=== PATIENT | male | born 1935 | race Caucasian/White ===

== ENCOUNTER 2017-01-02 07:20 | Inpatient (IN) | payer MEDICARE, OTHER ==
--- NOTE | 2017-01-02 08:18 | EDM.PDOC ---
ED HPI GENERAL MEDICAL PROBLEM - General Chief Complaint: Genitourinary Problem Stated Complaint: difficulty voiding Time Seen by Provider: 01/02/17 07:59 Source of Information: Reports: Patient, Family () History Limitations: Reports: No Limitations - History of Present Illness INITIAL COMMENTS - FREE TEXT/NARRATIVE: Patient presents with mild fever and difficulty urinating that started this morning. He was able to pass a small amount this AM and says he passed urine fine yesterday. He denies abdominal pain or flank pain. About a year ago he had a similar problem but was worse and was hospitalized. He has Parkinsons. - Related Data Allergies Allergy/AdvReac Type Severity Reaction Status Date / Time ceftriaxone sodium Allergy Shortness Verified 01/02/17 07:34 [From Rocephin] of Breath Penicillins Allergy Cannot Verified 01/02/17 07:34 Remember Home Meds: Home Meds Acetaminophen [Tylenol] 650 mg PO DAILY 11/15/15 [History] Aspirin 162 mg PO BRK 11/15/15 [History] Carbidopa/Levodopa [Carbidopa-Levodopa 25-100 Tab] 25 - 100 mg PO TID 11/15/15 [ History] Cholecalciferol (Vitamin D3) [D3-2000] 2,000 unit PO DAILY 11/15/15 [History] Cyanocobalamin (Vitamin B-12) [Cyanocobalamin Injection] 1,000 mcg IM Q30D 11/14 [History] Nitroglycerin [Nitrostat] 0.4 mg SL Q5M PRN 11/15/15 [History] Simvastatin [Zocor] 40 mg PO BEDTIME 11/15/15 [History] Lisinopril 5 mg PO DAILY 01/02/17 [History] Past Medical History HEENT History: Reports: Hard of Hearing Neurological History: Reports: Parkinson's - Past Surgical History Neurological Surgical History: Reports: None Social & Family History - Tobacco Use Smoking Status *Q: Former Smoker Years of Tobacco use: 60 Packs/Tins Daily: 1 Used Tobacco, but Quit: Yes Month Tobacco Last Used: 2012 Second Hand Smoke Exposure: Yes - Recreational Drug Use Recreational Drug Use: No ED ROS GENERAL - Review of Systems Review Of Systems: See Below Constitutional: Reports: Fever, Weakness (a little last two days). Denies: Chills HEENT: Denies: Ear Pain, Throat Pain Respiratory: Denies: Shortness of Breath, Cough Cardiovascular: Denies: Chest Pain, Edema, Lightheadedness, Syncope GI/Abdominal: Denies: Abdominal Pain, Vomiting : Reports: Urinary Retention. Denies: Flank Pain Musculoskeletal: Reports: No Symptoms Skin: Denies: Cyanosis, Jaundice, Mottled, Pallor, Diaphoresis Neurological: Denies: Confusion, Dizziness, Syncope, Trouble Speaking Psychiatric: Denies: Agitation, Anxiety ED EXAM, RENAL/ - Physical Exam Exam: See Below Exam Limited By: No Limitations General Appearance: Alert, WD/WN, No Apparent Distress Eye Exam: Bilateral Eye: EOMI, Normal Inspection, PERRL Ears: Normal External Exam, Hearing Grossly Normal Nose: No Blood Throat/Mouth: Normal Lips, Normal Voice, No Airway Compromise Head: Atraumatic, Normocephalic Neck: Normal Inspection, Supple, Non-Tender Respiratory/Chest: No Respiratory Distress, Lungs Clear, Normal Breath Sounds Cardiovascular: Regular Rate, Rhythm, No Murmur. No: Normal Peripheral Pulses ( all the peripheral pulses are a little weak, 1+ but cap refill is good) GI/Abdominal: Normal Bowel Sounds, Soft, Non-Tender, No Organomegaly Back Exam: No: CVA Tenderness (L), CVA Tenderness (R) Extremities: Normal Inspection, Normal Range of Motion, Non-Tender, No Pedal Edema, Normal Capillary Refill Neurological: Alert, Oriented, Normal Cognition, No Motor/Sensory Deficits Psychiatric: Normal Affect, Normal Mood Skin Exam: Warm, Dry, Intact, Normal Color, No Rash Course - Vital Signs Last Recorded V/S: Last Vital Signs Temp 97.4 F 01/02/17 08:31 Pulse 70 01/02/17 07:28 Resp 18 01/02/17 07:28 BP 130/61 01/02/17 07:28 Pulse Ox 92 L 01/02/17 07:28 - Orders/Labs/Meds Orders: Active Orders 24 hr Category Date Time Status CULTURE URINE [RM] Stat Lab 01/02/17 08:22 Ordered Labs: Laboratory Tests 01/02/17 01/02/17 01/02/17 Range/Units 08:00 08:00 08:20 WBC 10.4 H (5.0-10.0) 10^3/uL RBC 4.77 (4.50-6.00) 10^6/uL Hgb 13.8 (13.0-17.0) g/dL Hct 41.2 (40.0-52.0) % MCV 86.3 (82.0-92.0) fL MCH 29.0 (27.0-31.0) pg MCHC 33.6 (32.0-36.0) g/dL RDW 13.0 (11.5-14.5) % Plt Count 218 (150-300) 10^3/uL MPV 9.7 (7.4-10.4) fL Neut % (Auto) 81.4 H (50.0-70.0) % Lymph % (Auto) 11.2 L (20.0-40.0) % Hamlin % (Auto) 6.6 (2.0-8.0) % Eos % (Auto) 0.5 L (1.0-3.0) % Baso % (Auto) 0.3 (0.0-1.0) % Neut # (Auto) 8.4 H (2.5-7.0) 10^3/uL Lymph # (Auto) 1.2 (1.0-4.0) 10^3/uL Hamlin # (Auto) 0.7 (0.1-0.8) 10^3/uL Eos # (Auto) 0.1 (0.1-0.3) 10^3/uL Baso # (Auto) 0.0 (0.0-0.1) 10^3/uL Sodium 140 (136-145) mmol/L Potassium 4.0 (3.3-5.3) mmol/L Chloride 105 (98-115) mmol/L Carbon Dioxide 25.6 (21.0-32.0) mmol/L BUN 27 H (6-25) mg/dL Creatinine 1.49 H (0.51-1.17) mg/dL Est Cr Clr Drug Dosing TNP Estimated GFR (MDRD) 45 mL/min Glucose 126 H (70-110) mg/dL Calcium 8.7 (8.7-10.3) mg/dL Specimen Type Urincath Urine Color Yellow (YELLOW) Urine Appearance Cloudy H (CLEAR) Urine pH 6.0 (5.0-9.0) Ur Specific Dewey 1.020 (1.005-1.030) Urine Protein 30 H (NEGATIVE) mg/dL Urine Glucose (UA) Negative (NEGATIVE) mg/dL Urine Ketones 15 H (NEGATIVE) mg/dL Urine Occult Blood Large H (NEGATIVE) Urine Nitrite Negative (NEGATIVE) Urine Bilirubin Small H (NEGATIVE) Urine Urobilinogen 1.0 (0.2-1.0) E.U./dL Ur Leukocyte Esterase Negative (NEGATIVE) Urine RBC Semi-packed /HPF Urine WBC 0-5 /HPF Ur Epithelial Cells Few /LPF Urine Bacteria Few (NONE TO FEW) /HPF Meds: Medications Discontinued Medications Generic Name Dose Route Start Last Admin Trade Name Freq PRN Reason Stop Dose Admin Ciprofloxacin 500 mg 01/02/17 09:17 01/02/17 09:35 Ciprofloxacin Hcl PO 01/02/17 09:18 500 mg ONETIME ONE Administration Sodium Chloride 1,000 mls @ 999 mls/hr 01/02/17 09:17 01/02/17 09:26 Normal Saline IV 01/02/17 10:17 999 mls/hr .BOLUS ONE Administration - Re-Assessments/Exams Free Text/Narrative Re-Assessment/Exam: 01/02/17 09:18 Discussed findings with patient, his and with Estevan Vance, VIKTOR (PCP). Will give a fluid bolus and see if pt can void. Will also treat with Cipro now. 01/02/17 10:34 Follow one liter IV bolus patient felt urge to urinate but could not. Discussed with pt and with Estevan Vance and will admit for treatment. Will place Graves in ER. Departure - Departure Time of Disposition: 10:32 Disposition: Admitted As Inpatient 66 Condition: Good Clinical Impression: UTI (urinary tract infection), bacterial, Urine retention, Dehydration Fever Qualifiers: Fever type: unspecified Qualified Code(s): R50.9 - Fever, unspecified - Discharge Information Referrals: PCP,None [Primary Care Provider] - Forms: ED Department Discharge - My Orders Last 24 Hours: My Active Orders 01/02/17 08:22 CULTURE URINE [RM] Stat - Assessment/Plan Last 24 Hours: My Active Orders 01/02/17 08:22 CULTURE URINE [RM] Stat
[2017-01-02 08:25] LABS: CHLORIDE,CL 105 mmol/L (98-115); SODIUM,NA 140 mmol/L (136-145)
[2017-01-02] MEDS ORDERED: Sodium Chloride 0.9% 1,000 ML IV ONE (09:17)
[2017-01-02] MEDS ORDERED: Ciprofloxacin 500 MG Tab PO ONE (09:17)
[2017-01-02] MEDS ORDERED: Nitroglycerin 0.4 MG Tab.SL SL PRN (12:54)
[2017-01-02] MEDS ORDERED: Sodium Chloride 0.9% 1,000 ML IV SCH (13:00)
[2017-01-02] MEDS: Carbidopa/Levodopa 25-100 MG Tab PO SCH ×2 (14:46→20:45)
[2017-01-02] MEDS: Tamsulosin 0.4 MG Cap.ER PO SCH (17:49)
[2017-01-02] MEDS: Aspirin 81 MG Tab.Chew PO SCH (20:45)
[2017-01-02] MEDS: Ciprofloxacin in D5W 400 MG in Premix Bag 1 BAG IV SCH ×2 (20:48)
[2017-01-03] MEDS: Tamsulosin 0.4 MG Cap.ER PO SCH (08:34)
[2017-01-03] MEDS: Ciprofloxacin in D5W 400 MG in Premix Bag 1 BAG IV SCH ×4 (08:34→21:15)
[2017-01-03] MEDS: Lisinopril 5 MG Tab PO SCH (08:34)
[2017-01-03] MEDS: Carbidopa/Levodopa 25-100 MG Tab PO SCH ×3 (08:35→21:15)
[2017-01-03] MEDS: Acetaminophen 325 MG Tab PO SCH (08:35)
[2017-01-03] MEDS: Cholecalciferol (Vitamin D3) 1,000 Unit Tab PO SCH (08:35)
[2017-01-03] MEDS ORDERED: Tamsulosin 0.4 MG Cap.ER PO SCH (09:00)
[2017-01-03] MEDS: Sodium Chloride 0.9% 100 ML IV SCH (09:25)
--- NOTE | 2017-01-03 10:18 | PCM.HP ---
H&P History of Present Illness - General Date of Service: 01/03/17 Admit Problem/Dx: Admission Diagnosis/Problem Admission Diagnosis/Problem UTI (urinary tract infection), uncomplicated Source of Information: Patient, Old Records, Provider, RN History Limitations: Reports: No Limitations - History of Present Illness Initial Comments - Free Text/Narative: 81-year-old gentleman who I evaluated this morning for the first time was admitted through the ED yesterday he had come in for mild febrile episode and having some acute urinary retention which just started that morning. Patient states he normally has no difficulty passing urine but stated he only was able to pass a small amount this morning. He denies BPH or terminal dribbling. He had no abdominal pain or flank pain. Patient stated he was hospitalized for similar symptoms approximately 1 year ago. PSA March 2016 1.48 - Related Data Allergies/Adverse Reactions: Allergies Allergy/AdvReac Type Severity Reaction Status Date / Time ceftriaxone sodium Allergy Shortness Verified 01/02/17 07:34 [From Rocephin] of Breath Penicillins Allergy Cannot Verified 01/02/17 07:34 Remember Home Medications: Home Meds Acetaminophen [Tylenol] 650 mg PO DAILY 11/15/15 [History] Aspirin 162 mg PO BEDTIME 11/15/15 [History] Carbidopa/Levodopa [Carbidopa-Levodopa 25-100 Tab] 25 - 100 mg PO TID 11/15/15 [ History] Cholecalciferol (Vitamin D3) [D3-2000] 2,000 unit PO DAILY 11/15/15 [History] Cyanocobalamin (Vitamin B-12) [Cyanocobalamin Injection] 1,000 mcg IM Q30D 11/14 [History] Nitroglycerin [Nitrostat] 0.4 mg SL Q5M PRN 11/15/15 [History] Simvastatin [Zocor] 40 mg PO BEDTIME 11/15/15 [History] Lisinopril 5 mg PO DAILY 01/02/17 [History] Past Medical History HEENT History: Reports: Hard of Hearing Cardiovascular History: Reports: High Cholesterol, Hypertension Respiratory History: Reports: COPD Genitourinary History: Reports: UTI, Recurrent Musculoskeletal History: Reports: Arthritis, Other (See Below) Other Musculoskeletal History: parkinson's disease Neurological History: Reports: Parkinson's Hematologic History: Reports: B12 Deficiency - Past Surgical History Male Surgical History: Reports: None Neurological Surgical History: Reports: None Musculoskeletal Surgical History: Reports: None Social & Family History - Family History HEENT: Reports: None Cardiac: Reports: None, [place] (Parents with heart attack,) Respiratory: Reports: None GI: Reports: None : Reports: None OBGYN: Reports: None Musculoskeletal: Reports: None Neurological: Reports: None Psychiatric: Reports: None Endocrine/Metabolic: Reports: None Hematologic: Reports: None Immunologic: Reports: None Dermatologic: Reports: None Oncologic: Reports: Other (See Below) (Brother unknown cancer,) - Tobacco Use Smoking Status *Q: Former Smoker Years of Tobacco use: 60 Packs/Tins Daily: 1 Used Tobacco, but Quit: Yes Month Tobacco Last Used: 2012 Tobacco Use Comment: Smoked until 4 years ago. He was on spiriva,advair. He has been off of those medications for awhile. Second Hand Smoke Exposure: Yes - Caffeine Use Caffeine Use: Reports: Coffee - Recreational Drug Use Recreational Drug Use: No H&P Review of Systems - Review of Systems: Review Of Systems: See Below General: Reports: Fever. Denies: Chills, Malaise, Weakness, Fatigue, Night Sweats, Diaphoresis, Decreased Appetite, Weight Loss, Weight Gain HEENT: Reports: No Symptoms Pulmonary: Reports: No Symptoms Cardiovascular: Denies: Palpitations, Orthopnea, Edema, Blood Pressure Problem Gastrointestinal: Reports: Constipation (No bowel movement in 7 days). Denies: Abdominal Pain, Black Stool, Diarrhea, Decreased Appetite, Distension, Nausea Genitourinary: Reports: Retention. Denies: Pain, Urgency, Flank Pain Skin: Reports: No Symptoms Psychiatric: Reports: Confusion (Lucid this morning, however some confusion regarding recent illness and why he is in hospital) Neurological: Reports: Confusion. Denies: Paresthesia, Weakness, Change in Speech Hematologic/Lymphatic: Reports: No Symptoms Immunologic: Reports: No Symptoms Exam - Exam Exam: See Below - Vital Signs Vital Signs: Last Vital Signs Temp 99.8 F 01/03/17 06:27 Pulse 67 01/03/17 06:27 Resp 28 H 01/03/17 06:27 BP 146/81 H 01/03/17 08:34 Pulse Ox 91 L 01/03/17 06:27 Weight: 142 lb - Exam General: Alert. No: Oriented (Confused on day of week.) Neck: Supple. No: JVD Lungs: Clear to Auscultation Cardiovascular: Regular Rate, Regular Rhythm GI/Abdominal Exam: Normal Bowel Sounds, No Distention (Male) Exam: No Hernia. No: Hernia Rectal (Males) Exam: BPH. No: Prostate Normal (Mild to moderate prostate enlargement, no nodularity) Back Exam: No: CVA Tenderness (L), CVA Tenderness (R) Extremities: No: Pedal Edema Peripheral Pulses: 2+: Radial (L), Radial (R) Skin: Warm, Dry, Intact Neurological: Cranial Nerves Intact, Reflexes Equal Bilateral Neuro Extensive - Mental Status: Alert, Normal Mood/Affect, Memory Loss-Remote Events. No: Oriented x3, Disorientation to Place Neuro Extensive - Motor, Sensory, Reflexes: CN II-XII Intact, Normal Gait, Normal Reflexes Psychiatric: Alert, Normal Affect, Normal Mood - Patient Data Result Diagrams: 01/02/17 08:00 01/02/17 08:00 *Q Meaningful Use (ADM) - VTE *Q VTE Criteria *Q: - Stroke *Q Stroke Criteria *Q: - AMI *Q AMI Criteria *Q: Problem List Initiated/Reviewed/Updated: Yes Orders Last 24hrs: Active Orders 24 hr Category Date Time Status Daily Weight [Height and Weight] [RC] 0700 Care 01/02/17 13:00 Active Intake and Output [RC] 0600,1400,2200 Care 01/02/17 13:00 Active 2 Gram Sodium Diet [DIET] Diet 01/02/17 Dinner Active CULTURE BLOOD [BC] Stat Lab 01/02/17 13:45 Received CULTURE BLOOD [BC] Stat Lab 01/02/17 14:00 Received Acetaminophen [Tylenol] Med 01/03/17 09:00 Active 650 mg PO DAILY Aspirin Med 01/02/17 21:00 Active 162 mg PO BEDTIME Carbidopa/Levodopa [Sinemet 25-100 mg] Med 01/02/17 14:00 Active 1 tab PO TID Cholecalciferol (Vitamin D3) [Vitamin D3] Med 01/03/17 09:00 Active 2,000 units PO DAILY Ciprofloxacin in D5W [Cipro in D5W 400 MG/200 ML] 400 Med 01/02/17 21:00 Active mg Premix Bag 1 bag IV Q12H Lisinopril [Prinivil] Med 01/03/17 09:00 Active 5 mg PO DAILY Nitroglycerin [Nitrostat] Med 01/02/17 12:54 Active 0.4 mg SL Q5M PRN Sodium Chloride 0.9% [Normal Saline] 100 ml Med 01/03/17 09:00 Active IV DAILY@0900 Tamsulosin [Flomax] Med 01/02/17 18:00 Active 0.4 mg PO PCBREAKFAST Blood Culture x2 Reflex Set [OM.PC] Stat Oth 01/02/17 12:56 Ordered Medication Orders Acetaminophen (Tylenol) 650 mg PO DAILY [facility] Last Admin: 01/03/17 08:35 Dose: 650 mg Aspirin (Aspirin) 162 mg PO BEDTIME [facility] Last Admin: 01/02/17 20:45 Dose: 162 mg Carbidopa/Levodopa (Sinemet 25-100 Mg) 1 tab PO TID [facility] Last Admin: 01/03/17 08:35 Dose: 1 tab Admin: 01/02/17 20:45 Dose: 1 tab Admin: 01/02/17 14:46 Dose: 1 tab Cholecalciferol (Vitamin D3) 2,000 units PO DAILY [facility] Last Admin: 01/03/17 08:35 Dose: 2,000 units Ciprofloxacin/Dextrose 400 mg/ (Premix) 200 mls @ 200 mls/hr IV Q12H [facility] Last Admin: 01/03/17 08:34 Dose: 200 mls/hr Infusion: 01/02/17 21:48 Dose: 200 mls/hr Admin: 01/02/17 20:48 Dose: 200 mls/hr Sodium Chloride (Normal Saline) 100 mls @ 20 mls/hr IV DAILY@0900 [facility] Last Admin: 01/03/17 09:25 Dose: 20 mls/hr Lisinopril (Prinivil) 5 mg PO DAILY [facility] Last Admin: 01/03/17 08:34 Dose: 5 mg Nitroglycerin (Nitrostat) 0.4 mg SL Q5M PRN PRN Reason: Chest Pain Tamsulosin HCl (Flomax) 0.4 mg PO PCBREAKFAST [facility] Last Admin: 01/03/17 08:34 Dose: 0.4 mg Admin: 01/02/17 17:49 Dose: 0.4 mg Assessment/Plan Comment:: HISTORY OF PRESENT ILLNESS 81-year-old gentleman who I evaluated this morning for the first time was admitted through the ED yesterday he had come in for mild febrile episode and having some acute urinary retention which just started that morning. Patient states he normally has no difficulty passing urine but stated he only was able to pass a small amount this morning. He denies BPH or terminal dribbling. He had no abdominal pain or flank pain. Patient stated he was hospitalized for similar symptoms approximately 1 year ago. PSA March 2016 1.48 Pertinent ED workup, oral Cipro 1, gentle fluid bolus, Graves catheter, UA consistent with UTI--symptomatic CODE STATUS, full code Room number, 125 ____ Ongoing diagnostics procedures after patient arrived on the floor included changing oral to IV antibiotics, medication reconciliation, adding alpha-sarah , trial without catheter procedure (TWOC) adjusting IV fluids, urine cultures and blood culture surveillance, VANESSA for possible BPH. Primary assessment/plan Acute urinary retention, digital rectal exam this morning prostate size small to moderate, no nodularity, placed on alpha-sarah 0.4 mg by mouth daily Flomax , MAP good. Decompressed catheter yesterday been removed a last night at 2300, attempt a trial without catheter this morning. Bladder scan as directed. If no bowel movement past several days likely contributable to his retention, milk of magnesia today. Urinary tract infection, Cipro 400 mg IV twice a day based off estimated clearance, Urine and blood cultures pending, likely Escherichia coli. Type I hypersensitivity reaction to beta-lactamases. Will need blood culture surveillance Leukocytosis without reactive thrombocytosis, MAXIMUM TEMPERATURE 99.8, continue antibiotics, blood cultures pending, qSOFA 2/3. MAP good. Repeat today Chronic medical conditions HFpEF, grade 1 diastolic dysfunction, chronic, on afterload reduction, creatinine 1.49. Intake output, daily weights. Will monitor carefully for fluid overload Coronary artery disease, aspirin 81 mg Essential hypertension, BILL inhibitor, creatinine adequate Peripheral vascular disease, aspirin 81 mg Hyperlipidemia, on Zocor Parkinson's disease, controlled on Sinemet 25-100 Vitamin B12 deficiency, supplementation every month
[2017-01-03] MEDS: Magnesium Hydroxide 400 MG/5 ML Susp 30 ML Cup PO SCH (11:03)
[2017-01-03] MEDS: Aspirin 81 MG Tab.Chew PO SCH (21:15)
[2017-01-04] MEDS: Ciprofloxacin in D5W 400 MG in Premix Bag 1 BAG IV SCH ×4 (08:19→20:52)
[2017-01-04] MEDS: Sodium Chloride 0.9% 100 ML IV SCH ×2 (08:19→20:56)
[2017-01-04] MEDS: Magnesium Hydroxide 400 MG/5 ML Susp 30 ML Cup PO SCH (08:20)
[2017-01-04] MEDS: Carbidopa/Levodopa 25-100 MG Tab PO SCH ×3 (08:21→20:52)
[2017-01-04] MEDS: Acetaminophen 325 MG Tab PO SCH (08:21)
[2017-01-04] MEDS: Cholecalciferol (Vitamin D3) 1,000 Unit Tab PO SCH (08:21)
[2017-01-04] MEDS: Tamsulosin 0.4 MG Cap.ER PO SCH (08:21)
[2017-01-04] MEDS: Lisinopril 5 MG Tab PO SCH (08:22)
--- NOTE | 2017-01-04 10:46 | PCM.PN ---
- General Info Date of Service: 01/04/17 Functional Status: Reports: Pain Controlled, Tolerating Diet, Urinating (0500- post void residual of 195 after a 200 mL void reported. ) - Review of Systems General: Denies: Fever, Chills Pulmonary: Denies: Shortness of Breath Cardiovascular: Denies: Chest Pain, Edema Gastrointestinal: Reports: Constipation. Denies: Abdominal Pain Genitourinary: Reports: Frequency. Denies: Dysuria, Retention - Patient Data Vitals - Most Recent: Last Vital Signs Temp 97.0 F 01/04/17 06:50 Pulse 79 01/04/17 06:50 Resp 20 01/04/17 06:50 BP 152/70 H 01/04/17 08:22 Pulse Ox 91 L 01/04/17 06:50 Weight - Most Recent: 144 lb 6 oz I&O - Last 24 Hours: Intake & Output 01/03/17 01/04/17 01/04/17 22:59 06:59 14:59 Intake Total 120 100 Output Total 300 500 Balance -180 -400 Lab Results Last 24 Hours: Laboratory Results - last 24 hr 01/03/17 01/04/17 01/04/17 Range/Units 11:00 09:45 09:45 WBC 11.0 H 8.0 (5.0-10.0) 10^3/uL RBC 4.55 4.44 L (4.50-6.00) 10^6/uL Hgb 13.2 12.8 L (13.0-17.0) g/dL Hct 38.6 L 38.8 L (40.0-52.0) % MCV 84.8 87.4 (82.0-92.0) fL MCH 29.0 28.9 (27.0-31.0) pg MCHC 34.2 33.1 (32.0-36.0) g/dL RDW 12.8 12.6 (11.5-14.5) % Plt Count 197 208 (150-300) 10^3/uL MPV 9.1 9.5 (7.4-10.4) fL Neut % (Auto) 87.3 H 78.3 H (50.0-70.0) % Lymph % (Auto) 8.2 L 11.4 L (20.0-40.0) % Teller % (Auto) 3.8 7.2 (2.0-8.0) % Eos % (Auto) 0.6 L 2.2 (1.0-3.0) % Baso % (Auto) 0.1 0.9 (0.0-1.0) % Neut # (Auto) 9.6 H 6.2 (2.5-7.0) 10^3/uL Lymph # (Auto) 0.9 L 0.9 L (1.0-4.0) 10^3/uL Teller # (Auto) 0.4 0.6 (0.1-0.8) 10^3/uL Eos # (Auto) 0.1 0.2 (0.1-0.3) 10^3/uL Baso # (Auto) 0.0 0.1 (0.0-0.1) 10^3/uL Sodium 139 (136-145) mmol/L Potassium 3.7 (3.3-5.3) mmol/L Chloride 102 (98-115) mmol/L Carbon Dioxide 27.4 (21.0-32.0) mmol/L BUN 25 (6-25) mg/dL Creatinine 1.65 H (0.51-1.17) mg/dL Est Cr Clr Drug Dosing 32.52 mL/min Estimated GFR (MDRD) 40 mL/min Glucose 116 H (70-110) mg/dL Calcium 8.3 L (8.7-10.3) mg/dL [place] Results Last 24 Hours: Microbiology 01/02/17 14:00 Aerobic Blood Culture - Preliminary Blood - Venous - Lab Draw NO GROWTH AFTER 1 DAY Anaerobic Blood Culture - Preliminary NO GROWTH AFTER 1 DAY 01/02/17 13:45 Aerobic Blood Culture - Preliminary Blood - Venous NO GROWTH AFTER 1 DAY Anaerobic Blood Culture - Preliminary NO GROWTH AFTER 1 DAY Med Orders - Current: Current Medications Acetaminophen (Tylenol) 650 mg PO DAILY [facility] Last Admin: 01/04/17 08:21 Dose: 650 mg Aspirin (Aspirin) 162 mg PO BEDTIME [facility] Last Admin: 01/03/17 21:15 Dose: 162 mg Carbidopa/Levodopa (Sinemet 25-100 Mg) 1 tab PO TID [facility] Last Admin: 01/04/17 08:21 Dose: 1 tab Cholecalciferol (Vitamin D3) 2,000 units PO DAILY [facility] Last Admin: 01/04/17 08:21 Dose: 2,000 units Ciprofloxacin/Dextrose 400 mg/ (Premix) 200 mls @ 200 mls/hr IV Q12H [facility] Last Admin: 01/04/17 08:19 Dose: 200 mls/hr Sodium Chloride (Normal Saline) 100 mls @ 20 mls/hr IV DAILY@0900 [facility] Last Admin: 01/04/17 08:19 Dose: 20 mls/hr Lisinopril (Prinivil) 5 mg PO DAILY [facility] Last Admin: 01/04/17 08:22 Dose: 5 mg Magnesium Hydroxide (Milk Of Magnesia) 30 ml PO DAILY [facility] Last Admin: 01/04/17 08:20 Dose: 30 ml Nitroglycerin (Nitrostat) 0.4 mg SL Q5M PRN PRN Reason: Chest Pain Tamsulosin HCl (Flomax) 0.4 mg PO PCBREAKFAST [facility] Last Admin: 01/04/17 08:21 Dose: 0.4 mg Discontinued Medications Ciprofloxacin (Ciprofloxacin Hcl) 500 mg PO ONETIME ONE Stop: 01/02/17 09:18 Last Admin: 01/02/17 09:35 Dose: 500 mg Sodium Chloride (Normal Saline) 1,000 mls @ 999 mls/hr IV .BOLUS ONE Stop: 01/02/17 10:17 Last Admin: 01/02/17 09:26 Dose: 999 mls/hr Sodium Chloride (Normal Saline) 1,000 mls @ 60 mls/hr IV ASDIRECTED [facility] Stop: 01/02/17 23:00 Last Admin: 01/02/17 14:46 Dose: 60 mls/hr Tamsulosin HCl (Flomax) 0.4 mg PO PCBREAKFAST [facility] - Exam Quality Assessment: DVT Prophylaxis (Score of 3-placed on lovenox). No: Supplemental Oxygen, Urine Catheter General: Alert, Oriented, Cooperative, No Acute Distress Lungs: Clear to Auscultation, Normal Respiratory Effort Cardiovascular: Regular Rate, Regular Rhythm GI/Abdominal Exam: Normal Bowel Sounds, Soft, Non-Tender Extremities: No Pedal Edema Skin: Warm, Dry Psy/Mental Status: Alert, Normal Affect, Normal Mood - Problem List Review Problem List Initiated/Reviewed/Updated: Yes - My Orders Last 24 Hours: My Active Orders 01/04/17 10:35 Up With Assistance [RC] ASDIRECTED 01/04/17 10:36 Bladder Scan [RC] ASDIRECTED - Plan Plan:: Primary assessment/plan Acute urinary retention. Post residual revealed 195 mL after 200 mL active void. Will have nursing perform bladder scans after each void and will monitor residual. If residual consistently 300-350 or higher, will consider straight catheterization. Continue flomax. Patient asymptomatic. Creatinine up to 1.65, GFR 40. Repeat BMP in AM. UTI. WBC 8.0, left shift improving. Urine culture no growth after 2 days. Blood cultures x 2 showing no growth after 1 day. Continue IV Cipro today, then will consider change to Bactrim DS tomorrow. Constipation. Continue with milk of magnesia daily. Leukocytosis, improving. WBC 8.0. Secondary assessment/plan Chronic diastolic heart failure, stable. Weight same. Continue I & O and daily weights. Coronary artery disease. Continue aspirin. Hypertension. Continue lisinopril. Peripheral vascular disease. Hyperlipidemia. Continue zocor. Parkinson's disease. Continue sinemet. Vitamin B12 deficiency. Receives monthly b12 injections. DVT prophylaxis. Score of 3. Placed on lovenox 30 mg subQ daily due to creatinine. Overall plan: Will continue to monitor intake and output. Will bladder scan and monitor residuals. Plan of care reviewed with Dr. Khoury. She is in agreement with this plan of care.
[2017-01-04] MEDS: Enoxaparin 30 MG/0.3 ML Syringe SUBCUT SCH (12:42)
[2017-01-04] MEDS: Aspirin 81 MG Tab.Chew PO SCH ×2 (19:43→22:39)
[2017-01-05] MEDS: Ciprofloxacin in D5W 400 MG in Premix Bag 1 BAG IV SCH ×2 (08:58)
[2017-01-05] MEDS: Sodium Chloride 0.9% 100 ML IV SCH (08:58)
[2017-01-05] MEDS: Magnesium Hydroxide 400 MG/5 ML Susp 30 ML Cup PO SCH (08:59)
[2017-01-05] MEDS: Lisinopril 5 MG Tab PO SCH (09:00)
[2017-01-05] MEDS: Tamsulosin 0.4 MG Cap.ER PO SCH (09:00)
[2017-01-05] MEDS: Cholecalciferol (Vitamin D3) 1,000 Unit Tab PO SCH (09:01)
[2017-01-05] MEDS: Carbidopa/Levodopa 25-100 MG Tab PO SCH ×3 (09:01→20:46)
[2017-01-05] MEDS: Acetaminophen 325 MG Tab PO SCH (09:01)
[2017-01-05] MEDS: Enoxaparin 30 MG/0.3 ML Syringe SUBCUT SCH (09:04)
[2017-01-05] MEDS ORDERED: Sodium Chloride 0.9% 5 ML Syringe FLUSH PRN (10:40)
--- NOTE | 2017-01-05 11:09 | PCM.PN ---
- General Info Date of Service: 01/05/17 Functional Status: Reports: Tolerating Diet, Ambulating, Urinating (frequently with occasional unsuccessful attempts), New Symptoms (states he doesn't feel right today) - Review of Systems HEENT: Denies: Headaches Pulmonary: Denies: Shortness of Breath Cardiovascular: Denies: Chest Pain Gastrointestinal: Reports: Abdominal Pain (bloated feeling/discomfort), Nausea. Denies: Decreased Appetite, Vomiting Genitourinary: Reports: Frequency, Urgency, Retention - Patient Data Vitals - Most Recent: Last Vital Signs Temp 98.7 F 01/05/17 07:00 Pulse 66 01/05/17 07:00 Resp 20 01/05/17 07:00 BP 146/67 H 01/05/17 09:00 Pulse Ox 92 L 01/05/17 07:00 Weight - Most Recent: 143 lb 7 oz I&O - Last 24 Hours: Intake & Output 01/04/17 01/05/17 01/05/17 22:59 06:59 14:59 Intake Total 425 0 Output Total 500 200 Balance -75 -200 Lab Results Last 24 Hours: Laboratory Results - last 24 hr 01/05/17 Range/Units 07:25 Sodium 139 (136-145) mmol/L Potassium 4.1 (3.3-5.3) mmol/L Chloride 103 (98-115) mmol/L Carbon Dioxide 26.6 (21.0-32.0) mmol/L BUN 25 (6-25) mg/dL Creatinine 1.75 H (0.51-1.17) mg/dL Est Cr Clr Drug Dosing 30.47 mL/min Estimated GFR (MDRD) 38 mL/min Glucose 103 (70-110) mg/dL Calcium 8.6 L (8.7-10.3) mg/dL [place] Results Last 24 Hours: Microbiology 01/02/17 14:00 Aerobic Blood Culture - Preliminary Blood - Venous - Lab Draw NO GROWTH AFTER 2 DAYS Anaerobic Blood Culture - Preliminary NO GROWTH AFTER 2 DAYS 01/02/17 13:45 Aerobic Blood Culture - Preliminary Blood - Venous NO GROWTH AFTER 2 DAYS Anaerobic Blood Culture - Preliminary NO GROWTH AFTER 2 DAYS Med Orders - Current: Current Medications Acetaminophen (Tylenol) 650 mg PO DAILY [facility] Last Admin: 01/05/17 09:01 Dose: Not Given Aspirin (Aspirin) 162 mg PO BEDTIME [facility] Last Admin: 01/04/17 22:39 Dose: Not Given Carbidopa/Levodopa (Sinemet 25-100 Mg) 1 tab PO TID [facility] Last Admin: 01/05/17 09:01 Dose: 1 tab Cholecalciferol (Vitamin D3) 2,000 units PO DAILY [facility] Last Admin: 01/05/17 09:01 Dose: 2,000 units Enoxaparin Sodium (Lovenox) 30 mg SUBCUT DAILY [facility] Last Admin: 01/05/17 09:04 Dose: 30 mg Sodium Chloride (Normal Saline) 100 mls @ 20 mls/hr IV DAILY@0900 [facility] Last Admin: 01/05/17 08:58 Dose: 20 mls/hr Lisinopril (Prinivil) 5 mg PO DAILY [facility] Last Admin: 01/05/17 09:00 Dose: 5 mg Magnesium Hydroxide (Milk Of Magnesia) 30 ml PO DAILY [facility] Last Admin: 01/05/17 08:59 Dose: 30 ml Nitroglycerin (Nitrostat) 0.4 mg SL Q5M PRN PRN Reason: Chest Pain Sodium Chloride (Syrex Flush) 5 ml FLUSH Q8HR PRN PRN Reason: Keep Vein Open Tamsulosin HCl (Flomax) 0.4 mg PO PCBREAKFAST [facility] Last Admin: 01/05/17 09:00 Dose: 0.4 mg Terazosin HCl (Hytrin) 2 mg PO DAILY@2100 [facility] Trimethoprim/Sulfamethoxazole (Septra Ds) 1 tab PO BID [facility] Stop: 01/12/17 21:00 Discontinued Medications Ciprofloxacin (Ciprofloxacin Hcl) 500 mg PO ONETIME ONE Stop: 01/02/17 09:18 Last Admin: 01/02/17 09:35 Dose: 500 mg Sodium Chloride (Normal Saline) 1,000 mls @ 999 mls/hr IV .BOLUS ONE Stop: 01/02/17 10:17 Last Admin: 01/02/17 09:26 Dose: 999 mls/hr Sodium Chloride (Normal Saline) 1,000 mls @ 60 mls/hr IV ASDIRECTED [facility] Stop: 01/02/17 23:00 Last Admin: 01/02/17 14:46 Dose: 60 mls/hr Ciprofloxacin/Dextrose 400 mg/ (Premix) 200 mls @ 200 mls/hr IV Q12H [facility] Last Admin: 01/05/17 08:58 Dose: 200 mls/hr Tamsulosin HCl (Flomax) 0.4 mg PO PCBREAKFAST GRACE - Exam Quality Assessment: DVT Prophylaxis (Lovenox initiated yesterday). No: Supplemental Oxygen, Urine Catheter General: Alert, Oriented, Cooperative, Mild Distress Lungs: Clear to Auscultation, Normal Respiratory Effort Cardiovascular: Regular Rate, Regular Rhythm, No Murmurs GI/Abdominal Exam: Soft, Distended (mild), Abnormal Bowel Sounds (hyperactive x 4) Extremities: No Pedal Edema Skin: Warm, Dry Psy/Mental Status: Alert, Normal Affect, Normal Mood. No: Anxious - Problem List Review Problem List Initiated/Reviewed/Updated: Yes - My Orders Last 24 Hours: My Active Orders 01/04/17 10:35 Up With Assistance [RC] ASDIRECTED 01/04/17 11:00 Enoxaparin [Lovenox] 30 mg SUBCUT DAILY 01/04/17 19:46 Communication Order [RC] ROUTINE 01/04/17 21:00 Insert Urinary Catheter [OM.PC] Q24H 01/04/17 21:01 Urinary Catheter Assessment [RC] ASDIRECTED 01/05/17 10:16 Abdomen 1V Flat [CR] Routine Abdomen 1V Upright [CR] Routine 01/05/17 10:23 Communication Order [RC] PER UNIT ROUTINE 01/05/17 10:25 Vital Signs [RC] 0700,1500,2300 01/05/17 10:30 Sulfamethoxazole/Trimethoprim [Septra DS] 1 tab PO BID 01/05/17 10:40 Sodium Chloride 0.9% [Syrex Flush] 5 ml FLUSH Q8HR PRN Saline Lock Insert [OM.PC] Routine 01/05/17 21:00 Terazosin [Hytrin] 2 mg PO DAILY@2100 01/06/17 05:11 BASIC METABOLIC PANEL,BMP [CHEM] AM - Plan Plan:: Primary assessment/plan Acute urinary retention. Post residual 188 to 255 with a one time above 300ml. Straight catheter x 1 last evening for 300ml due to inability to void. Change bladder scans to every shift and PRN. Straight catherterization if post void residual greater then 350 ml. Added Terazosin 2 mg daily to current Flomax therapy. Creatinine today is 1.75. BUN/Creatinine ration 14:1 coinciding with post renal picture. BMP in AM. UTI. UTI resolving. Urine culture no growth. Cipro DC'd and started on oral Bactrim DS BID. Abdominal distention. Abdominal xray ordered. Constipation. Continue with milk of magnesia daily. Improving. Leukocytosis, Resolved. Secondary assessment/plan Chronic diastolic heart failure, stable. Weight same. Continue I & O and daily weights DC'd. Coronary artery disease. Continue aspirin. Hypertension. Continue lisinopril. Peripheral vascular disease. Hyperlipidemia. Continue zocor. Parkinson's disease. Continue sinemet. Vitamin B12 deficiency. Receives monthly b12 injections. DVT prophylaxis. Score of 3. Placed on lovenox 30 mg subQ daily due to creatinine. Overall plan: Will continue to monitor intake and output. Will bladder scan and monitor residuals. will await results of abdominal x ray. Plan of care reviewed with Dr. Khoury. She is in agreement with this plan of care.
[2017-01-05] MEDS: Sulfamethoxazole/Trimethoprim 800-160 MG Tab PO SCH ×2 (11:24→20:46)
[2017-01-05] MEDS: Aspirin 81 MG Tab.Chew PO SCH (20:45)
[2017-01-05] MEDS ORDERED: Melatonin 3 MG Tab PO SCH (21:00)
[2017-01-05] MEDS ORDERED: Terazosin 1 MG Cap PO SCH (21:00)
[2017-01-06 06:51] VITALS: BP 159/65
[2017-01-06] MEDS: Lisinopril 5 MG Tab PO SCH (08:05)
[2017-01-06] MEDS: Tamsulosin 0.4 MG Cap.ER PO SCH (08:05)
[2017-01-06] MEDS: Magnesium Hydroxide 400 MG/5 ML Susp 30 ML Cup PO SCH (08:05)
[2017-01-06] MEDS: Carbidopa/Levodopa 25-100 MG Tab PO SCH (08:06)
[2017-01-06] MEDS: Acetaminophen 325 MG Tab PO SCH (08:06)
[2017-01-06] MEDS: Cholecalciferol (Vitamin D3) 1,000 Unit Tab PO SCH (08:06)
[2017-01-06] MEDS: Enoxaparin 30 MG/0.3 ML Syringe SUBCUT SCH (08:09)
[2017-01-06] MEDS: Sulfamethoxazole/Trimethoprim 800-160 MG Tab PO SCH (08:09)
[2017-01-06] MEDS ORDERED: Tamsulosin 0.4 MG Cap.ER PO ONE (09:29)
--- NOTE | 2017-01-06 09:54 | PCM.DCSUM1 ---
Discharge Summary - Hospital Course Brief History: This is an 81 year old male who presented to the emergency room due to inability to void and a mild febrile episode. The patient denied any history of difficulty passing his urine. He had no abdominal pain or flank pain. He stated that he hadn't had a stool for a couple days. The emergency room evaluation included a UA positive for large blood and few bacteria; elevated WBC of 10.4 with a left shift; BUN 27, creatinine 1.49, and GFR 45. The patient was given IV Cipro and a sawant catheter was placed. The patient's past medical history is significant for CAD, hypertension, PVD, chronic diastolic heart failure, hyperlipidemia, B12 deficiency, and Parkinson's disease. He was admitted to the hospital for futher monitoring and workup of his acute condition. - Discharge Data Discharge Date: 01/06/17 Discharge Disposition: Home, Self-Care 01 Condition: Good - Patient Summary/Data Complications: Patient continued to retain between 200-288 mL of urine post void. Sawant catheter was reinserted. Consults: Dr. Ewing, urologist, [facility] Labs Pending at D/C: None Recommended Follow-up Testing/Procedures: The patient is to have an outpatient renal and bladder ultrasound on 01/07/17 at the [facility]. - Patient Instructions Diet: Regular Diet as Tolerated Diet, Other: Must drink plenty of water-at least 6 cups per day Activity: As Tolerated Driving: Do Not Drive Showering/Bathing: May Shower Notify Provider of: Fever, Increased Pain, Nausea and/or Vomiting Other/Special Instructions: You will have an ultrasound of your kidneys and bladder tomorrow (01/07/17) at the [facility]. The staff will call you in the morning to set up a time. Please continue with the catheter until you are evaluated by urology. - Discharge Plan Prescriptions/Med Rec: Polyethylene Glycol 3350 [Miralax] 17 gm PO DAILY #30 powd.pack Sulfamethoxazole/Trimethoprim [IJD: Sulfamethoxazole/Trimethoprim DS] 1 tab PO BID #11 tablet Tamsulosin [Flomax] 0.8 mg PO PCBREAKFAST #30 cap.er Home Medications: Home Meds Acetaminophen [Tylenol] 650 mg PO DAILY 11/15/15 [History] Aspirin 162 mg PO BEDTIME 11/15/15 [History] Carbidopa/Levodopa [Carbidopa-Levodopa 25-100 Tab] 25 - 100 mg PO TID 11/15/15 [ History] Cholecalciferol (Vitamin D3) [D3-2000] 2,000 unit PO DAILY 11/15/15 [History] Cyanocobalamin (Vitamin B-12) [Cyanocobalamin Injection] 1,000 mcg IM Q30D 11/14 [History] Nitroglycerin [Nitrostat] 0.4 mg SL Q5M PRN 11/15/15 [History] Simvastatin [Zocor] 40 mg PO BEDTIME 11/15/15 [History] Lisinopril 5 mg PO DAILY 01/02/17 [History] Polyethylene Glycol 3350 [Miralax] 17 gm PO DAILY #30 powd.pack 01/06/17 [Rx] Sulfamethoxazole/Trimethoprim [IJD: Sulfamethoxazole/Trimethoprim DS] 1 tab PO BID #11 tablet 01/06/17 [Rx] Tamsulosin [Flomax] 0.8 mg PO PCBREAKFAST #30 cap.er 01/06/17 [Rx] Forms: ED Department Discharge Referrals: Zeus Ewing MD [Physician] - (Referral has been made to Dr. Ewing, urologist , at [facility]. His office will call you to set up a date and time for this week. Please let the [facility] in [place] know if you have not heard from them by Friday. ) - Discharge Summary/Plan Comment DC Time >30 min.: No Discharge Summary/Plan Comment: Date of admission: 01/02/17 Date of discharge: 01/06/17 Admitting diagnosis: Primary: UTI, Acute urinary retention, Leukocytosis Secondary: Chronic diastolic heart failure, hypertension, CAD, PVD, Parkinson 's disease, hyperlipidemia, Vitamin B12 deficiency Final diagnosis: Primary: UTI, resolving; Acute urinary retention with acute kidney injury ( post-renal); Leukoctytosis, resolved; Constipation, resolved.; BPH Secondary: Chronic diastolic heart failure, hypertension, CAD, PVD, Parkinson 's disease, hyperlipidemia, Vitamin B12 deficiency Procedures performed: None Hospital Course: The patient's hospital course went fairly well. The patient had a sawant catheter placed initially, but this was removed a couple hours after as the bladder was felt to be decompressed. The patient was placed on flomax 0.4 mg daily. The patient had not had a bowel movement in a couple days, so daily milk of magnesia was added which produced daily results. The patient was treated for his UTI with IV Cipro for 48 hours. Urine culture as well as blood cultures were negative. He was switched to oral Bactrim. His white blood cell count had normalized. He remained afebrile throughout his stay. After the sawant catheter had been removed, the patient was able to void however with some difficulty. Bladder scans were performed for post void residual checks several times per day with a range of 188-290 mL. He was straight catheterized at one point due to inability to void for 30 minutes and this produced 300 mL of returns. The patient developed lower abdominal pain and nausea the day prior to discharge. He had an abdominal x-ray that was negative. Sawant catheter was re-inserted at that time with resolution of symptoms. UA was repeated at that time which showed moderate blood, but no bacteria or protein. Spot urine sodium was 113 and spot urine creatinine was 79.23. The same day his BUN was 25, creatinine 1.75, and GFR 38. Fractional excretion of sodium based on these results was 1.8 % thus coinciding with post-renal picture. Terazosin 2 mg daily was added at that time. On day of discharge, consult was placed to urologist, Dr. Ewing. He agreed that patient could be discharged with the catheter, obtaining renal and bladder ultrasound as outpatient, discontinuing terazosin and maximizing flomax , and then be seen in his clinic this week for evaluation and intervention. Discharge labs included WBC 8.0 with neutrophils elevated at 78.3%, BUN 23, creatinine 1.72, GFR 38. Patient does not have a prior history of chronic kidney disease. March 2016 labs included BUN 30, creatinine 0.79, and GFR > 90. PSA at that time was 1.48. The patient was continued on lisinopril for hypertension as creatinine clearance was adequate. New medications on discharge: -Flomax 0.8 mg po daily -Miralax 17 gm po daily -Bactrim DS 1 tab po BID (total of 7 days) New changes to home medications on discharge: None Regular home medications on discharge: -Tylenol 650 mg po daily -Lisinopril 5 mg po daily -Sinemet 25-100 mg po TID -Aspirin 162 mg po daily -Vitamin D3 2000 units po daily -Vitmamin B12 1000 mcg IM monthly -Zocor 40 mg po daily -Nitroglycerin 0.4 mg sublingual PRN Condition, Treatment, and Final Disposition: The patient is in stable condition at the time of discharge. He will be discharged home today with his . He will continue with the catheter until evaluated by urology. He will have a renal and bladder ultrasound done tomorrow at the [facility]. He will see Dr. Ewing, urologist, this week. - General Info Date of Service: 01/06/17 Functional Status: Reports: Pain Controlled, Tolerating Diet, Ambulating, Urinating (sawant catheter). Denies: New Symptoms - Review of Systems General: Denies: Fever, Weakness HEENT: Denies: Headaches Pulmonary: Denies: Shortness of Breath Cardiovascular: Denies: Chest Pain, Edema Gastrointestinal: Denies: Abdominal Pain, Constipation, Decreased Appetite, Diarrhea, Nausea, Vomiting Genitourinary: Denies: Dysuria, Frequency, Urgency Neurological: Denies: Headache - Patient Data Vitals - Most Recent: Last Vital Signs Temp 98.5 F 01/06/17 06:51 Pulse 64 01/06/17 06:51 Resp 20 01/06/17 06:51 BP 159/65 H 01/06/17 08:05 Pulse Ox 90 L 01/06/17 06:51 Weight - Most Recent: 143 lb 7 oz I&O - Last 24 hours: Intake & Output 01/05/17 01/06/17 01/06/17 22:59 06:59 14:59 Intake Total 100 0 Output Total 500 150 Balance -400 -150 Lab Results - Last 24 hrs: Laboratory Results - last 24 hr 01/05/17 01/05/17 01/06/17 Range/Units 12:50 12:50 07:10 WBC 8.0 (5.0-10.0) 10^3/uL RBC 4.46 L (4.50-6.00) 10^6/uL Hgb 12.8 L (13.0-17.0) g/dL Hct 38.1 L (40.0-52.0) % MCV 85.5 (82.0-92.0) fL MCH 28.6 (27.0-31.0) pg MCHC 33.5 (32.0-36.0) g/dL RDW 12.6 (11.5-14.5) % Plt Count 239 (150-300) 10^3/uL MPV 9.5 (7.4-10.4) fL Neut % (Auto) 78.3 H (50.0-70.0) % Lymph % (Auto) 14.4 L (20.0-40.0) % [place] % (Auto) 6.3 (2.0-8.0) % Eos % (Auto) 0.8 L (1.0-3.0) % Baso % (Auto) 0.2 (0.0-1.0) % Neut # (Auto) 6.2 (2.5-7.0) 10^3/uL Lymph # (Auto) 1.2 (1.0-4.0) 10^3/uL [place] # (Auto) 0.5 (0.1-0.8) 10^3/uL Eos # (Auto) 0.1 (0.1-0.3) 10^3/uL Baso # (Auto) 0.0 (0.0-0.1) 10^3/uL Sodium (136-145) mmol/L Potassium (3.3-5.3) mmol/L Chloride (98-115) mmol/L Carbon Dioxide (21.0-32.0) mmol/L BUN (6-25) mg/dL Creatinine (0.51-1.17) mg/dL Est Cr Clr Drug Dosing mL/min Estimated GFR (MDRD) mL/min Glucose (70-110) mg/dL Calcium (8.7-10.3) mg/dL Total Bilirubin (0.2-1.0) mg/dL AST (15-37) U/L ALT (12-78) U/L Alkaline Phosphatase (46-116) IU/L Total Protein (6.4-8.2) g/dL Albumin (3.00-4.80) g/dL Specimen Type Urincath Urine Color Yellow (YELLOW) Urine Appearance Slightly cloudy H (CLEAR) Urine pH 7.0 (5.0-9.0) Ur Specific [place] 1.020 (1.005-1.030) Urine Protein Negative (NEGATIVE) mg/dL Urine Glucose (UA) Negative (NEGATIVE) mg/dL Urine Ketones Negative (NEGATIVE) mg/dL Urine Occult Blood Moderate H (NEGATIVE) Urine Nitrite Negative (NEGATIVE) Urine Bilirubin Negative (NEGATIVE) Urine Urobilinogen 0.2 (0.2-1.0) E.U./dL Ur Leukocyte Esterase Negative (NEGATIVE) Urine RBC 20-30 H /HPF Urine WBC 0-5 /HPF Ur Epithelial Cells Rare /LPF Urine Bacteria Few (NONE TO FEW) /HPF Ur Random Sodium 113.0 (40.0-220.0) mmol/L 01/06/17 Range/Units 07:10 WBC (5.0-10.0) 10^3/uL RBC (4.50-6.00) 10^6/uL Hgb (13.0-17.0) g/dL Hct (40.0-52.0) % MCV (82.0-92.0) fL MCH (27.0-31.0) pg MCHC (32.0-36.0) g/dL RDW (11.5-14.5) % Plt Count (150-300) 10^3/uL MPV (7.4-10.4) fL Neut % (Auto) (50.0-70.0) % Lymph % (Auto) (20.0-40.0) % [place] % (Auto) (2.0-8.0) % Eos % (Auto) (1.0-3.0) % Baso % (Auto) (0.0-1.0) % Neut # (Auto) (2.5-7.0) 10^3/uL Lymph # (Auto) (1.0-4.0) 10^3/uL [place] # (Auto) (0.1-0.8) 10^3/uL Eos # (Auto) (0.1-0.3) 10^3/uL Baso # (Auto) (0.0-0.1) 10^3/uL Sodium 138 (136-145) mmol/L Potassium 4.2 (3.3-5.3) mmol/L Chloride 103 (98-115) mmol/L Carbon Dioxide 25.3 (21.0-32.0) mmol/L BUN 23 (6-25) mg/dL Creatinine 1.72 H (0.51-1.17) mg/dL Est Cr Clr Drug Dosing 31.00 mL/min Estimated GFR (MDRD) 38 mL/min Glucose 113 H (70-110) mg/dL Calcium 8.6 L (8.7-10.3) mg/dL Total Bilirubin 0.4 (0.2-1.0) mg/dL AST 12 L (15-37) U/L ALT 9 L (12-78) U/L Alkaline Phosphatase 62 (46-116) IU/L Total Protein 6.7 (6.4-8.2) g/dL Albumin 2.99 L (3.00-4.80) g/dL Specimen Type Urine Color (YELLOW) Urine Appearance (CLEAR) Urine pH (5.0-9.0) Ur Specific [place] (1.005-1.030) Urine Protein (NEGATIVE) mg/dL Urine Glucose (UA) (NEGATIVE) mg/dL Urine Ketones (NEGATIVE) mg/dL Urine Occult Blood (NEGATIVE) Urine Nitrite (NEGATIVE) Urine Bilirubin (NEGATIVE) Urine Urobilinogen (0.2-1.0) E.U./dL Ur Leukocyte Esterase (NEGATIVE) Urine RBC /HPF Urine WBC /HPF Ur Epithelial Cells /LPF Urine Bacteria (NONE TO FEW) /HPF Ur Random Sodium (40.0-220.0) mmol/L ARMIDA Results - Last 24 hrs: Microbiology 01/02/17 14:00 Aerobic Blood Culture - Preliminary Blood - Venous - Lab Draw NO GROWTH AFTER 3 DAYS Anaerobic Blood Culture - Preliminary NO GROWTH AFTER 3 DAYS 01/02/17 13:45 Aerobic Blood Culture - Preliminary Blood - Venous NO GROWTH AFTER 3 DAYS Anaerobic Blood Culture - Preliminary NO GROWTH AFTER 3 DAYS Med Orders - Current: Current Medications Acetaminophen (Tylenol) 650 mg PO DAILY [facility] Last Admin: 01/06/17 08:06 Dose: 650 mg Aspirin (Aspirin) 162 mg PO BEDTIME [facility] Last Admin: 01/05/17 20:45 Dose: 162 mg Carbidopa/Levodopa (Sinemet 25-100 Mg) 1 tab PO TID [facility] Last Admin: 01/06/17 08:06 Dose: 1 tab Cholecalciferol (Vitamin D3) 2,000 units PO DAILY [facility] Last Admin: 01/06/17 08:06 Dose: 2,000 units Enoxaparin Sodium (Lovenox) 30 mg SUBCUT DAILY [facility] Last Admin: 01/06/17 08:09 Dose: 30 mg Lisinopril (Prinivil) 5 mg PO DAILY [facility] Last Admin: 01/06/17 08:05 Dose: 5 mg Magnesium Hydroxide (Milk Of Magnesia) 30 ml PO DAILY [facility] Last Admin: 01/06/17 08:05 Dose: 30 ml Melatonin (Melatonin) 3 mg PO BEDTIME [facility] Last Admin: 01/05/17 20:46 Dose: 3 mg Nitroglycerin (Nitrostat) 0.4 mg SL Q5M PRN PRN Reason: Chest Pain Sodium Chloride (Syrex Flush) 5 ml FLUSH Q8HR PRN PRN Reason: Keep Vein Open Tamsulosin HCl (Flomax) 0.8 mg PO PCBREAKFAST [facility] Trimethoprim/Sulfamethoxazole (Septra Ds) 1 tab PO BID [facility] Stop: 01/12/17 21:00 Last Admin: 01/06/17 08:09 Dose: 1 tab Discontinued Medications Ciprofloxacin (Ciprofloxacin Hcl) 500 mg PO ONETIME ONE Stop: 01/02/17 09:18 Last Admin: 01/02/17 09:35 Dose: 500 mg Sodium Chloride (Normal Saline) 1,000 mls @ 999 mls/hr IV .BOLUS ONE Stop: 01/02/17 10:17 Last Admin: 01/02/17 09:26 Dose: 999 mls/hr Sodium Chloride (Normal Saline) 1,000 mls @ 60 mls/hr IV ASDIRECTED [facility] Stop: 01/02/17 23:00 Last Admin: 01/02/17 14:46 Dose: 60 mls/hr Ciprofloxacin/Dextrose 400 mg/ (Premix) 200 mls @ 200 mls/hr IV Q12H [facility] Last Admin: 01/05/17 08:58 Dose: 200 mls/hr Sodium Chloride (Normal Saline) 100 mls @ 20 mls/hr IV DAILY@0900 [facility] Last Admin: 01/05/17 08:58 Dose: 20 mls/hr Tamsulosin HCl (Flomax) 0.4 mg PO PCBREAKFAST [facility] Tamsulosin HCl (Flomax) 0.4 mg PO PCBREAKFAST [facility] Last Admin: 01/06/17 08:05 Dose: 0.4 mg Tamsulosin HCl (Flomax) 0.4 mg PO ONETIME ONE Stop: 01/06/17 09:30 Terazosin HCl (Hytrin) 2 mg PO DAILY@2100 [facility] Last Admin: 01/05/17 20:45 Dose: 2 mg - Exam Quality Assessment: Reports: Urine Catheter (sawant-dark yellow returns), DVT Prophylaxis (lovenox). Denies: Supplemental Oxygen General: Reports: Alert, Oriented, Cooperative, No Acute Distress Lungs: Reports: Clear to Auscultation, Normal Respiratory Effort Cardiovascular: Reports: Regular Rate, Regular Rhythm, No Murmurs GI/Abdominal Exam: Normal Bowel Sounds, Soft, Non-Tender, No Distention Extremities: No Pedal Edema Skin: Reports: Warm, Dry Neurological: Reports: Normal Speech Psy/Mental Status: Reports: Alert, Normal Affect, Normal Mood *Q Meaningful Use (DIS) - VTE *Q VTE Criteria *Q: - Stroke *Q Stroke Criteria *Q: - AMI *Q AMI Criteria *Q:
[2017-01-07] MEDS ORDERED: Tamsulosin 0.4 MG Cap.ER PO SCH (09:00)
== END 2017-01-06 10:47 | disposition home or self-care (01) | DRG 690 ==
LOC: KA.ED 07:20 → KA.MS 10:31
PROVIDERS: ADMIT Physician Assistant Surgical; ATTEND Family Medicine
DX: N39.0 Urinary tract infection, site not specified (principal); R50.9 Fever, unspecified; I50.32 Chronic diastolic (congestive) heart failure; N17.9 Acute kidney failure, unspecified; R33.9 Retention of urine, unspecified; Z79.899 Other long term (current) drug therapy; D72.829 Elevated white blood cell count, unspecified; I10 Essential (primary) hypertension; G20 Parkinson's disease; I73.9 Peripheral vascular disease, unspecified; E53.8 Deficiency of other specified B group vitamins; K59.00 Constipation, unspecified; N40.0 Benign prostatic hyperplasia without lower urinary tract symptoms; Z88.0 Allergy status to penicillin; Z88.8 Allergy status to other drugs, medicaments and biological substances; Z87.891 Personal history of nicotine dependence
CPT/HCPCS: 36415; 51798; 80048; 81001; 85025; 87086; 96360; 99284 ×2; A9270; J7030; 74020; 80053; 82570; 84300; 87040; J0744; J1650; J7050

== ENCOUNTER 2017-03-13 19:08 | Emergency (ER) | payer MEDICARE, OTHER ==
--- NOTE | 2017-03-13 19:45 | EDM.PDOC ---
ED HPI GENERAL MEDICAL PROBLEM - General Chief Complaint: Genitourinary Problem Stated Complaint: CATHETER NOT WORKING Time Seen by Provider: 03/13/17 19:33 Source of Information: Reports: Patient, Family History Limitations: Reports: No Limitations - History of Present Illness INITIAL COMMENTS - FREE TEXT/NARRATIVE: 81 YO WM presents to ER complaining of possible sawant catheter malfunction. Pt had his sawant catheter changed twice this week and came to ER last night complaining of urinary urgency and mild dysuria. Pt was found to have a urinary tract infection and started on septra DS. Pt reports his symptoms of urinary urgency and frequency have improved but tonight he noticed only a small amount of urine in his sawant catheter bag prompting ER evaluation. Pt denies any abdominal pain, fever/chills or back pain. Onset: Today Onset Date: 03/13/17 Duration: Day(s): (3) Severity: Mild Improves with: Reports: None Worsens with: Reports: None Associated Symptoms: Denies: Fever/Chills, Malaise, Nausea/Vomiting, Rash - Related Data Allergies Allergy/AdvReac Type Severity Reaction Status Date / Time ceftriaxone sodium Allergy Shortness Verified 03/12/17 19:13 [From Rocephin] of Breath Penicillins Allergy Cannot Verified 03/12/17 19:13 Remember Home Meds: Home Meds Acetaminophen [Tylenol] 650 mg PO DAILY 11/15/15 [History] Aspirin 162 mg PO BEDTIME 11/15/15 [History] Carbidopa/Levodopa [Carbidopa-Levodopa 25-100 Tab] 25 - 100 mg PO TID 11/15/15 [ History] Cholecalciferol (Vitamin D3) [D3-2000] 2,000 unit PO DAILY 11/15/15 [History] Cyanocobalamin (Vitamin B-12) [Cyanocobalamin Injection] 1,000 mcg IM Q30D 11/14 [History] Nitroglycerin [Nitrostat] 0.4 mg SL Q5M PRN 11/15/15 [History] Simvastatin [Zocor] 40 mg PO BEDTIME 11/15/15 [History] Lisinopril 5 mg PO DAILY 01/02/17 [History] Polyethylene Glycol 3350 [Miralax] 17 gm PO DAILY #30 powd.pack 01/06/17 [Rx] Sulfamethoxazole/Trimethoprim [IJD: Sulfamethoxazole/Trimethoprim DS] 1 tab PO BID #11 tablet 01/06/17 [Rx] Tamsulosin [Flomax] 0.8 mg PO PCBREAKFAST #30 cap.er 01/06/17 [Rx] Sulfamethoxazole/Trimethoprim [Septra DS] 1 tab PO BID #18 tablet 03/12/17 [Rx] Past Medical History HEENT History: Reports: Hard of Hearing Cardiovascular History: Reports: High Cholesterol, Hypertension Respiratory History: Reports: COPD Genitourinary History: Reports: UTI, Recurrent Musculoskeletal History: Reports: Arthritis, Other (See Below) Other Musculoskeletal History: parkinson's disease Neurological History: Reports: Parkinson's Hematologic History: Reports: B12 Deficiency - Past Surgical History Male Surgical History: Reports: None Neurological Surgical History: Reports: None Musculoskeletal Surgical History: Reports: None Social & Family History - Family History Family Medical History: Noncontributory HEENT: Reports: None Cardiac: Reports: None, [place] Respiratory: Reports: None GI: Reports: None : Reports: None OBGYN: Reports: None Musculoskeletal: Reports: None Neurological: Reports: None Psychiatric: Reports: None Endocrine/Metabolic: Reports: None Hematologic: Reports: None Immunologic: Reports: None Dermatologic: Reports: None Oncologic: Reports: Other (See Below) - Tobacco Use Smoking Status *Q: Former Smoker Years of Tobacco use: 60 Packs/Tins Daily: 1 Used Tobacco, but Quit: Yes Month Tobacco Last Used: 2012 Second Hand Smoke Exposure: Yes - Caffeine Use Caffeine Use: Reports: Coffee - Recreational Drug Use Recreational Drug Use: No ED ROS GENERAL - Review of Systems Review Of Systems: See Below Constitutional: Reports: No Symptoms HEENT: Reports: No Symptoms Respiratory: Reports: No Symptoms Cardiovascular: Reports: No Symptoms Endocrine: Reports: No Symptoms GI/Abdominal: Reports: No Symptoms : Reports: Frequency, Urgency Musculoskeletal: Reports: No Symptoms Skin: Reports: No Symptoms Neurological: Reports: No Symptoms Psychiatric: Reports: No Symptoms Hematologic/Lymphatic: Reports: No Symptoms Immunologic: Reports: No Symptoms ED EXAM, RENAL/ - Physical Exam Exam: See Below Exam Limited By: No Limitations General Appearance: Alert, WD/WN, No Apparent Distress Head: Atraumatic, Normocephalic Neck: Normal Inspection, Supple, Non-Tender, Full Range of Motion Respiratory/Chest: No Respiratory Distress, Lungs Clear, Normal Breath Sounds, No Accessory Muscle Use, Chest Non-Tender Cardiovascular: Normal Peripheral Pulses, Regular Rate, Rhythm, No Edema, No Gallop, No JVD, No Murmur, No Rub GI/Abdominal: Normal Bowel Sounds, Soft, Non-Tender, No Organomegaly, No Distention, No Abnormal Bruit, No Mass Back Exam: Normal Inspection, Full Range of Motion, NT Extremities: Normal Inspection, Normal Range of Motion, Non-Tender, Normal Capillary Refill, No Pedal Edema Neurological: Alert, Oriented, CN II-XII Intact, Normal Cognition, Normal Gait, Normal Reflexes, No Motor/Sensory Deficits Psychiatric: Normal Affect, Normal Mood Skin Exam: Warm, Dry, Intact, Normal Color, No Rash Lymphatic: No Adenopathy Departure - Departure Time of Disposition: 20:03 Disposition: Home, Self-Care 01 Condition: Good Clinical Impression: UTI, Urinary tract infectious disease Malfunction of Sawant catheter Qualifiers: Encounter type: subsequent encounter Qualified Code(s): T83.011D - Breakdown ( mechanical) of indwelling urethral catheter, subsequent encounter - Discharge Information Instructions: Sawant Catheter Care, Adult, Urinary Tract Infection, Adult, Easy- to-Read Referrals: Estevan Vance [employer] [Primary Care Provider] - Forms: ED Department Discharge - Assessment/Plan Assessment:: 1. urinary tract infection 2. sawant catheter malfunction Plan: 1. discharge home 2. continue septra DS bid x 10 days 3. follow up at the clinic for further evaluation and treatment 4. return to ER for worsening symptoms
[2017-03-13 22:22] VITALS: BP 141/52
== END 2017-03-13 20:35 | disposition home or self-care (01) ==
LOC: KA.ED 19:08
DX: T83.011D Breakdown (mechanical) of indwelling urethral catheter, subsequent encounter (principal); N39.0 Urinary tract infection, site not specified; I10 Essential (primary) hypertension; E78.00 Pure hypercholesterolemia, unspecified; Z87.891 Personal history of nicotine dependence; Z79.82 Long term (current) use of aspirin; Z79.899 Other long term (current) drug therapy; Z88.0 Allergy status to penicillin; Z88.1 Allergy status to other antibiotic agents
CPT/HCPCS: 51701; 51702; 99283

== ENCOUNTER 2017-03-14 14:54 | Observation (INO) | payer MEDICARE, OTHER ==
[2017-03-14] MEDS ORDERED: Sodium Chloride 0.9% 5 ML Syringe FLUSH PRN (15:42)
[2017-03-14] MEDS: Sodium Chloride 0.9% 1,000 ML IV SCH (16:35)
[2017-03-14] MEDS: Ciprofloxacin 250 MG Tab PO SCH ×2 (16:35→21:11)
[2017-03-14] MEDS ORDERED: Nitroglycerin 0.4 MG Tab.SL SL PRN (19:09)
[2017-03-14] MEDS: Aspirin 81 MG Tab.Chew PO SCH (21:11)
[2017-03-14] MEDS: Carbidopa/Levodopa 25-100 MG Tab PO SCH (21:11)
[2017-03-14] MEDS: Simvastatin 20 MG Tab PO SCH (21:11)
[2017-03-14] MEDS: Tamsulosin 0.4 MG Cap.ER PO SCH (21:11)
[2017-03-14] MEDS: Melatonin 3 MG Tab PO PRN (23:16)
[2017-03-15] MEDS: Sodium Chloride 0.9% 1,000 ML IV SCH ×3 (02:37→22:25)
[2017-03-15] MEDS: Melatonin 3 MG Tab PO PRN (02:39)
[2017-03-15] MEDS: Acetaminophen 325 MG Tab PO PRN ×2 (04:34→19:43)
[2017-03-15] MEDS: Ciprofloxacin 250 MG Tab PO SCH ×3 (07:24→21:18)
[2017-03-15] MEDS: Carbidopa/Levodopa 25-100 MG Tab PO SCH ×3 (08:23→18:10)
[2017-03-15] MEDS: Acetaminophen 325 MG Tab PO SCH (08:23)
[2017-03-15] MEDS: Lisinopril 5 MG Tab PO SCH (08:23)
[2017-03-15] MEDS: Cholecalciferol (Vitamin D3) 1,000 Unit Tab PO SCH (08:23)
--- NOTE | 2017-03-15 12:16 | PCM.PN ---
- General Info Date of Service: 03/15/17 Admission Dx/Problem (Free Text): 81 yo old male was seen in the clinic by Dr Rodriguez 03/14/17 for decreased urinary output. Pt has an indwelling urinary Sawant catheter due to urinary retention and BPH. He is awaiting cardiac clearance for urological consult and possible TURP. He was seen previously on 03/11/17 at which time a new Sawant was placed due to possible malfunction. Pt was seen in the ERc twice between 03/11/17 and 03/14/17 with complaints of possible sawant cath malfunction and decreased urinary output. He does admit to poor oral intake. On 03/12/17 he was started on Bactrim for UTI. Pt was admitted to the hospital 03/14/17 with decreased urinary output, liely related to decreased fluid intake. He has been on strict I&O, oral fluids are being pushed and he is on NS at 100 ml/hr for fluid replacement. He has BPH and awaiting transurethral laser prostate reduction. - Review of Systems General: Reports: No Symptoms HEENT: Reports: No Symptoms Pulmonary: Reports: No Symptoms Cardiovascular: Reports: No Symptoms Gastrointestinal: Reports: Constipation Genitourinary: Reports: Other (complaint of pain around sawant catheter) Musculoskeletal: Reports: No Symptoms Skin: Reports: No Symptoms Psychiatric: Reports: Other (Poor memory. Question dementia) - Patient Data Vitals - Most Recent: Last Vital Signs Temp 98.8 F 03/15/17 06:00 Pulse 66 03/15/17 06:00 Resp 20 03/15/17 06:00 BP 135/63 03/15/17 08:23 Pulse Ox 94 L 03/15/17 06:00 Weight - Most Recent: 142 lb 12.8 oz I&O - Last 24 Hours: Intake & Output 03/14/17 03/15/17 03/15/17 22:59 06:59 14:59 Intake Total 1110 925 Output Total 200 225 Balance 910 700 Lab Results Last 24 Hours: Laboratory Results - last 24 hr 03/15/17 Range/Units 07:10 Sodium 135 L (136-145) mmol/L Potassium 4.1 (3.3-5.3) mmol/L Chloride 105 (98-115) mmol/L Carbon Dioxide 22.4 (21.0-32.0) mmol/L BUN 24 (6-25) mg/dL Creatinine 1.50 H (0.51-1.17) mg/dL Est Cr Clr Drug Dosing 32.34 mL/min Estimated GFR (MDRD) 45 mL/min Glucose 94 (70-110) mg/dL Calcium 8.3 L (8.7-10.3) mg/dL Total Bilirubin 0.8 (0.2-1.0) mg/dL AST 13 L (15-37) U/L ALT 8 L (12-78) U/L Alkaline Phosphatase 76 (46-116) IU/L Total Protein 6.2 L (6.4-8.2) g/dL Albumin 2.85 L (3.00-4.80) g/dL Med Orders - Current: Current Medications Acetaminophen (Tylenol) 325 mg PO DAILY [facility] Last Admin: 03/15/17 08:23 Dose: 325 mg Acetaminophen (Tylenol) 325 mg PO Q4H PRN PRN Reason: Pain Last Admin: 03/15/17 04:34 Dose: 325 mg Aspirin (Aspirin) 81 mg PO BEDTIME [facility] Last Admin: 03/14/17 21:11 Dose: 81 mg Carbidopa/Levodopa (Sinemet 25-100 Mg) 1 tab PO TIDMEALS [facility] Last Admin: 03/15/17 08:23 Dose: 1 tab Cholecalciferol (Vitamin D3) 2,000 units PO DAILY [facility] Last Admin: 03/15/17 08:23 Dose: 2,000 units Ciprofloxacin (Ciprofloxacin Hcl) 250 mg PO BID [facility] Last Admin: 03/15/17 08:23 Dose: 250 mg Sodium Chloride (Normal Saline) 1,000 mls @ 100 mls/hr IV ASDIRECTED [facility] Last Admin: 03/15/17 02:37 Dose: 100 mls/hr Lisinopril (Prinivil) 5 mg PO DAILY [facility] Last Admin: 03/15/17 08:23 Dose: 5 mg Melatonin (Melatonin) 3 mg PO BEDTIME PRN PRN Reason: Insomnia Last Admin: 03/15/17 02:39 Dose: 3 mg Nitroglycerin (Nitrostat) 0.4 mg SL Q5M PRN PRN Reason: Chest Pain Simvastatin (Zocor) 40 mg PO BEDTIME [facility] Last Admin: 03/14/17 21:11 Dose: 40 mg Sodium Chloride (Syrex Flush) 5 ml FLUSH Q8HR PRN PRN Reason: Keep Vein Open Tamsulosin HCl (Flomax) 0.4 mg PO BEDTIME [facility] Last Admin: 03/14/17 21:11 Dose: 0.4 mg - Exam General: Alert, No Acute Distress, Other (pleasant, cooperative.) Lungs: Clear to Auscultation, Normal Respiratory Effort Cardiovascular: Regular Rate, Regular Rhythm GI/Abdominal Exam: Soft, Non-Tender (Male) Exam: Other (sawant catheter in place and draining clear pennie urine. Edema of penis and scrotum with erythema. Creamy yellow discharge at sawant site. Tender with exam.) Extremities: No Pedal Edema Skin: Other (See ) Neurological: No New Focal Deficit Psy/Mental Status: Alert - Problem List Review Problem List Initiated/Reviewed/Updated: Yes - My Orders Last 24 Hours: My Active Orders 03/14/17 19:09 Nitroglycerin [Nitrostat] 0.4 mg SL Q5M PRN 03/14/17 19:15 Carbidopa/Levodopa [Sinemet 25-100 mg] 1 tab PO TIDMEALS 03/14/17 21:00 Aspirin 81 mg PO BEDTIME Simvastatin [Zocor] 40 mg PO BEDTIME Tamsulosin [Flomax] 0.4 mg PO BEDTIME 03/14/17 22:51 Melatonin 3 mg PO BEDTIME PRN 03/15/17 04:13 Acetaminophen [Tylenol] 325 mg PO Q4H PRN 03/15/17 09:00 Acetaminophen [Tylenol] 325 mg PO DAILY Cholecalciferol (Vitamin D3) [Vitamin D3] 2,000 units PO DAILY Lisinopril [Prinivil] 5 mg PO DAILY - Assessment Assessment:: Brief history: 81 yo old male was seen in the clinic by Dr Rodriguez 03/14/17 for decreased urinary output. Pt has an indwelling urinary Sawant catheter due to urinary retention and BPH. He is awaiting cardiac clearance for urological consult and possible TURP. He was seen previously on 03/11/17 at which time a new Sawant was placed due to possible malfunction. Pt was seen in the ERc twice between 03/11/17 and 03/14/17 with complaints of possible sawant cath malfunction and decreased urinary output. He does admit to poor oral intake. On 03/12/17 he was started on Bactrim for UTI. Pt was admitted to the hospital 03/14/17 with decreased urinary output, likely related to decreased fluid intake. He has been on strict I&O, oral fluids are being pushed and he is on NS at 100 ml/hr for fluid replacement. IMPRESSION/PLAN: 1. UTI: continue Cipro. 2. Decreased urinary output with dehydration. Creatinine is near normal at 1.50, BUN 24, GFR is 45. Last GFR in the clinic was 66 last month. Will continue IV fluids and recheck BMP tomorrow. I&O showing intake greater than output. 3. History of Diastolic heart failure: Lung sounds are clear. No pedal edema. We will continue to monitor this closely. 4. Insomnia: Did not have any improvement with melatonin last night. Will give remeron 15 mg q hs prn. 5. BPH: continue flomax. awaiting transurethral laser prostate reduction. 6. Parkinson's : Continue same sinamet. - Plan Plan:: .
[2017-03-15] MEDS ORDERED: Magnesium Hydroxide 400 MG/5 ML Susp 30 ML Cup PO PRN (12:21)
[2017-03-15] MEDS: Nystatin Topical Powder 15 GM Bottle TOP SCH ×2 (14:14→21:32)
[2017-03-15] MEDS ORDERED: Mirtazapine 15 MG Tab PO PRN (21:16)
[2017-03-15] MEDS: Aspirin 81 MG Tab.Chew PO SCH (21:18)
[2017-03-15] MEDS: Simvastatin 20 MG Tab PO SCH (21:18)
[2017-03-15] MEDS: Tamsulosin 0.4 MG Cap.ER PO SCH (21:18)
[2017-03-16 07:07] VITALS: BP 127/65
[2017-03-16] MEDS: Lisinopril 5 MG Tab PO SCH (08:12)
[2017-03-16] MEDS: Ciprofloxacin 250 MG Tab PO SCH (08:12)
[2017-03-16] MEDS: Carbidopa/Levodopa 25-100 MG Tab PO SCH ×2 (08:12→12:08)
[2017-03-16] MEDS: Cholecalciferol (Vitamin D3) 1,000 Unit Tab PO SCH (08:12)
[2017-03-16] MEDS: Acetaminophen 325 MG Tab PO SCH (08:12)
[2017-03-16] MEDS: Nystatin Topical Powder 15 GM Bottle TOP SCH (08:20)
--- NOTE | 2017-03-16 12:45 | PCM.DCSUM1 ---
Discharge Summary - Discharge Data Discharge Date: 03/16/17 Discharge Disposition: Home, Self-Care 01 Condition: Fair - Discharge Diagnosis/Problem(s) (1) Urine retention SNOMED Code(s): 499412786 ICD Code: R33.9 - RETENTION OF URINE, UNSPECIFIED Status: Chronic Current Visit: No (2) Moderate dehydration SNOMED Code(s): 5046829467322 ICD Code: E86.0 - DEHYDRATION Status: Acute Current Visit: Yes (3) Recurrent dehydration SNOMED Code(s): 56411773 ICD Code: E86.0 - DEHYDRATION Status: Acute Current Visit: Yes - Patient Instructions Diet: Drink 8-10+ Glasses/Day Activity: As Tolerated Driving: Do Not Drive Showering/Bathing: May Shower Notify Provider of: Fever, Swelling and Redness, Drainage, Nausea and/or Vomiting - Discharge Plan Home Medications: Home Meds Acetaminophen [Tylenol] 325 mg PO DAILY 11/15/15 [History] Aspirin 81 mg PO BEDTIME 11/15/15 [History] Carbidopa/Levodopa [Carbidopa-Levodopa 25-100 Tab] 25 - 100 mg PO TIDMEALS 11/14 [History] Cholecalciferol (Vitamin D3) [D3-2000] 2,000 unit PO DAILY 11/15/15 [History] Nitroglycerin [Nitrostat] 0.4 mg SL Q5M PRN 11/15/15 [History] Simvastatin [Zocor] 40 mg PO BEDTIME 11/15/15 [History] Lisinopril 5 mg PO DAILY 01/02/17 [History] Tamsulosin [Flomax] 0.4 mg PO BEDTIME 03/14/17 [History] Ciprofloxacin [Ciprofloxacin HCl] 250 mg PO BID tablet 03/16/17 [Rx] Nystatin [Nystop] 1 applic TOP TID bottle 03/16/17 [Rx] Referrals: Niki Jane PA-C [[employer] [employer]] - - Discharge Summary/Plan Comment Discharge Summary/Plan Comment: Brief history/ hospital course: 81 yo old male was admitted directly from the clinic by Dr Rodriguez 03/14/17 for decreased urinary output. Pt has an indwelling urinary Sawant catheter due to urinary retention and BPH. He is awaiting cardiac clearance for urological consult and possible TURP. He was seen previously on 03/11/17 at which time a new Sawant was placed due to possible malfunction. Pt was seen in the ERc twice between 03/11/17 and 03/14/17 with complaints of possible sawant cath malfunction and decreased urinary output. He admits to poor oral intake. On 03/12/17 he was started on Bactrim for UTI. 1. Decreased urinary output due to poor oral intake: He had IV fluids at 100 cc/ hr and oral fluids were pushed. His Intake continued to be greater than output until last night at which time he had diuresis of 1300 cc clear pennie urine per Sawant. BMP is showing CKD stage 3 with GFR 47. BUN was 21 and creatinine 1.44 on discharge. He is to take at least 2 quarts of water daily. states she will help with that. Pt does have mild dementia. 2. UTI treated with cipro. Will continue Cipro 250 mg bid x 3 more days. 3. History of diastolic heart failure: This was monitored closely. Lungs were clear on discharge, no pedal edema during stay. 4. Insomnia: he slept well with remeron. Both pt and think he will not be needing this at home. 5. BPH: continue flomax and sawant cath. Awaiting TURP. 6. Parkinson's: continue sinamet. Pt is to Follow up with PCP, Niki Jane in 1 week. - Patient Data Vitals - Most Recent: Last Vital Signs Temp 96.1 F 03/16/17 09:21 Pulse 65 03/16/17 07:00 Resp 28 H 03/16/17 07:00 BP 127/65 03/16/17 08:12 Pulse Ox 93 L 03/16/17 07:00 Weight - Most Recent: 142 lb 12.8 oz I&O - Last 24 hours: Intake & Output 03/15/17 03/16/17 03/16/17 22:59 06:59 14:59 Intake Total 1145 915 142 Output Total 400 1300 Balance 745 -385 142 Lab Results - Last 24 hrs: Laboratory Results - last 24 hr 03/16/17 03/16/17 Range/Units 07:35 07:35 WBC 8.8 (5.0-10.0) 10^3/uL RBC 4.28 L (4.50-6.00) 10^6/uL Hgb 11.8 L (13.0-17.0) g/dL Hct 36.9 L (40.0-52.0) % MCV 86.3 (82.0-92.0) fL MCH 27.6 (27.0-31.0) pg MCHC 32.0 (32.0-36.0) g/dL RDW 13.4 (11.5-14.5) % Plt Count 229 (150-300) 10^3/uL MPV 9.8 (7.4-10.4) fL Neut % (Auto) 80.6 H (50.0-70.0) % Lymph % (Auto) 11.2 L (20.0-40.0) % Wagoner % (Auto) 6.7 (2.0-8.0) % Eos % (Auto) 0.6 L (1.0-3.0) % Baso % (Auto) 0.9 (0.0-1.0) % Neut # (Auto) 7.0 (2.5-7.0) 10^3/uL Lymph # (Auto) 1.0 (1.0-4.0) 10^3/uL Wagoner # (Auto) 0.6 (0.1-0.8) 10^3/uL Eos # (Auto) 0.1 (0.1-0.3) 10^3/uL Baso # (Auto) 0.1 (0.0-0.1) 10^3/uL Sodium 137 (136-145) mmol/L Potassium 4.1 (3.3-5.3) mmol/L Chloride 107 (98-115) mmol/L Carbon Dioxide 21.3 (21.0-32.0) mmol/L BUN 21 (6-25) mg/dL Creatinine 1.44 H (0.51-1.17) mg/dL Est Cr Clr Drug Dosing 33.69 mL/min Estimated GFR (MDRD) 47 mL/min Glucose 86 (70-110) mg/dL Calcium 8.4 L (8.7-10.3) mg/dL Med Orders - Current: Current Medications Acetaminophen (Tylenol) 325 mg PO DAILY [facility] Last Admin: 03/16/17 08:12 Dose: 325 mg Acetaminophen (Tylenol) 325 mg PO Q4H PRN PRN Reason: Pain Last Admin: 03/15/17 19:43 Dose: 325 mg Aspirin (Aspirin) 81 mg PO BEDTIME [facility] Last Admin: 03/15/17 21:18 Dose: 81 mg Carbidopa/Levodopa (Sinemet 25-100 Mg) 1 tab PO TIDMEALS [facility] Last Admin: 03/16/17 12:08 Dose: 1 tab Cholecalciferol (Vitamin D3) 2,000 units PO DAILY [facility] Last Admin: 03/16/17 08:12 Dose: 2,000 units Ciprofloxacin (Ciprofloxacin Hcl) 250 mg PO BID [facility] Last Admin: 03/16/17 08:12 Dose: 250 mg Sodium Chloride (Normal Saline) 1,000 mls @ 100 mls/hr IV ASDIRECTED [facility] Last Admin: 03/15/17 22:25 Dose: 100 mls/hr Lisinopril (Prinivil) 5 mg PO DAILY [facility] Last Admin: 03/16/17 08:12 Dose: 5 mg Magnesium Hydroxide (Milk Of Magnesia) 30 ml PO BEDTIME PRN PRN Reason: Constipation Last Admin: 03/16/17 08:11 Dose: 30 ml Melatonin (Melatonin) 3 mg PO BEDTIME PRN PRN Reason: Insomnia Last Admin: 03/15/17 02:39 Dose: 3 mg Mirtazapine (Remeron) 15 mg PO BEDTIME PRN PRN Reason: Insomnia Last Admin: 03/15/17 21:18 Dose: 15 mg Nitroglycerin (Nitrostat) 0.4 mg SL Q5M PRN PRN Reason: Chest Pain Nystatin (Nystop) 0 gm TOP TID [facility] Last Admin: 03/16/17 08:20 Dose: 1 applic Simvastatin (Zocor) 40 mg PO BEDTIME [facility] Last Admin: 03/15/17 21:18 Dose: 40 mg Sodium Chloride (Syrex Flush) 5 ml FLUSH Q8HR PRN PRN Reason: Keep Vein Open Tamsulosin HCl (Flomax) 0.4 mg PO BEDTIME [facility] Last Admin: 03/15/17 21:18 Dose: 0.4 mg *Q Meaningful Use (DIS) - VTE *Q VTE Criteria *Q: - Stroke *Q Stroke Criteria *Q: - AMI *Q AMI Criteria *Q:
== END 2017-03-16 12:21 | disposition home or self-care (01) ==
LOC: KA.MS 14:54
PROVIDERS: ADMIT Family Medicine; ATTEND Nurse Practitioner Family
DX: R34 Anuria and oliguria (principal); E86.0 Dehydration; G20 Parkinson's disease; G47.00 Insomnia, unspecified; N39.0 Urinary tract infection, site not specified; N40.0 Benign prostatic hyperplasia without lower urinary tract symptoms; N48.89 Other specified disorders of penis; N50.89 Other specified disorders of the male genital organs; I50.30 Unspecified diastolic (congestive) heart failure; Z79.82 Long term (current) use of aspirin; Z79.899 Other long term (current) drug therapy; Z96.0 Presence of urogenital implants
CPT/HCPCS: 36415; 80048; 80053; 85025; A9270; J7030; 96360; 96361; G0378

== ENCOUNTER 2017-07-09 07:56 | Day surgery (SDC) | payer MEDICARE, OTHER ==
[2017-07-09] MEDS ORDERED: Ketamine 500 mg/10 ML MDV IV ONE (07:57)
[2017-07-09] MEDS ORDERED: fentaNYL 100 MCG/2 ML SDV IV ONE (07:57)
[2017-07-09] MEDS ORDERED: Midazolam 1 MG/ML 2 ML SDV IV ONE (07:57)
[2017-07-09] MEDS ORDERED: Propofol 200 MG/20 ML SDV IV ONE (07:57)
[2017-07-09] MEDS ORDERED: Lactated Ringers 1,000 ML IV SCH (08:00)
[2017-07-09] MEDS ORDERED: Sodium Chloride 0.9% 5 ML Syringe FLUSH PRN (08:00)
[2017-07-09] MEDS ORDERED: Midazolam 1 MG/ML 2 ML SDV ONE (08:34)
[2017-07-09] MEDS ORDERED: fentaNYL 100 MCG/2 ML SDV ONE (08:35)
[2017-07-09] MEDS ORDERED: Propofol 200 MG/20 ML SDV ONE ×2 (08:36→09:47)
[2017-07-09] MEDS ORDERED: Lidocaine 1% with EPINEPHrine 1:100,000 20 ML MDV ONE (08:39)
[2017-07-09] MEDS ORDERED: Bupivacaine 0.5% 30 ML SDV ONE (08:39)
[2017-07-09] MEDS ORDERED: Bupivacaine 0.5%/EPINEPHrine 1:200,000 30 ML SDV ONE (09:21)
[2017-07-09] MEDS ORDERED: Ketamine 500 mg/10 ML MDV ONE (09:22)
[2017-07-09] MEDS ORDERED: Bupivacaine 0.5%/EPINEPHrine 1:200,000 30 ML SDV INFILT ONE (09:31)
[2017-07-09] MEDS ORDERED: Lidocaine 2% Jelly 5 ML Tube ONE (09:40)
--- NOTE | 2017-07-09 10:28 | PCM.OPNOTE ---
- General Post-Op/Procedure Note Date of Surgery/Procedure: 07/09/17 Operative Procedure(s): Insertion of suprapubic catheter via trocar. Cystoscopy. Findings: This patient has had a long-standing problem with bladder atony. He has had a TURP. Unfortunately he was still retaining urine. Therefore decision has been made to place a permanent suprapubic catheter. Anesthesia Technique: MAC Primary Surgeon: Jaskaran Childs Condition: Good Free Text/Narrative:: Preoperative diagnosis: Chronic urinary retention. Postoperative diagnosis: As above Procedure performed: Introduction of suprapubic catheter via trocar and cystoscopy Informed consent was obtained from the patient regarding this procedure. All possible complications including the possibility of internal organ injury were discussed with patient. He decided to proceed. He was taken to the operating room and kept in the supine position. His abdomen was thoroughly prepped and draped in usual fashion. Ultrasound guidance was used for placement of suprapubic catheter using the trocar technique. Marcaine 0.5% with epinephrine was used for skin and deeper anesthesia. A small skin incision was made and the suprapubic trocar was introduced into the bladder using ultrasound guidance. We first verified the depth of insertion using a spinal needle. After that the trocar was introduced followed by catheter. There was clear urine running out of the trocar and the catheter. Cystoscopy was performed and the position of the catheter inside the bladder was verified. The patient tolerated the procedure very well.
[2017-07-09 11:46] VITALS: BP 143/69
== END 2017-07-09 14:15 | disposition home or self-care (01) ==
LOC: KA.SDS 07:56
PROVIDERS: ATTEND Family Medicine
DX: R33.9 Retention of urine, unspecified (principal); N40.1 Benign prostatic hyperplasia with lower urinary tract symptoms; I25.10 Atherosclerotic heart disease of native coronary artery without angina pectoris; E78.2 Mixed hyperlipidemia; I73.9 Peripheral vascular disease, unspecified; I10 Essential (primary) hypertension; Z79.899 Other long term (current) drug therapy
CPT/HCPCS: 00910; J2250; J2704; J3010; J7120

== ENCOUNTER 2019-06-12 11:24 | Emergency (ER) | payer MEDICARE, OTHER ==
[2019-06-12] MEDS ORDERED: Sodium Chloride 0.9% 1,000 ML IV ONE ×2 (11:46→13:08)
[2019-06-12] MEDS ORDERED: Sodium Chloride 0.9% 10 ML Syringe FLUSH PRN (11:46)
--- NOTE | 2019-06-12 12:31 | EDM.PDOC ---
ED HPI GENERAL MEDICAL PROBLEM - General Chief Complaint: Abdominal Pain Stated Complaint: ABDOMINAL PAIN,COUGH SYMPTOMS, WEAKNESS Time Seen by Provider: 06/12/19 11:36 Source of Information: Reports: Patient History Limitations: Reports: No Limitations - History of Present Illness INITIAL COMMENTS - FREE TEXT/NARRATIVE: Patient is an 83-year-old gentleman who presents to the emergency department via private vehicle with a complaint of lower abdominal pain. Patient currently has a chronic suprapubic indwelling urinary catheter secondary to prostate cancer. He was seen at [facility] one week ago and had catheter replaced. Patient states over the last week He's had some mild to moderate suprapubic discomfort, but the catheter seems to be working. Patient denies fever, nausea, vomiting, diarrhea, chest pain, shortness of breath, displacement of the catheter, testicular pain, or flank pain. Onset: Gradual Duration: Day(s): Location: Reports: Abdomen Quality: Reports: Pressure Severity: Mild Improves with: Reports: None Worsens with: Reports: None Associated Symptoms: Reports: No Other Symptoms - Related Data Allergies Allergy/AdvReac Type Severity Reaction Status Date / Time ceftriaxone sodium Allergy Shortness Verified 06/12/19 11:45 [From Rocephin] of Breath Penicillins Allergy Cannot Verified 06/12/19 11:45 Remember Home Meds: Home Meds Acetaminophen [Tylenol] 650 mg PO DAILY 11/15/15 [History] Carbidopa/Levodopa [Carbidopa-Levodopa 25-100 Tab] 25 - 100 mg PO TIDMEALS 11/14 [History] Cholecalciferol (Vitamin D3) [D3-2000] 2,000 unit PO DAILY 11/15/15 [History] Nitroglycerin [Nitrostat] 0.4 mg SL Q5M PRN 11/15/15 [History] Simvastatin [Zocor] 40 mg PO BEDTIME 11/15/15 [History] Lisinopril 5 mg PO DAILY 01/02/17 [History] Tamsulosin [Flomax] 0.4 mg PO BEDTIME 03/14/17 [History] Aspirin [Halfprin] 81 mg PO DAILY 06/12/19 [History] Ciprofloxacin HCl [Cipro] 500 mg PO BID #10 tablet 06/12/19 [Rx] Past Medical History HEENT History: Reports: Hard of Hearing, Impaired Vision Cardiovascular History: Reports: High Cholesterol, Hypertension, SOB on Exertion Respiratory History: Reports: COPD, Pneumonia, Recurrent Gastrointestinal History: Reports: Fecal Incontinence Genitourinary History: Reports: Prostate Disorder, UTI, Recurrent, Other (See Below) Other Genitourinary History: Indwelling catheter due to retention Musculoskeletal History: Reports: Arthritis, Other (See Below) Other Musculoskeletal History: parkinson's disease Neurological History: Reports: Parkinson's Psychiatric History: Reports: Other (See Below) Other Psychiatric History: forgetful. Endocrine/Metabolic History: Reports: Vitamin D Deficiency Hematologic History: Reports: B12 Deficiency - Past Surgical History Head Surgeries/Procedures: Reports: None HEENT Surgical History: Reports: None Cardiovascular Surgical History: Reports: Other (See Below) Other Cardiovascular Surgeries/Procedures: stents in bilateral LE's Respiratory Surgical History: Reports: None GI Surgical History: Reports: Hernia Repair/Other Male Surgical History: Reports: Other (See Below) Other Male Surgeries/Procedures: prostate surgery 05/14/17 Endocrine Surgical History: Reports: None Neurological Surgical History: Reports: None Musculoskeletal Surgical History: Reports: None Social & Family History - Family History Family Medical History: Noncontributory HEENT: Reports: None Cardiac: Reports: None, [place] Respiratory: Reports: None GI: Reports: None : Reports: None OBGYN: Reports: None Musculoskeletal: Reports: None Neurological: Reports: None Psychiatric: Reports: None Endocrine/Metabolic: Reports: None Hematologic: Reports: None Immunologic: Reports: None Dermatologic: Reports: None Oncologic: Reports: Other (See Below) - Caffeine Use Caffeine Use: Reports: None ED ROS GENERAL - Review of Systems Review Of Systems: Comprehensive ROS is negative, except as noted in HPI. Constitutional: Reports: No Symptoms HEENT: Reports: No Symptoms Respiratory: Reports: No Symptoms Cardiovascular: Reports: No Symptoms Endocrine: Reports: No Symptoms GI/Abdominal: Reports: Abdominal Pain. Denies: Black Stool, Bloody Stool, Constipation, Diarrhea, Nausea, Vomiting : Reports: Other (Indwelling suprapubic catheter) Musculoskeletal: Reports: No Symptoms Skin: Reports: No Symptoms Neurological: Reports: No Symptoms Psychiatric: Reports: No Symptoms Hematologic/Lymphatic: Reports: No Symptoms Immunologic: Reports: No Symptoms ED EXAM, RENAL/ - Physical Exam Exam: See Below Exam Limited By: No Limitations General Appearance: Alert, WD/WN, No Apparent Distress Nose: Normal Inspection, Normal Mucosa, No Blood Throat/Mouth: Normal Inspection, Normal Oropharynx, No Airway Compromise Head: Atraumatic, Normocephalic Neck: Normal Inspection Respiratory/Chest: No Respiratory Distress, Lungs Clear, Normal Breath Sounds, No Accessory Muscle Use, Chest Non-Tender Cardiovascular: Regular Rate, Rhythm, No Murmur GI/Abdominal: Normal Bowel Sounds, Soft, Non-Tender, No Organomegaly, No Distention, No Abnormal Bruit, No Mass, Pelvis Stable (Male) Exam: No Hernia, Suprapubic Fullness. No: Hernia, Inguinal Lymphadenopathy, Scrotal Swelling, Scrotum Tenderness (L), Scrotum Tenderness (R ), Testicular Mass, Testicular Tenderness (L), Testicular Tenderness (R) Back Exam: Normal Inspection. No: CVA Tenderness (L), CVA Tenderness (R) Extremities: Normal Inspection, No Pedal Edema Neurological: Alert, Oriented, Normal Cognition Psychiatric: Normal Affect, Normal Mood Skin Exam: Warm, Dry, Intact, Normal Color, No Rash Lymphatic: No Adenopathy Course - Vital Signs Last Recorded V/S: Last Vital Signs Temp 97.8 F 06/12/19 11:39 Pulse 76 06/12/19 13:02 Resp 20 06/12/19 13:02 BP 90/40 L 06/12/19 13:02 Pulse Ox 95 06/12/19 13:02 - Orders/Labs/Meds Orders: Active Orders 24 hr Category Date Time Status Peripheral IV Care [RC] . DIRECTED Care 06/12/19 11:46 Active CULTURE URINE [RM] Stat Lab 06/12/19 12:40 Received Sodium Chloride 0.9% [Saline Flush] Med 06/12/19 11:46 Active 10 ml FLUSH Q8HR PRN Peripheral IV Insertion Adult [OM.PC] Routine Oth 06/12/19 11:46 Ordered Medication Orders Sodium Chloride (Saline Flush) 10 ml FLUSH Q8HR PRN PRN Reason: keep vein open Labs: Laboratory Tests 06/12/19 Range/Units 12:40 Specimen Type Urinsp Urine Color Yellow (YELLOW) Urine Appearance Cloudy H (CLEAR) Urine pH 5.0 (5.0-9.0) Ur Specific [place] 1.020 (1.005-1.030) Urine Protein 100 H (NEGATIVE) mg/dL Urine Glucose (UA) Negative (NEGATIVE) mg/dL Urine Ketones Trace H (NEGATIVE) mg/dL Urine Occult Blood Moderate H (NEGATIVE) Urine Nitrite Negative (NEGATIVE) Urine Bilirubin Small H (NEGATIVE) Urine Urobilinogen 1.0 (0.2-1.0) E.U./dL Ur Leukocyte Esterase Small H (NEGATIVE) Urine RBC >100 H (0-5) /HPF Urine WBC Semi-packed (0-5) /HPF Ur Epithelial Cells Few /LPF Urine Bacteria Many H (NONE TO FEW) /HPF Meds: Medications Generic Name Dose Route Start Last Admin Trade Name Freq PRN Reason Stop Dose Admin Sodium Chloride 10 ml 06/12/19 11:46 Saline Flush FLUSH Q8HR PRN keep vein open Discontinued Medications Generic Name Dose Route Start Last Admin Trade Name Freq PRN Reason Stop Dose Admin Sodium Chloride 1,000 mls @ 999 mls/hr 06/12/19 11:46 06/12/19 12:05 Normal Saline IV 06/12/19 12:46 999 mls/hr .BOLUS ONE Administration Ciprofloxacin/Dextrose 400 mg/ 200 mls @ 200 mls/hr 06/12/19 13:08 06/12/19 13:20 Premix IV 06/12/19 14:07 200 mls/hr ONETIME ONE Administration Sodium Chloride 1,000 mls @ 999 mls/hr 06/12/19 13:08 06/12/19 13:12 Normal Saline IV 06/12/19 14:08 999 mls/hr .BOLUS ONE Administration Sodium Chloride Confirm 06/12/19 13:10 06/12/19 13:13 Normal Saline Administered 06/12/19 13:11 Not Given Dose 1,000 mls @ as directed .ROUTE .K-MED ONE - Radiology Interpretation Free Text/Narrative:: X-ray of urinary catheter indeterminant of position - Re-Assessments/Exams Free Text/Narrative Re-Assessment/Exam: 06/12/19 14:41 Patient afebrile, vital signs stable with pressure in 90s over 50s, denies any abdominal pain. Patient is currently on lisinopril and did take it this morning. However, advised patient to hold lisinopril until he follows up the clinic on Friday. Patient given 400 mg Cipro in the ER as patient is allergic to Rocephin and allergic reaction is unknown. He will be given Cipro dosage for tomorrow and follow-up at the clinic on Friday for possible referral to [facility]. Catheter functioning, and reposition not appropriate at this time. Departure - Departure Time of Disposition: 14:47 Disposition: Home, Self-Care 01 Condition: Good Clinical Impression: UTI (urinary tract infection) due to urinary indwelling catheter Qualifiers: Indwelling urinary catheter type: cystostomy catheter Encounter type: initial encounter Qualified Code(s): T83.510A - Infection and inflammatory reaction due to cystostomy catheter, initial encounter - Discharge Information Instructions: Urinary Tract Infection, Adult, [id number], Urine Culture and Sensitivity Testing, Antibiotic Medicine, Adult Referrals: Rajiv Aguirre PA-C [Primary Care Provider] - Forms: ED Department Discharge Additional Instructions: Follow-up at [facility] on Friday for possible referral to [facility]. Hold lisinopril until seen by [place] provider. Return to emergency department if abdominal pain returns or catheter is not working. Sepsis Event Note - Evaluation Sepsis Screening Result: No Definite Risk - Focused Exam Vital Signs: Vital Signs Temp Pulse Resp BP Pulse Ox 06/12/19 13:02 76 20 90/40 L 95 06/12/19 12:36 80 20 95/41 L 94 L 06/12/19 12:30 20 95/41 L 95 06/12/19 12:15 95/34 L 06/12/19 12:00 86/35 L 06/12/19 11:45 87/41 L 06/12/19 11:39 97.8 F 98 16 72/44 L 90 L Date Exam was Performed: 06/12/19 Time Exam was Performed: 14:40 - My Orders Last 24 Hours: My Active Orders 06/12/19 11:46 Peripheral IV Care [RC] . DIRECTED Sodium Chloride 0.9% [Saline Flush] 10 ml FLUSH Q8HR PRN Peripheral IV Insertion Adult [OM.PC] Routine 06/12/19 12:40 CULTURE URINE [RM] Stat - Assessment/Plan Last 24 Hours: My Active Orders 06/12/19 11:46 Peripheral IV Care [RC] . DIRECTED Sodium Chloride 0.9% [Saline Flush] 10 ml FLUSH Q8HR PRN Peripheral IV Insertion Adult [OM.PC] Routine 06/12/19 12:40 CULTURE URINE [] Stat Assessment:: Urinary tract infection Plan: Follow-up at the clinic
--- NOTE | 2019-06-12 12:57 | CR ---
[id number] RAD/RAD Abdomen Flat Plate 1V Exam: RAD Abdomen Flat Plate 1V Clinical Data: SUPRAPUBIC URINARY CATHETER PLACEMENT COMPARISON: CORRELATION IS MADE WITH THE EXAM OF 2016 FINDINGS: No catheter is obvious on this plain film exam There is a faint density projecting against the pelvis that may represent the catheter There are bilateral iliac artery stents IMPRESSION: QUESTION OF CATHETER IN PLACE Wilfred Milian MD 06/12/19 [id number] Thank you for allowing us to participate in the care of your patient.
[2019-06-12 13:04] VITALS: BP 90/40
[2019-06-12] MEDS ORDERED: Ciprofloxacin in D5W 400 MG in Premix Bag 1 BAG IV ONE ×2 (13:08)
[2019-06-12] MEDS ORDERED: Sodium Chloride 0.9% 1,000 ML ONE (13:10)
[2019-06-12] MEDS ORDERED: Ciprofloxacin 500 MG Tab PO ONE (14:48)
[2019-06-12 17:13] VITALS: PULSE 79
== END 2019-06-12 15:08 | disposition home or self-care (01) ==
LOC: KA.ED 11:24
DX: T83.510A Infection and inflammatory reaction due to cystostomy catheter, initial encounter (principal); N39.0 Urinary tract infection, site not specified; Z88.1 Allergy status to other antibiotic agents; Z88.0 Allergy status to penicillin
CPT/HCPCS: 51798; 74018; 81001; 87086; 87088; 87186; 96361; 96365; 99284; J0744; J7030; 87077

== ENCOUNTER 2019-11-18 16:06 | Inpatient (IN) | payer MEDICARE, OTHER ==
[2019-11-18] MEDS: Sodium Chloride 0.9% 10 ML Syringe FLUSH PRN (16:25)
--- NOTE | 2019-11-18 16:45 | EDM.PDOC ---
ED HPI GENERAL MEDICAL PROBLEM - General Stated Complaint: fever Time Seen by Provider: 11/18/19 16:32 Source of Information: Reports: Patient, Provider - History of Present Illness INITIAL COMMENTS - FREE TEXT/NARRATIVE: Patient presents with report (from Estevan Vance NP and PA) of fever, chills, diaphoresis. He has a suprapubic catheter. Temp at PA was 100.7 and here 100.9. Patient is hard of hearing and some apparent dementia so doesn't provide much information. He does take breaths for me on command and answers no to some of the questions I asked. - Related Data Allergies Allergy/AdvReac Type Severity Reaction Status Date / Time ceftriaxone sodium Allergy Shortness Verified 11/18/19 16:49 [From [place]] of Breath Penicillins Allergy Cannot Verified 11/18/19 16:49 Remember Home Meds: Home Meds Acetaminophen [Tylenol] 650 mg PO DAILY 11/15/15 [History] Cholecalciferol (Vitamin D3) [D3-2000] 2,000 unit PO DAILY 11/15/15 [History] Nitroglycerin [Nitrostat] 0.4 mg SL Q5M PRN 11/15/15 [History] Simvastatin [Zocor] 40 mg PO BEDTIME 11/15/15 [History] Lisinopril 5 mg PO DAILY 01/02/17 [History] Tamsulosin [Flomax] 0.4 mg PO BEDTIME 03/14/17 [History] Aspirin [Halfprin] 81 mg PO DAILY 06/12/19 [History] Acetaminophen [Tylenol] 650 mg PO Q6H PRN 11/18/19 [History] Carbidopa/Levodopa [Carbidopa-Levodopa 25-100 Tab] 1 tab PO TID 11/18/19 [History] Cyanocobalamin (Vitamin B-12) [Cyanocobalamin Injection] 1 ml IM DAILY 11/18/19 [History] Emollient Combination No.40 [Cetaphil] 1 applic TOP BID 11/18/19 [History] Gabapentin [Neurontin] 100 mg PO BID 11/18/19 [History] Ipratropium [place] 2 spray NASBOTH DAILY 11/18/19 [History] Sennosides/Docusate Sodium [Senna-S] 1 tab PO BID 11/18/19 [History] Sennosides/Docusate Sodium [Senna-S] 1 tab PO DAILY PRN 11/18/19 [History] bisacodyL [Bisacodyl] 5 mg PO DAILY PRN 11/18/19 [History] bisacodyL [Dulcolax] 10 mg RECTAL DAILY PRN 11/18/19 [History] Past Medical History HEENT History: Reports: Hard of Hearing, Impaired Vision Cardiovascular History: Reports: High Cholesterol, Hypertension, SOB on Exertion Respiratory History: Reports: COPD, Pneumonia, Recurrent Gastrointestinal History: Reports: Fecal Incontinence Genitourinary History: Reports: Prostate Disorder, UTI, Recurrent, Other (See Below) Other Genitourinary History: Indwelling catheter due to retention Musculoskeletal History: Reports: Arthritis, Other (See Below) Other Musculoskeletal History: parkinson's disease Neurological History: Reports: Parkinson's Psychiatric History: Reports: Other (See Below) Other Psychiatric History: forgetful. Endocrine/Metabolic History: Reports: Vitamin D Deficiency Hematologic History: Reports: B12 Deficiency Immunologic History: Reports: None Oncologic (Cancer) History: Reports: None Dermatologic History: Reports: None - Past Surgical History Head Surgeries/Procedures: Reports: None HEENT Surgical History: Reports: None Cardiovascular Surgical History: Reports: Other (See Below) Other Cardiovascular Surgeries/Procedures: stents in bilateral LE's Respiratory Surgical History: Reports: None GI Surgical History: Reports: Hernia Repair/Other Male Surgical History: Reports: Other (See Below) Other Male Surgeries/Procedures: prostate surgery 05/14/17 Endocrine Surgical History: Reports: None Neurological Surgical History: Reports: None Musculoskeletal Surgical History: Reports: None Social & Family History - Family History Family Medical History: Noncontributory HEENT: Reports: None Cardiac: Reports: None, [place] Respiratory: Reports: None GI: Reports: None : Reports: None OBGYN: Reports: None Musculoskeletal: Reports: None Neurological: Reports: None Psychiatric: Reports: None Endocrine/Metabolic: Reports: None Hematologic: Reports: None Immunologic: Reports: None Dermatologic: Reports: None Oncologic: Reports: Other (See Below) - Caffeine Use Caffeine Use: Reports: None ED ROS GENERAL - Review of Systems Review Of Systems: See Below (limited somewhat by poor hearing and understanding from patient) Constitutional: Reports: Fever, Chills, Diaphoresis Respiratory: Denies: Shortness of Breath, Cough Cardiovascular: Denies: Chest Pain GI/Abdominal: Denies: Abdominal Pain, Vomiting : Reports: Other (has indwelling suprapubic cather) Musculoskeletal: Reports: No Symptoms Skin: Reports: Diaphoresis (and warm). Denies: Cyanosis, Jaundice, Mottled, Pallor Psychiatric: Reports: Other (nonverbal with limited response to yes and no questions). Denies: Agitation, Anxiety ED EXAM, SEPSIS - Physical Exam Exam: See Below Exam Limited By: No Limitations General Appearance: Alert, WD/WN, No Apparent Distress Eye Exam: Bilateral Eye: EOMI, Normal Inspection, PERRL Ears: Normal External Exam, Hearing Loss (chronic) Nose: Normal Inspection, No Blood Throat/Mouth: Normal Inspection, Normal Lips, No Airway Compromise Head: Atraumatic, Normocephalic Neck: Normal Inspection Respiratory/Chest: No Respiratory Distress, Lungs Clear, Normal Breath Sounds, No Accessory Muscle Use Cardiovascular: Regular Rate, Rhythm, No Murmur Peripheral Pulses: 0: Radial (R) (couldn't find pulse but skin is warm and pink throughout arm/hand), 1+: Posterior Tibial (L), Posterior Tibial (R), 2+: Carotid (L), Carotid (R), Radial (L) GI/Abdominal Exam: Normal Bowel Sounds, Soft, Non-Tender, No Organomegaly, No Distention Back: Normal Inspection, Full Range of Motion. No: CVA Tenderness (L), CVA Tenderness (R) Extremities: Normal Inspection Skin: Warm, Intact, Normal Color, No Rash, Diaphoretic (slight) Course - Vital Signs Last Recorded V/S: Last Vital Signs Temp 99.7 F 11/18/19 16:41 Pulse 101 H 11/18/19 16:41 Resp 27 H 11/18/19 16:41 BP 148/45 H 11/18/19 16:41 Pulse Ox 92 L 11/18/19 16:41 - Orders/Labs/Meds Orders: Active Orders 24 hr Category Date Time Status Patient Status [ADT] Routine ADT 11/18/19 18:22 Ordered Peripheral IV Care [RC] . DIRECTED Care 11/18/19 17:14 Active CULTURE BLOOD [BC] Stat Lab 11/18/19 16:09 Ordered CULTURE BLOOD [BC] Stat Lab 11/18/19 18:01 Ordered CULTURE URINE [RM] Stat Lab 11/18/19 16:09 Ordered Ciprofloxacin in D5W [Cipro in D5W 400 MG/200 ML] 400 Med 11/18/19 18:20 Ordered mg Premix Bag 1 bag IV ONETIME Sodium Chloride 0.9% [Saline Flush] Med 11/18/19 17:13 Active 10 ml FLUSH Q8HR PRN Peripheral IV Insertion Adult [OM.PC] Routine Oth 11/18/19 17:13 Ordered Medication Orders Ciprofloxacin/Dextrose 400 mg/ (Premix) 200 mls @ 200 mls/hr IV ONETIME ONE Stop: 11/18/19 19:19 Sodium Chloride (Saline Flush) 10 ml FLUSH Q8HR PRN PRN Reason: keep vein open Last Admin: 11/18/19 16:25 Dose: 10 ml Documented by: LISSETTE Labs: Laboratory Tests 11/18/19 11/18/19 11/18/19 Range/Units 16:25 16:25 16:25 WBC 10.57 H (5.00-10.00) 10^3/uL RBC 4.50 (4.50-6.00) 10^6/uL Hgb 12.9 L (13.0-17.0) g/dL Hct 40.1 (40.0-52.0) % MCV 89.1 (82.0-92.0) fL MCH 28.7 (27.0-31.0) pg MCHC 32.2 (32.0-36.0) g/dL RDW 14.7 H (11.5-14.5) % Plt Count 249 (150-400) 10^3/uL MPV 11.3 H (7.4-10.4) fL Immature Gran % (Auto) 0.3 (0.0-5.0) % Neut % (Auto) 80.3 H (50.0-70.0) % Lymph % (Auto) 10.1 L (20.0-40.0) % [place] % (Auto) 9.1 H (2.0-8.0) % Eos % (Auto) 0.0 L (1.0-3.0) % Baso % (Auto) 0.2 (0.0-1.0) % Neut # (Auto) 8.49 H (2.50-7.00) 10^3/uL Lymph # (Auto) 1.07 (1.00-4.00) 10^3/uL [place] # (Auto) 0.96 H (0.10-0.80) 10^3/uL Eos # (Auto) 0.00 L (0.10-0.30) 10^3/uL Baso # (Auto) 0.02 (0.00-0.10) 10^3/uL Immature Gran # (Auto) 0.03 (0.00-0.50) 10^3/uL Sodium 135 L (136-145) mmol/L Potassium 4.3 (3.3-5.3) mmol/L Chloride 103 (98-115) mmol/L Carbon Dioxide 23.2 (21.0-32.0) mmol/L Anion Gap 13.1 (5-15) mmol/L BUN 32 H (6-25) mg/dL Creatinine 1.31 H (0.51-1.17) mg/dL Est Cr Clr Drug Dosing 37.88 mL/min Estimated GFR (MDRD) 52 mL/min Glucose 133 H (75 - 99) mg/dL Lactic Acid 1.2 (0.4-2.0) mmol/L Calcium 8.6 L (8.7-10.3) mg/dL C-Reactive Protein 9.1 H (0.0-0.9) mg/dL Specimen Type Urine Color (YELLOW) Urine Appearance (CLEAR) Urine pH (5.0-9.0) Ur Specific [place] (1.005-1.030) Urine Protein (NEGATIVE) mg/dL Urine Glucose (UA) (NEGATIVE) mg/dL Urine Ketones (NEGATIVE) mg/dL Urine Occult Blood (NEGATIVE) Urine Nitrite (NEGATIVE) Urine Bilirubin (NEGATIVE) Urine Urobilinogen (0.2-1.0) E.U./dL Ur Leukocyte Esterase (NEGATIVE) Urine RBC (0-5) /HPF Urine WBC (0-5) /HPF Ur Epithelial Cells /LPF Urine Bacteria (NONE TO FEW) /HPF Granular Casts (Auto) COVID-19 (ANGEL) (NEGATIVE) 11/18/19 11/18/19 Range/Units 16:27 17:58 WBC (5.00-10.00) 10^3/uL RBC (4.50-6.00) 10^6/uL Hgb (13.0-17.0) g/dL Hct (40.0-52.0) % MCV (82.0-92.0) fL MCH (27.0-31.0) pg MCHC (32.0-36.0) g/dL RDW (11.5-14.5) % Plt Count (150-400) 10^3/uL MPV (7.4-10.4) fL Immature Gran % (Auto) (0.0-5.0) % Neut % (Auto) (50.0-70.0) % Lymph % (Auto) (20.0-40.0) % [place] % (Auto) (2.0-8.0) % Eos % (Auto) (1.0-3.0) % Baso % (Auto) (0.0-1.0) % Neut # (Auto) (2.50-7.00) 10^3/uL Lymph # (Auto) (1.00-4.00) 10^3/uL [place] # (Auto) (0.10-0.80) 10^3/uL Eos # (Auto) (0.10-0.30) 10^3/uL Baso # (Auto) (0.00-0.10) 10^3/uL Immature Gran # (Auto) (0.00-0.50) 10^3/uL Sodium (136-145) mmol/L Potassium (3.3-5.3) mmol/L Chloride (98-115) mmol/L Carbon Dioxide (21.0-32.0) mmol/L Anion Gap (5-15) mmol/L BUN (6-25) mg/dL Creatinine (0.51-1.17) mg/dL Est Cr Clr Drug Dosing mL/min Estimated GFR (MDRD) mL/min Glucose (75 - 99) mg/dL Lactic Acid (0.4-2.0) mmol/L Calcium (8.7-10.3) mg/dL C-Reactive Protein (0.0-0.9) mg/dL Specimen Type Urinsp Urine Color Yellow (YELLOW) Urine Appearance Cloudy H (CLEAR) Urine pH 6.5 (5.0-9.0) Ur Specific [place] 1.020 (1.005-1.030) Urine Protein 30 H (NEGATIVE) mg/dL Urine Glucose (UA) Negative (NEGATIVE) mg/dL Urine Ketones Trace H (NEGATIVE) mg/dL Urine Occult Blood Moderate H (NEGATIVE) Urine Nitrite Negative (NEGATIVE) Urine Bilirubin Negative (NEGATIVE) Urine Urobilinogen 0.2 (0.2-1.0) E.U./dL Ur Leukocyte Esterase Moderate H (NEGATIVE) Urine RBC 10-20 H (0-5) /HPF Urine WBC Semi-packed (0-5) /HPF Ur Epithelial Cells Rare /LPF Urine Bacteria Many H (NONE TO FEW) /HPF Granular Casts (Auto) Few COVID-19 (ANGEL) Negative (NEGATIVE) Meds: Medications Generic Name Dose Route Start Last Admin Trade Name Freq PRN Reason Stop Dose Admin Ciprofloxacin/Dextrose 400 mg/ 200 mls @ 200 mls/hr 11/18/19 18:20 Premix IV 11/18/19 19:19 ONETIME ONE Sodium Chloride 10 ml 11/18/19 17:13 11/18/19 16:25 Saline Flush FLUSH 10 ml Q8HR PRN Administration keep vein open Discontinued Medications Generic Name Dose Route Start Last Admin Trade Name Freq PRN Reason Stop Dose Admin Sodium Chloride 1,000 mls @ 999 mls/hr 11/18/19 16:50 11/18/19 16:50 Normal Saline IV 11/18/19 17:50 999 mls/hr .BOLUS ONE Administration - Re-Assessments/Exams Free Text/Narrative Re-Assessment/Exam: 11/18/19 18:23 WBC is 10.57, ANC 8.49, CRP 9.1. Discussed case with Dr. Rodriguez who accepts for admission and starting on Cipro. 11/18/19 19:04 CXR looks okay. Patient admitted to in stable condition. Departure - Departure Time of Disposition: 19:05 Disposition: Admitted As Inpatient 66 Condition: Fair Clinical Impression: UTI (urinary tract infection), bacterial, Elevated C-reactive protein (CRP), Neutrophilic leukocytosis - Discharge Information Referrals: Lara Choe MD [Primary Care Provider] - Sepsis Event Note (ED) - Focused Exam Vital Signs: Vital Signs Temp Temp Pulse Resp BP Pulse Ox 11/18/19 16:41 100.9 F H 99.7 F 101 H 27 H 148/45 H 92 L - My Orders Last 24 Hours: My Active Orders 11/18/19 16:09 CULTURE BLOOD [BC] Stat CULTURE URINE [RM] Stat 11/18/19 17:13 Sodium Chloride 0.9% [Saline Flush] 10 ml FLUSH Q8HR PRN Peripheral IV Insertion Adult [OM.PC] Routine 11/18/19 17:14 Peripheral IV Care [RC] . DIRECTED 11/18/19 18:01 CULTURE BLOOD [BC] Stat 11/18/19 18:20 Ciprofloxacin in D5W [Cipro in D5W 400 MG/200 ML] 400 mg Premix Bag 1 bag IV ONETIME 11/18/19 18:22 Patient Status [ADT] Routine - Assessment/Plan Last 24 Hours: My Active Orders 11/18/19 16:09 CULTURE BLOOD [BC] Stat CULTURE URINE [RM] Stat 11/18/19 17:13 Sodium Chloride 0.9% [Saline Flush] 10 ml FLUSH Q8HR PRN Peripheral IV Insertion Adult [OM.PC] Routine 11/18/19 17:14 Peripheral IV Care [RC] . DIRECTED 11/18/19 18:01 CULTURE BLOOD [BC] Stat 11/18/19 18:20 Ciprofloxacin in D5W [Cipro in D5W 400 MG/200 ML] 400 mg Premix Bag 1 bag IV ONETIME 11/18/19 18:22 Patient Status [ADT] Routine
[2019-11-18] MEDS ORDERED: Sodium Chloride 0.9% 1,000 ML IV ONE (16:50)
[2019-11-18 17:17] LABS: ANION GAP 13.1 mmol/L (5-15)
[2019-11-18] MEDS ORDERED: Ciprofloxacin in D5W 400 MG in Premix Bag 1 BAG IV ONE ×2 (18:20)
--- NOTE | 2019-11-18 18:44 | CR ---
[id number] RAD/RAD Chest PA or AP 1V EXAM: SINGLE VIEW CHEST. INDICATION: FEVER LEUKOCYTOSIS COMPARISON: CORRELATION IS MADE WITH NOVEMBER 15, 2015 FINDINGS: There is evidence of centrilobular emphysema There is no pneumonia The cardiac silhouette is stable Reference is made to the CAT scan of June 17, 2012 IMPRESSION: COPD NO PNEUMONIA Wilfred Milian MD 11/18/19 0258 Thank you for allowing us to participate in the care of your patient.
[2019-11-18] MEDS: Sodium Chloride 0.9% 100 ML IV SCH (19:51)
[2019-11-18] MEDS ORDERED: Bisacodyl 5 MG Tab PO PRN (21:24)
[2019-11-18] MEDS ORDERED: Bisacodyl 10 MG Supp RECTAL PRN (21:24)
[2019-11-18] MEDS ORDERED: Nitroglycerin 0.4 MG Tab.SL SL PRN (21:27)
[2019-11-19] MEDS: Gabapentin 100 MG Cap PO SCH ×3 (00:38→20:29)
[2019-11-19] MEDS: Carbidopa/Levodopa 25-100 MG Tab PO SCH ×4 (00:39→20:29)
[2019-11-19] MEDS: Acetaminophen 325 MG Tab PO PRN ×3 (00:47→16:33)
[2019-11-19] MEDS: Lactated Ringers 1,000 ML IV SCH ×2 (01:23→20:26)
[2019-11-19 08:30] LABS: ANION GAP 12.7 mmol/L (5-15)
[2019-11-19] MEDS: Cholecalciferol (Vitamin D3) 25 MCG Tab PO SCH (08:36)
[2019-11-19] MEDS: Lisinopril 5 MG Tab PO SCH (08:37)
[2019-11-19] MEDS: Aspirin 81 MG Tab.EC PO SCH (08:37)
[2019-11-19] MEDS ORDERED: Carbidopa/Levodopa 25-100 MG Tab PO SCH (09:00)
--- NOTE | 2019-11-19 10:29 | PCM.HP.2 ---
H&P History of Present Illness - General Date of Service: 11/19/19 Admit Problem/Dx: Admission Diagnosis/Problem Admission Diagnosis/Problem UTI (urinary tract infection) due to urinary indwelling catheter Source of Information: Patient, Old Records, Provider, RN History Limitations: Reports: Physical Impairment - Related Data Allergies/Adverse Reactions: Allergies Allergy/AdvReac Type Severity Reaction Status Date / Time ceftriaxone sodium Allergy Shortness Verified 11/18/19 16:49 [From Rocephin] of Breath Penicillins Allergy Cannot Verified 11/18/19 16:49 Remember Home Medications: Home Meds Acetaminophen [Tylenol] 650 mg PO BEDTIME 11/15/15 [History] Cholecalciferol (Vitamin D3) [D3-2000] 2,000 unit PO DAILY 11/15/15 [History] Nitroglycerin [Nitrostat] 0.4 mg SL Q5M PRN 11/15/15 [History] Simvastatin [Zocor] 40 mg PO BEDTIME 11/15/15 [History] Lisinopril 5 mg PO DAILY 01/02/17 [History] Tamsulosin [Flomax] 0.4 mg PO BEDTIME 03/14/17 [History] Aspirin [Halfprin] 81 mg PO DAILY 06/12/19 [History] Acetaminophen [Tylenol] 650 mg PO Q6H PRN 11/18/19 [History] Carbidopa/Levodopa [Carbidopa-Levodopa 25-100 Tab] 1 tab PO TID 11/18/19 [History] Cyanocobalamin (Vitamin B-12) [Cyanocobalamin Injection] 1 ml IM ASDIRECTED 11/18/19 [History] Emollient Combination No.40 [Cetaphil] 1 applic TOP BID 11/18/19 [History] Gabapentin [Neurontin] 100 mg PO BID 11/18/19 [History] Ipratropium [place] 2 spray NASBOTH DAILY 11/18/19 [History] Sennosides/Docusate Sodium [Senna-S] 1 tab PO BID 11/18/19 [History] Sennosides/Docusate Sodium [Senna-S] 1 tab PO DAILY PRN 11/18/19 [History] bisacodyL [Bisacodyl] 5 mg PO DAILY PRN 11/18/19 [History] bisacodyL [Dulcolax] 10 mg RECTAL DAILY PRN 11/18/19 [History] Past Medical History HEENT History: Reports: Hard of Hearing, Impaired Vision Other HEENT History: chronic rhinitis Cardiovascular History: Reports: High Cholesterol, Hypertension, SOB on Exertion Respiratory History: Reports: COPD, Pneumonia, Recurrent Gastrointestinal History: Reports: Fecal Incontinence Genitourinary History: Reports: Prostate Disorder, UTI, Recurrent, Other (See Below) Other Genitourinary History: Indwelling catheter due to retention Musculoskeletal History: Reports: Arthritis, Other (See Below) Other Musculoskeletal History: parkinson's disease Neurological History: Reports: Parkinson's Psychiatric History: Reports: Other (See Below) Other Psychiatric History: forgetful. Endocrine/Metabolic History: Reports: Vitamin D Deficiency Other Endocrine/Metabolic History: vitamin b deficiency Hematologic History: Reports: B12 Deficiency Immunologic History: Reports: None Oncologic (Cancer) History: Reports: None Dermatologic History: Reports: None - Past Surgical History Head Surgeries/Procedures: Reports: None HEENT Surgical History: Reports: None Cardiovascular Surgical History: Reports: Other (See Below) Other Cardiovascular Surgeries/Procedures: stents in bilateral LE's Respiratory Surgical History: Reports: None GI Surgical History: Reports: Hernia Repair/Other Male Surgical History: Reports: Other (See Below) Other Male Surgeries/Procedures: prostate surgery 05/14/17 Endocrine Surgical History: Reports: None Neurological Surgical History: Reports: None Musculoskeletal Surgical History: Reports: None Social & Family History - Family History Family Medical History: Noncontributory HEENT: Reports: None Cardiac: Reports: None, [place] Respiratory: Reports: None GI: Reports: None : Reports: None OBGYN: Reports: None Musculoskeletal: Reports: None Neurological: Reports: None Psychiatric: Reports: None Endocrine/Metabolic: Reports: None Hematologic: Reports: None Immunologic: Reports: None Dermatologic: Reports: None Oncologic: Reports: Other (See Below) - Tobacco Use Smoking Status *Q: Unknown Ever Smoked - Caffeine Use Caffeine Use: Reports: None H&P Review of Systems - Review of Systems: Review Of Systems: See Below General: Reports: Fever, Chills, Malaise, Weakness, Night Sweats HEENT: Reports: Hearing Changes Pulmonary: Reports: No Symptoms Cardiovascular: Reports: No Symptoms Gastrointestinal: Reports: No Symptoms Genitourinary: Reports: Other (Suprapubic catheter). Denies: Frequency, Burning, Retention Musculoskeletal: Reports: No Symptoms Skin: Reports: Pallor, Dryness Psychiatric: Denies: Agitation Neurological: Reports: Difficulty Walking. Denies: Confusion Hematologic/Lymphatic: Reports: No Symptoms Exam - Exam Exam: See Below - Vital Signs Vital Signs: Last Vital Signs Temp 97.6 F 11/19/19 06:32 Pulse 89 11/19/19 06:32 Resp 24 H 11/19/19 06:32 BP 113/61 11/19/19 08:37 Pulse Ox 97 11/19/19 06:32 Weight: 160 lb - Exam Quality Assessment: No: Supplemental Oxygen General: Alert, Oriented, Cooperative. No: Mild Distress HEENT: No: Mucosa Moist & [place] Neck: Supple Lungs: Clear to Auscultation, Normal Respiratory Effort Cardiovascular: Regular Rate, Regular Rhythm GI/Abdominal Exam: Soft, No Distention. No: Distended (Male) Exam: Deferred, Other (Pubic catheter draining clear yellow urine) Rectal (Males) Exam: Deferred Back Exam: No: CVA Tenderness (L) Extremities: No Pedal Edema Peripheral Pulses: 2+: Radial (L), Radial (R) Skin: Dry Neurological: Cranial Nerves Intact Neuro Extensive - Mental Status: Alert, Oriented x3, Normal Mood/Affect, Normal Cognition Neuro Extensive - Motor, Sensory, Reflexes: No: Normal Gait, Tongue Deviation (R), Dysarthria, Total Aphasia, Motor/Sensory Deficits Psychiatric: Alert, Normal Affect, Normal Mood. No: Depressed, Agitated - Patient Data Lab Results Last 24 hrs: Laboratory Results - last 24 hr 11/18/19 11/18/19 11/18/19 Range/Units 16:25 16:25 16:25 WBC 10.57 H (5.00-10.00) 10^3/uL RBC 4.50 (4.50-6.00) 10^6/uL Hgb 12.9 L (13.0-17.0) g/dL Hct 40.1 (40.0-52.0) % MCV 89.1 (82.0-92.0) fL MCH 28.7 (27.0-31.0) pg MCHC 32.2 (32.0-36.0) g/dL RDW 14.7 H (11.5-14.5) % Plt Count 249 (150-400) 10^3/uL MPV 11.3 H (7.4-10.4) fL Immature Gran % (Auto) 0.3 (0.0-5.0) % Neut % (Auto) 80.3 H (50.0-70.0) % Lymph % (Auto) 10.1 L (20.0-40.0) % [place] % (Auto) 9.1 H (2.0-8.0) % Eos % (Auto) 0.0 L (1.0-3.0) % Baso % (Auto) 0.2 (0.0-1.0) % Neut # (Auto) 8.49 H (2.50-7.00) 10^3/uL Lymph # (Auto) 1.07 (1.00-4.00) 10^3/uL [place] # (Auto) 0.96 H (0.10-0.80) 10^3/uL Eos # (Auto) 0.00 L (0.10-0.30) 10^3/uL Baso # (Auto) 0.02 (0.00-0.10) 10^3/uL Immature Gran # (Auto) 0.03 (0.00-0.50) 10^3/uL Sodium 135 L (136-145) mmol/L Potassium 4.3 (3.3-5.3) mmol/L Chloride 103 (98-115) mmol/L Carbon Dioxide 23.2 (21.0-32.0) mmol/L Anion Gap 13.1 (5-15) mmol/L BUN 32 H (6-25) mg/dL Creatinine 1.31 H (0.51-1.17) mg/dL Est Cr Clr Drug Dosing 37.88 mL/min Estimated GFR (MDRD) 52 mL/min Glucose 133 H (75 - 99) mg/dL Lactic Acid 1.2 (0.4-2.0) mmol/L Calcium 8.6 L (8.7-10.3) mg/dL Total Bilirubin (0.2-1.0) mg/dL AST (15-37) U/L ALT (12-78) U/L Alkaline Phosphatase (46-116) IU/L C-Reactive Protein 9.1 H (0.0-0.9) mg/dL Total Protein (6.4-8.2) g/dL Albumin (3.00-4.80) g/dL Specimen Type Urine Color (YELLOW) Urine Appearance (CLEAR) Urine pH (5.0-9.0) Ur Specific [place] (1.005-1.030) Urine Protein (NEGATIVE) mg/dL Urine Glucose (UA) (NEGATIVE) mg/dL Urine Ketones (NEGATIVE) mg/dL Urine Occult Blood (NEGATIVE) Urine Nitrite (NEGATIVE) Urine Bilirubin (NEGATIVE) Urine Urobilinogen (0.2-1.0) E.U./dL Ur Leukocyte Esterase (NEGATIVE) Urine RBC (0-5) /HPF Urine WBC (0-5) /HPF Ur Epithelial Cells /LPF Urine Bacteria (NONE TO FEW) /HPF Granular Casts (Auto) COVID-19 (ANGEL) (NEGATIVE) 11/18/19 11/18/19 11/19/19 Range/Units 16:27 17:58 07:24 WBC 10.42 H (5.00-10.00) 10^3/uL RBC 3.94 L (4.50-6.00) 10^6/uL Hgb 11.4 L D (13.0-17.0) g/dL Hct 36.1 L (40.0-52.0) % MCV 91.6 (82.0-92.0) fL MCH 28.9 (27.0-31.0) pg MCHC 31.6 L (32.0-36.0) g/dL RDW 14.8 H (11.5-14.5) % Plt Count 218 (150-400) 10^3/uL MPV 11.4 H (7.4-10.4) fL Immature Gran % (Auto) (0.0-5.0) % Neut % (Auto) (50.0-70.0) % Lymph % (Auto) (20.0-40.0) % [place] % (Auto) (2.0-8.0) % Eos % (Auto) (1.0-3.0) % Baso % (Auto) (0.0-1.0) % Neut # (Auto) (2.50-7.00) 10^3/uL Lymph # (Auto) (1.00-4.00) 10^3/uL [place] # (Auto) (0.10-0.80) 10^3/uL Eos # (Auto) (0.10-0.30) 10^3/uL Baso # (Auto) (0.00-0.10) 10^3/uL Immature Gran # (Auto) (0.00-0.50) 10^3/uL Sodium (136-145) mmol/L Potassium (3.3-5.3) mmol/L Chloride (98-115) mmol/L Carbon Dioxide (21.0-32.0) mmol/L Anion Gap (5-15) mmol/L BUN (6-25) mg/dL Creatinine (0.51-1.17) mg/dL Est Cr Clr Drug Dosing mL/min Estimated GFR (MDRD) mL/min Glucose (75 - 99) mg/dL Lactic Acid (0.4-2.0) mmol/L Calcium (8.7-10.3) mg/dL Total Bilirubin (0.2-1.0) mg/dL AST (15-37) U/L ALT (12-78) U/L Alkaline Phosphatase (46-116) IU/L C-Reactive Protein (0.0-0.9) mg/dL Total Protein (6.4-8.2) g/dL Albumin (3.00-4.80) g/dL Specimen Type Urinsp Urine Color Yellow (YELLOW) Urine Appearance Cloudy H (CLEAR) Urine pH 6.5 (5.0-9.0) Ur Specific [place] 1.020 (1.005-1.030) Urine Protein 30 H (NEGATIVE) mg/dL Urine Glucose (UA) Negative (NEGATIVE) mg/dL Urine Ketones Trace H (NEGATIVE) mg/dL Urine Occult Blood Moderate H (NEGATIVE) Urine Nitrite Negative (NEGATIVE) Urine Bilirubin Negative (NEGATIVE) Urine Urobilinogen 0.2 (0.2-1.0) E.U./dL Ur Leukocyte Esterase Moderate H (NEGATIVE) Urine RBC 10-20 H (0-5) /HPF Urine WBC Semi-packed (0-5) /HPF Ur Epithelial Cells Rare /LPF Urine Bacteria Many H (NONE TO FEW) /HPF Granular Casts (Auto) Few COVID-19 (ANGEL) Negative (NEGATIVE) 11/19/19 Range/Units 07:24 WBC (5.00-10.00) 10^3/uL RBC (4.50-6.00) 10^6/uL Hgb (13.0-17.0) g/dL Hct (40.0-52.0) % MCV (82.0-92.0) fL MCH (27.0-31.0) pg MCHC (32.0-36.0) g/dL RDW (11.5-14.5) % Plt Count (150-400) 10^3/uL MPV (7.4-10.4) fL Immature Gran % (Auto) (0.0-5.0) % Neut % (Auto) (50.0-70.0) % Lymph % (Auto) (20.0-40.0) % [place] % (Auto) (2.0-8.0) % Eos % (Auto) (1.0-3.0) % Baso % (Auto) (0.0-1.0) % Neut # (Auto) (2.50-7.00) 10^3/uL Lymph # (Auto) (1.00-4.00) 10^3/uL [place] # (Auto) (0.10-0.80) 10^3/uL Eos # (Auto) (0.10-0.30) 10^3/uL Baso # (Auto) (0.00-0.10) 10^3/uL Immature Gran # (Auto) (0.00-0.50) 10^3/uL Sodium 141 (136-145) mmol/L Potassium 4.5 (3.3-5.3) mmol/L Chloride 107 (98-115) mmol/L Carbon Dioxide 25.8 (21.0-32.0) mmol/L Anion Gap 12.7 (5-15) mmol/L BUN 30 H (6-25) mg/dL Creatinine 1.30 H (0.51-1.17) mg/dL Est Cr Clr Drug Dosing 38.17 mL/min Estimated GFR (MDRD) 53 mL/min Glucose 116 H (75 - 99) mg/dL Lactic Acid (0.4-2.0) mmol/L Calcium 8.1 L (8.7-10.3) mg/dL Total Bilirubin 0.5 (0.2-1.0) mg/dL AST 22 (15-37) U/L ALT 12 (12-78) U/L Alkaline Phosphatase 69 (46-116) IU/L C-Reactive Protein (0.0-0.9) mg/dL Total Protein 6.7 (6.4-8.2) g/dL Albumin 2.74 L (3.00-4.80) g/dL Specimen Type Urine Color (YELLOW) Urine Appearance (CLEAR) Urine pH (5.0-9.0) Ur Specific [place] (1.005-1.030) Urine Protein (NEGATIVE) mg/dL Urine Glucose (UA) (NEGATIVE) mg/dL Urine Ketones (NEGATIVE) mg/dL Urine Occult Blood (NEGATIVE) Urine Nitrite (NEGATIVE) Urine Bilirubin (NEGATIVE) Urine Urobilinogen (0.2-1.0) E.U./dL Ur Leukocyte Esterase (NEGATIVE) Urine RBC (0-5) /HPF Urine WBC (0-5) /HPF Ur Epithelial Cells /LPF Urine Bacteria (NONE TO FEW) /HPF Granular Casts (Auto) COVID-19 (ANGEL) (NEGATIVE) Result Diagrams: 11/19/19 07:24 11/19/19 07:24 Sepsis Event Note - Evaluation Sepsis Screening Result: No Definite Risk - Focused Exam Vital Signs: Vital Signs Temp Temp Pulse Resp BP BP Pulse Ox 11/19/19 08:37 113/61 11/19/19 06:32 97.6 F 89 24 H 146/68 H 97 11/19/19 03:08 97.9 F 70 18 104/53 L 97 11/19/19 01:17 99.4 F 11/19/19 00:47 101.8 F H 11/19/19 00:40 101.8 F H 90 22 H 112/49 L 89 L Date Exam was Performed: 11/19/19 Time Exam was Performed: 10:08 Problem List Initiated/Reviewed/Updated: Yes Orders Last 24hrs: Active Orders 24 hr Category Date Time Status Patient Status [ADT] Routine ADT 11/18/19 18:22 Active Vital Signs [RC] 0300,0700,1100,1500,1900,2300 Care 11/19/19 02:54 Active Regular Diet [DIET] Diet 11/19/19 Breakfast Active BLOOD CULTURE [MREF] Stat Lab 11/18/19 16:25 Received BLOOD CULTURE [MREF] Stat Lab 11/18/19 18:24 Received CULTURE URINE [RM] Stat Lab 11/18/19 17:58 Received CULTURE WOUND [RM] Routine Lab 11/19/19 01:30 Ordered Acetaminophen [Tylenol] Med 11/19/19 21:00 Active 650 mg PO BEDTIME Acetaminophen [Tylenol] Med 11/18/19 21:24 Active 650 mg PO Q6H PRN Aspirin [Halfprin] Med 11/19/19 09:00 Active 81 mg PO DAILY Carbidopa/Levodopa [Sinemet 25-100 mg] Med 11/19/19 00:00 Active 1 tab PO TID Cholecalciferol (Vitamin D3) [Vitamin D3] Med 11/19/19 09:00 Active 50 mcg PO DAILY Cyanocobalamin (Vitamin B12) [Vitamin B12] Med 12/12/19 09:00 Active 1,000 mcg IM Q30D Docusate Sodium/Sennosides [Senna Plus] Med 11/19/19 09:00 Active 1 tab PO BID Docusate Sodium/Sennosides [Senna Plus] Med 11/18/19 21:27 Active 1 tab PO DAILY PRN Emollient Combination No.40 [Cetaphil] Med 11/19/19 09:00 Pending 1 applic TOP BID Gabapentin [Neurontin] Med 11/19/19 00:00 Active 100 mg PO BID Ipratropium [place] Med 11/19/19 09:00 Pending 2 spray NASBOTH DAILY Lactated Ringers [Ringers, Lactated] 1,000 ml Med 11/19/19 00:30 Active IV ASDIRECTED Nitroglycerin [Nitrostat] Med 11/18/19 21:27 Active 0.4 mg SL Q5M PRN Simvastatin [Zocor] Med 11/19/19 21:00 Active 40 mg PO BEDTIME Sodium Chloride 0.9% [Normal Saline] 100 ml Med 11/18/19 19:45 Active IV ASDIRECTED Sodium Chloride 0.9% [Saline Flush] Med 11/18/19 17:13 Active 10 ml FLUSH Q8HR PRN Tamsulosin [Flomax] Med 11/19/19 21:00 Active 0.4 mg PO BEDTIME bisacodyL [Dulcolax] Med 11/18/19 21:24 Active 10 mg RECTAL DAILY PRN bisacodyL [Dulcolax] Med 11/18/19 21:24 Active 5 mg PO DAILY PRN lisinopriL [Prinivil] Med 11/19/19 09:00 Active 5 mg PO DAILY Peripheral IV Insertion Adult [OM.PC] Routine Oth 11/18/19 17:13 Ordered Code Status [Resuscitation Status] Routine Resus Stat 11/19/19 00:23 Ordered Medication Orders Acetaminophen (Tylenol) 650 mg PO BEDTIME GRACE Acetaminophen (Tylenol) 650 mg PO Q6H PRN PRN Reason: Pain Last Admin: 11/19/19 00:47 Dose: 650 mg Documented by: NATHANIEL Aspirin (Halfprin) 81 mg PO DAILY [facility] Last Admin: 11/19/19 08:37 Dose: 81 mg Documented by: BELKIS Bisacodyl (Dulcolax) 5 mg PO DAILY PRN PRN Reason: Constipation Bisacodyl (Dulcolax) 10 mg RECTAL DAILY PRN PRN Reason: Constipation Carbidopa/Levodopa (Sinemet 25-100 Mg) 1 tab PO TID [facility] Last Admin: 11/19/19 08:36 Dose: 1 tab Documented by: Admin: 11/19/19 00:39 Dose: 1 tab Documented by: NATHANIEL Cholecalciferol (Vitamin D3) 50 mcg PO DAILY [facility] Last Admin: 11/19/19 08:36 Dose: 50 mcg Documented by: BELKIS Cyanocobalamin (Vitamin B12) 1,000 mcg IM Q30D [facility] Gabapentin (Neurontin) 100 mg PO BID [facility] Last Admin: 11/19/19 08:37 Dose: 100 mg Documented by: Admin: 11/19/19 00:38 Dose: 100 mg Documented by: NATHANIEL Sodium Chloride (Normal Saline) 100 mls @ 125 mls/hr IV ASDIRECTED [facility] Last Admin: 11/18/19 19:51 Dose: 125 mls/hr Documented by: RILEY Lactated Ringer's (Ringers, Lactated) 1,000 mls @ 50 mls/hr IV ASDIRECTED [facility] Last Admin: 11/19/19 01:23 Dose: 50 mls/hr Documented by: RILEY Lisinopril (Prinivil) 5 mg PO DAILY [facility] Last Admin: 11/19/19 08:37 Dose: 5 mg Documented by: BELKIS Nitroglycerin (Nitrostat) 0.4 mg SL Q5M PRN PRN Reason: Chest Pain Non-Formulary Medication (Emollient Combination No.40 [Cetaphil]) 1 applic TOP BID [facility] Non-Formulary Medication (Ipratropium [place]) 2 spray NASBOTH DAILY [facility]ACE Senna/Docusate Sodium (Senna Plus) 1 tab PO DAILY PRN PRN Reason: Constipation Senna/Docusate Sodium (Senna Plus) 1 tab PO BID [facility] Last Admin: 11/19/19 08:37 Dose: 1 tab Documented by: BELKIS Simvastatin (Zocor) 40 mg PO BEDTIME [facility] Sodium Chloride (Saline Flush) 10 ml FLUSH Q8HR PRN PRN Reason: keep vein open Last Admin: 11/18/19 16:25 Dose: 10 ml Documented by: LISSETTE Tamsulosin HCl (Flomax) 0.4 mg PO BEDTIME [facility] Assessment/Plan Comment:: History of present illness Alexandre is a pleasant 84-year-old gentleman that was admitted into inpatient status through the ED for possible systemic urinary tract infection. Patient is a resident of a local long-term care center here in [place] and I was notified yesterday of a temperature I was notified yesterday from ID staff that the patient had chills, diaphoresis with a temperature 100.7. I had initially desired telehealth medicine however senior care protocols would not allow computer in bedside room therefore prompting ED evaluation. Does have longstanding suprapubic catheter secondary to urinary retention. ED work-up/pertinent findings WBC, 10.5, neutrophilia 80%, CRP 9.1 Lactate 1.2, glucose 133 BUN/creatinine, 32/1.31 UA trace ketones, moderate leukocytes, semi-packed WBC, few granular, many bacteria Blood/Urine cultures obtained Covid 19 Neg Hospital course to date Patient was given one-time ciprofloxacin on admission, nurses reported fever last night 101 with ongoing chills, MAP 94. Primary hospital problems Suspect urinary tract infection, suspect E. coli, continue ciprofloxacin Chronic/stable problems HFpEF; diastolic, chronic, ACEIl 5 mg daily Coronary artery disease, low dose ASA Hypertension, benign, On lisinopril 5 mg daily Peripheral vascular disease Hyperlipidemia, Statin BPH with urinary retention, DC flomax 2/2 suprapubic catheter Parkinson's disease, Sinemet 25-100 mg TID Chronic constipationtylenol 650 mg at HS, gabapentin 100 mg BID Chronic pain syndrome, Vit B12 deficiency Disposition/overall plan --Reordered ciprofloxacin --Add PPI since chronic ASA therapy and age --Add procalcitonin guide ABX de-escalation therapy since physical exam and labs are not overwhelming concerning --Continue Flomax as patient has suprapubic catheter --DVT LMWH --Monitor for ongoing signs of systemic complications such as repeated fevers, reducing blood pressure/map, altered mental status. Blood/Urine cultures obtained - Mortality Measure Prognosis:: Good
[2019-11-19] MEDS: Ciprofloxacin in D5W 400 MG in Premix Bag 1 BAG IV SCH ×4 (11:27→23:19)
[2019-11-19] MEDS: Enoxaparin 30 MG/0.3 ML Syringe SUBCUT SCH (11:27)
[2019-11-19] MEDS: IPRATROPIUM BROMIDE 0.06% NASBOTH SCH (14:22)
[2019-11-19] MEDS: Sodium Chloride 0.9% 10 ML Syringe FLUSH PRN (20:27)
[2019-11-19] MEDS: Acetaminophen 325 MG Tab PO SCH (20:28)
[2019-11-19] MEDS: Simvastatin 20 MG Tab PO SCH (20:29)
[2019-11-19] MEDS: CETAPHIL MOISTURIZING TOP SCH (20:30)
[2019-11-19] MEDS ORDERED: Tamsulosin 0.4 MG Cap.ER PO SCH (21:00)
[2019-11-20] MEDS: Gabapentin 100 MG Cap PO SCH ×2 (08:49→20:18)
[2019-11-20] MEDS: Omeprazole 20 MG Cap.CR PO SCH (08:49)
[2019-11-20] MEDS: Cholecalciferol (Vitamin D3) 25 MCG Tab PO SCH (08:49)
[2019-11-20] MEDS: Lisinopril 5 MG Tab PO SCH (08:50)
[2019-11-20] MEDS: Aspirin 81 MG Tab.EC PO SCH (08:50)
[2019-11-20] MEDS: Carbidopa/Levodopa 25-100 MG Tab PO SCH ×3 (08:50→20:17)
[2019-11-20] MEDS: IPRATROPIUM BROMIDE 0.06% NASBOTH SCH (08:56)
[2019-11-20] MEDS: CETAPHIL MOISTURIZING TOP SCH ×2 (08:56→20:22)
[2019-11-20] MEDS: Enoxaparin 30 MG/0.3 ML Syringe SUBCUT SCH (11:11)
[2019-11-20] MEDS: Ciprofloxacin in D5W 400 MG in Premix Bag 1 BAG IV SCH ×4 (11:15→22:13)
[2019-11-20] MEDS: Sodium Chloride 0.9% 100 ML IV SCH (11:17)
[2019-11-20] MEDS: Acetaminophen 325 MG Tab PO PRN (14:37)
--- NOTE | 2019-11-20 14:58 | PCM.PN ---
- General Info Date of Service: 11/20/19 Functional Status: Reports: Pain Controlled, Tolerating Diet, Urinating. Denies: Ambulating, New Symptoms - Review of Systems General: Reports: Fatigue, Malaise. Denies: Fever, Chills, Night Sweats Pulmonary: Reports: No Symptoms Cardiovascular: Reports: No Symptoms Gastrointestinal: Denies: Abdominal Pain Genitourinary: Reports: Retention, Other (Suprapubic catheter). Denies: Dysuria, Hematuria Skin: Reports: Dryness Neurological: Denies: Confusion Psychiatric: Denies: Confusion - Patient Data Vitals - Most Recent: Last Vital Signs Temp 98.5 F 11/20/19 14:31 Pulse 53 L 11/20/19 14:31 Resp 16 11/20/19 14:31 BP 101/47 L 11/20/19 14:31 Pulse Ox 97 11/20/19 14:31 Weight - Most Recent: 160 lb I&O - Last 24 Hours: Intake & Output 11/19/19 11/20/19 11/20/19 22:59 06:59 14:59 Intake Total 3220 730 150 Output Total 1000 400 Balance 2220 730 -250 Lab Results Last 24 Hours: Laboratory Results - last 24 hr 11/19/19 11/20/19 11/20/19 Range/Units 07:24 07:45 07:45 WBC 6.56 (5.00-10.00) 10^3/uL RBC 3.61 L (4.50-6.00) 10^6/uL Hgb 10.4 L (13.0-17.0) g/dL Hct 32.8 L (40.0-52.0) % MCV 90.9 (82.0-92.0) fL MCH 28.8 (27.0-31.0) pg MCHC 31.7 L (32.0-36.0) g/dL RDW 14.9 H (11.5-14.5) % Plt Count 178 (150-400) 10^3/uL MPV 11.3 H (7.4-10.4) fL Immature Gran % (Auto) 0.2 (0.0-5.0) % Neut % (Auto) 71.3 H (50.0-70.0) % Lymph % (Auto) 16.3 L (20.0-40.0) % [place] % (Auto) 11.1 H (2.0-8.0) % Eos % (Auto) 0.8 L (1.0-3.0) % Baso % (Auto) 0.3 (0.0-1.0) % Neut # (Auto) 4.68 (2.50-7.00) 10^3/uL Lymph # (Auto) 1.07 (1.00-4.00) 10^3/uL [place] # (Auto) 0.73 (0.10-0.80) 10^3/uL Eos # (Auto) 0.05 L (0.10-0.30) 10^3/uL Baso # (Auto) 0.02 (0.00-0.10) 10^3/uL Immature Gran # (Auto) 0.01 (0.00-0.50) 10^3/uL Sodium 143 (136-145) mmol/L Potassium 4.0 (3.3-5.3) mmol/L Chloride 106 (98-115) mmol/L Carbon Dioxide 26.0 (21.0-32.0) mmol/L Anion Gap 15.0 (5-15) mmol/L BUN 25 (6-25) mg/dL Creatinine 1.17 (0.51-1.17) mg/dL Est Cr Clr Drug Dosing 42.41 mL/min Estimated GFR (MDRD) 59 mL/min Glucose 101 H (75 - 99) mg/dL Calcium 7.7 L (8.7-10.3) mg/dL Procalcitonin 1.47 H (<0.10) ng/mL [place] Results Last 24 Hours: Microbiology 11/19/19 01:30 Miscellaneous Reference Culture - Preliminary Wound - Suprapubic Staphylococcus Aureus Gram Stain - Final 11/18/19 17:58 Bacterial ID and Susceptibility - Preliminary Urine Gram Negative Rods 11/18/19 18:24 Blood Culture - Preliminary Blood - Arm, Right Klebsiella Pneumoniae 11/18/19 17:58 Urine Culture - Final Urine, Suprapubic Bladder Asp Med Orders - Current: Current Medications Acetaminophen (Tylenol) 650 mg PO BEDTIME GRACE Last Admin: 11/19/19 20:28 Dose: 650 mg Documented by: Acetaminophen (Tylenol) 650 mg PO Q6H PRN PRN Reason: Pain Last Admin: 11/20/19 14:37 Dose: 650 mg Documented by: Aspirin (Halfprin) 81 mg PO DAILY [facility] Last Admin: 11/20/19 08:50 Dose: 81 mg Documented by: Bisacodyl (Dulcolax) 5 mg PO DAILY PRN PRN Reason: Constipation Bisacodyl (Dulcolax) 10 mg RECTAL DAILY PRN PRN Reason: Constipation Carbidopa/Levodopa (Sinemet 25-100 Mg) 1 tab PO TID [facility] Last Admin: 11/20/19 13:08 Dose: 1 tab Documented by: Cholecalciferol (Vitamin D3) 50 mcg PO DAILY [facility] Last Admin: 11/20/19 08:49 Dose: 50 mcg Documented by: Cyanocobalamin (Vitamin B12) 1,000 mcg IM Q30D [facility] Enoxaparin Sodium (Lovenox) 30 mg SUBCUT Q24H [facility] Last Admin: 11/20/19 11:11 Dose: 30 mg Documented by: Gabapentin (Neurontin) 100 mg PO BID [facility] Last Admin: 11/20/19 08:49 Dose: 100 mg Documented by: Sodium Chloride (Normal Saline) 100 mls @ 125 mls/hr IV ASDIRECTED [facility] Last Admin: 11/20/19 11:17 Dose: 125 mls/hr Documented by: Lactated Ringer's (Ringers, Lactated) 1,000 mls @ 50 mls/hr IV ASDIRECTED [facility] Last Admin: 11/19/19 20:26 Dose: 50 mls/hr Documented by: Ciprofloxacin/Dextrose 400 mg/ (Premix) 200 mls @ 200 mls/hr IV Q12H [facility] Last Admin: 11/20/19 11:15 Dose: 200 mls/hr Documented by: Lisinopril (Prinivil) 5 mg PO DAILY [facility] Last Admin: 11/20/19 08:50 Dose: 5 mg Documented by: Nitroglycerin (Nitrostat) 0.4 mg SL Q5M PRN PRN Reason: Chest Pain Ptom Cetaphil (Moisturizing Lotion) 1 applic TOP BID [facility] Last Admin: 11/20/19 08:56 Dose: 1 applic Documented by: Ptom Ipratropium [place] Nasal Solution 0.06% 2 spray NASBOTH DAILY [facility] Last Admin: 11/20/19 08:56 Dose: 2 spray Documented by: Omeprazole (Omeprazole) 20 mg PO ACBREAKFAST [facility] Last Admin: 11/20/19 08:49 Dose: 20 mg Documented by: Senna/Docusate Sodium (Senna Plus) 1 tab PO DAILY PRN PRN Reason: Constipation Senna/Docusate Sodium (Senna Plus) 1 tab PO BID [facility] Last Admin: 11/20/19 08:50 Dose: 1 tab Documented by: Simvastatin (Zocor) 40 mg PO BEDTIME [facility] Last Admin: 11/19/19 20:29 Dose: 40 mg Documented by: Sodium Chloride (Saline Flush) 10 ml FLUSH Q8HR PRN PRN Reason: keep vein open Last Admin: 11/19/19 20:27 Dose: 10 ml Documented by: Discontinued Medications Carbidopa/Levodopa (Sinemet 25-100 Mg) 1 tab PO TID [facility] Sodium Chloride (Normal Saline) 1,000 mls @ 999 mls/hr IV .BOLUS ONE Stop: 11/18/19 17:50 Last Admin: 11/18/19 16:50 Dose: 999 mls/hr Documented by: Ciprofloxacin/Dextrose 400 mg/ (Premix) 200 mls @ 200 mls/hr IV ONETIME ONE Stop: 11/18/19 19:19 Last Admin: 11/18/19 19:52 Dose: 200 mls/hr Documented by: Tamsulosin HCl (Flomax) 0.4 mg PO BEDTIME GRACE - Exam General: Alert, Oriented, Cooperative, No Acute Distress Neck: Supple Lungs: Clear to Auscultation, Normal Respiratory Effort Cardiovascular: Regular Rate, Regular Rhythm GI/Abdominal Exam: Soft Extremities: No Pedal Edema Peripheral Pulses: 2+: Radial (L), Radial (R) Skin: Warm Neurological: No New Focal Deficit Psy/Mental Status: Alert, Normal Affect, Normal Mood Sepsis Event Note - Evaluation Sepsis Screening Result: No Definite Risk Current Stage of Sepsis: Sepsis Possible Source of Sepsis: Genitourinary - Focused Exam Sepsis Event Note Statement: Focused Sepsis Exam Completed Vital Signs: Vital Signs Temp Pulse Resp BP BP BP Pulse Ox 11/20/19 14:31 98.5 F 53 L 16 101/47 L 97 11/20/19 10:33 98.5 F 61 16 95/54 L 95 11/20/19 08:50 120/61 11/20/19 07:00 99.0 F 60 20 101/57 L 94 L 11/20/19 02:52 98.6 F 72 20 146/61 H 94 L Respiratory Effort Without Exertion: Abdominal Breathing Capillary Refill, Detail: Greater than (>) 2 Seconds Pulse Description: 3+ Bounding Peripheral Pulse Location: Radial Skin Exam (Focused Sepsis): [place] Date Exam was Performed: 11/21/19 Time Exam was Performed: 09:48 - Problem List Review Problem List Initiated/Reviewed/Updated: Yes - My Orders Last 24 Hours: My Active Orders 11/20/19 07:30 Omeprazole 20 mg PO ACBREAKFAST - Plan Plan:: History of present illness Alexandre is a pleasant 84-year-old gentleman that was admitted into inpatient status through the ED for possible systemic urinary tract infection. Patient is a resident of a local long-term care center here in [place] and I was notified yesterday of a temperature I was notified yesterday from [facility] staff that the patient had chills, diaphoresis with a temperature 100.7. I had initially desired telehealth medicine however [facility] protocols would not allow computer in bedside room therefore prompting ED evaluation. Does have longstanding suprapubic catheter secondary to urinary retention. ED work-up/pertinent findings WBC, 10.5, neutrophilia 80%, CRP 9.1 Lactate 1.2, glucose 133 BUN/creatinine, 32/1.31 UA trace ketones, moderate leukocytes, semi-packed WBC, few granular, many bacteria Blood/Urine cultures obtained Covid 19 Neg Hospital course Patient was given one-time ciprofloxacin on admission, nurses reported fever last night 101 with ongoing chills, MAP 94. November 19 Blood cultures returned in the middle night gram-negative rods, no fever, blood pressure adequate, no chills/rigors Primary hospital problems Sepsis/bacteremia health care-associated, community-onset as he was POA, some concern for ESBL however appears to be clinically responding likely genitourinary source, gram-negative rods possible E. coli, continue ciprofloxacin. Concern for the need for pseudomonal coverage however allergic to penicillins and cephalosporins Chronic/stable problems HFpEF; diastolic, chronic, ACEI 5 mg daily Coronary artery disease, low dose ASA Hypertension, benign, On lisinopril 5 mg daily Peripheral vascular disease Hyperlipidemia, Statin BPH with urinary retention, DC flomax 2/2 suprapubic catheter Parkinson's disease, Sinemet 25-100 mg TID Chronic constipationtylenol 650 mg at HS, gabapentin 100 mg BID Chronic pain syndrome, Vit B12 deficiency Disposition/overall plan --Monitor closely for mental status, shortness of breath, sudden respiratory failure or low blood pressure. --cont with ciprofloxacin to cover GNR since PCN/cephlasporin allergy, reluctant to add pseudomonal coverage due to allergy. Staff will consult with spouse regarding allergy, --Requested PCR testing through [facility] --DVT LMWH
[2019-11-20] MEDS: Lactated Ringers 1,000 ML IV SCH (19:50)
[2019-11-20] MEDS: Acetaminophen 325 MG Tab PO SCH (20:18)
[2019-11-20] MEDS: Simvastatin 20 MG Tab PO SCH (20:18)
[2019-11-20] MEDS ORDERED: Ciprofloxacin 500 MG Tab PO ONE (23:07)
[2019-11-20] MEDS ORDERED: hydrOXYzine HCl 25 MG Tab PO ONE (23:12)
[2019-11-20] MEDS ORDERED: Cetirizine 10 MG Tab PO ONE (23:13)
[2019-11-21] MEDS ORDERED: Sodium Chloride 0.9% 10 ML Syringe FLUSH PRN (01:10)
[2019-11-21] MEDS: Omeprazole 20 MG Cap.CR PO SCH (06:32)
[2019-11-21] MEDS: IPRATROPIUM BROMIDE 0.06% NASBOTH SCH (08:20)
[2019-11-21] MEDS: Lisinopril 5 MG Tab PO SCH (08:21)
[2019-11-21] MEDS: CETAPHIL MOISTURIZING TOP SCH ×2 (08:21→20:07)
[2019-11-21] MEDS: Cholecalciferol (Vitamin D3) 25 MCG Tab PO SCH (08:21)
[2019-11-21] MEDS: Gabapentin 100 MG Cap PO SCH ×2 (08:22→20:06)
[2019-11-21] MEDS: Carbidopa/Levodopa 25-100 MG Tab PO SCH ×3 (08:22→20:06)
[2019-11-21] MEDS: Aspirin 81 MG Tab.EC PO SCH (08:22)
--- NOTE | 2019-11-21 10:00 | PCM.PN ---
- General Info Date of Service: 11/21/19 Functional Status: Reports: Pain Controlled, Tolerating Diet, Ambulating - Review of Systems General: Denies: Fever, Weakness, Fatigue, Malaise, Chills, Night Sweats HEENT: Reports: No Symptoms Pulmonary: Reports: No Symptoms Cardiovascular: Reports: No Symptoms Gastrointestinal: Reports: No Symptoms Genitourinary: Denies: Burning, Pain, Retention (Suprapubic catheter), Flank Pain Musculoskeletal: Reports: No Symptoms Skin: Denies: Pallor, Pruritis (Pruritus resolved), Rash Neurological: Reports: Difficulty Walking. Denies: Confusion Psychiatric: Reports: No Symptoms - Patient Data Vitals - Most Recent: Last Vital Signs Temp 98.8 F 11/21/19 07:00 Pulse 60 11/21/19 07:00 Resp 16 11/21/19 07:00 BP 125/61 11/21/19 08:21 Pulse Ox 96 11/21/19 07:00 Weight - Most Recent: 160 lb I&O - Last 24 Hours: Intake & Output 11/20/19 11/21/19 11/21/19 22:59 06:59 14:59 Intake Total 1610 338 200 Output Total 400 800 Balance 1210 338 -600 [place] Results Last 24 Hours: Microbiology 11/18/19 16:25 Blood Culture - Preliminary Blood - Arm, Left 11/19/19 01:30 Miscellaneous Reference Culture - Preliminary Wound - Suprapubic Staphylococcus Aureus Gram Stain - Final 11/18/19 17:58 Bacterial ID and Susceptibility - Preliminary Urine Gram Negative Rods 11/18/19 18:24 Blood Culture - Preliminary Blood - Arm, Right Klebsiella Pneumoniae Med Orders - Current: Current Medications Acetaminophen (Tylenol) 650 mg PO BEDTIME [facility] Last Admin: 11/20/19 20:18 Dose: 650 mg Documented by: Acetaminophen (Tylenol) 650 mg PO Q6H PRN PRN Reason: Pain Last Admin: 11/20/19 14:37 Dose: 650 mg Documented by: Aspirin (Halfprin) 81 mg PO DAILY [facility] Last Admin: 11/21/19 08:22 Dose: 81 mg Documented by: Bisacodyl (Dulcolax) 5 mg PO DAILY PRN PRN Reason: Constipation Bisacodyl (Dulcolax) 10 mg RECTAL DAILY PRN PRN Reason: Constipation Carbidopa/Levodopa (Sinemet 25-100 Mg) 1 tab PO TID [facility] Last Admin: 11/21/19 08:22 Dose: 1 tab Documented by: Cholecalciferol (Vitamin D3) 50 mcg PO DAILY [facility] Last Admin: 11/21/19 08:21 Dose: 50 mcg Documented by: Cyanocobalamin (Vitamin B12) 1,000 mcg IM Q30D [facility] Enoxaparin Sodium (Lovenox) 30 mg SUBCUT Q24H [facility] Last Admin: 11/20/19 11:11 Dose: 30 mg Documented by: Gabapentin (Neurontin) 100 mg PO BID [facility] Last Admin: 11/21/19 08:22 Dose: 100 mg Documented by: Sodium Chloride (Normal Saline) 100 mls @ 125 mls/hr IV ASDIRECTED [facility] Last Admin: 11/20/19 11:17 Dose: 125 mls/hr Documented by: Lisinopril (Prinivil) 5 mg PO DAILY [facility] Last Admin: 11/21/19 08:21 Dose: 5 mg Documented by: Nitroglycerin (Nitrostat) 0.4 mg SL Q5M PRN PRN Reason: Chest Pain Ptom Cetaphil (Moisturizing Lotion) 1 applic TOP BID [facility] Last Admin: 11/21/19 08:21 Dose: 1 applic Documented by: Ptom Ipratropium [place] Nasal Solution 0.06% 2 spray NASBOTH DAILY [facility] Last Admin: 11/21/19 08:20 Dose: 2 spray Documented by: Omeprazole (Omeprazole) 20 mg PO ACBREAKFAST [facility] Last Admin: 11/21/19 06:32 Dose: 20 mg Documented by: Senna/Docusate Sodium (Senna Plus) 1 tab PO DAILY PRN PRN Reason: Constipation Senna/Docusate Sodium (Senna Plus) 1 tab PO BID [facility] Last Admin: 11/21/19 08:21 Dose: 1 tab Documented by: Simvastatin (Zocor) 40 mg PO BEDTIME [facility] Last Admin: 11/20/19 20:18 Dose: 40 mg Documented by: Sodium Chloride (Saline Flush) 10 ml FLUSH Q8HR PRN PRN Reason: keep vein open Last Admin: 11/19/19 20:27 Dose: 10 ml Documented by: Sodium Chloride (Saline Flush) 10 ml FLUSH Q8HR PRN PRN Reason: keep vein open Discontinued Medications Carbidopa/Levodopa (Sinemet 25-100 Mg) 1 tab PO TID [facility] Cetirizine HCl (Zyrtec) 10 mg PO ONETIME ONE Stop: 11/20/19 23:14 Last Admin: 11/20/19 23:39 Dose: 10 mg Documented by: Ciprofloxacin (Ciprofloxacin Hcl) 500 mg PO ONETIME ONE Stop: 11/20/19 23:08 Last Admin: 11/20/19 23:39 Dose: 500 mg Documented by: Hydroxyzine HCl (Atarax) 25 mg PO ONETIME ONE Stop: 11/20/19 23:13 Last Admin: 11/20/19 23:39 Dose: 25 mg Documented by: Sodium Chloride (Normal Saline) 1,000 mls @ 999 mls/hr IV .BOLUS ONE Stop: 11/18/19 17:50 Last Admin: 11/18/19 16:50 Dose: 999 mls/hr Documented by: Ciprofloxacin/Dextrose 400 mg/ (Premix) 200 mls @ 200 mls/hr IV ONETIME ONE Stop: 11/18/19 19:19 Last Admin: 11/18/19 19:52 Dose: 200 mls/hr Documented by: Lactated Ringer's (Ringers, Lactated) 1,000 mls @ 50 mls/hr IV ASDIRECTED [facility] Last Admin: 11/20/19 19:50 Dose: 50 mls/hr Documented by: Ciprofloxacin/Dextrose 400 mg/ (Premix) 200 mls @ 200 mls/hr IV Q12H [facility] Last Admin: 11/20/19 22:13 Dose: 200 mls/hr Documented by: Tamsulosin HCl (Flomax) 0.4 mg PO BEDTIME [facility]ACE - Exam Quality Assessment: DVT Prophylaxis. No: Supplemental Oxygen General: Alert, Oriented, Cooperative Neck: Supple Lungs: Clear to Auscultation, Normal Respiratory Effort Cardiovascular: Regular Rate, Regular Rhythm GI/Abdominal Exam: Soft, Other (Slightly decreased bowel tones) (Male) Exam: Deferred Extremities: No: Pedal Edema, Slow Capillary Refill Peripheral Pulses: 2+: Radial (L), Radial (R) Skin: Warm, Dry, Intact. No: Rash Neurological: Normal Gait Psy/Mental Status: Alert, Normal Affect, Normal Mood Sepsis Event Note - Evaluation Sepsis Screening Result: No Definite Risk - Focused Exam Vital Signs: Vital Signs Temp Pulse Resp BP BP BP Pulse Ox 11/21/19 08:21 125/61 11/21/19 07:00 98.8 F 60 16 112/59 L 96 11/21/19 03:00 98.8 F 60 20 112/56 L 94 L 11/20/19 23:00 98.1 F 65 20 110/60 95 Date Exam was Performed: 11/21/19 Time Exam was Performed: 11:25 - Problem List Review Problem List Initiated/Reviewed/Updated: Yes - My Orders Last 24 Hours: My Active Orders 11/21/19 01:10 Sodium Chloride 0.9% [Saline Flush] 10 ml FLUSH Q8HR PRN Convert IV to Saline Lock [OM.PC] Routine 11/21/19 09:46 C-REACTIVE PROTEIN [CHEM] Routine CBC WITH AUTO DIFF [HEME] Routine 11/21/19 09:47 BASIC METABOLIC PANEL,BMP [CHEM] Routine - Plan Plan:: History of present illness Alexandre is a pleasant 84-year-old gentleman that was admitted into inpatient status through the ED for possible systemic urinary tract infection. Patient is a resident of a local long-term care center here in [place] and I was notified yesterday of a temperature I was notified yesterday from [facility] staff that the patient had chills, diaphoresis with a temperature 100.7. I had initially desired telehealth medicine however [facility] protocols would not allow computer in bedside room therefore prompting ED evaluation. Does have longstanding suprapubic catheter secondary to urinary retention. ED work-up/pertinent findings WBC, 10.5, neutrophilia 80%, CRP 9.1 Lactate 1.2, glucose 133 BUN/creatinine, 32/1.31 UA trace ketones, moderate leukocytes, semi-packed WBC, few granular, many bacteria Blood/Urine cultures obtained Covid 19 Neg Hospital course Patient was given one-time ciprofloxacin on admission, nurses reported fever la st night 101 with ongoing chills, MAP 94. November 19: Blood cultures returned in the middle night gram-negative rods, no fever, blood pressure adequate, no chills/rigors November 20: Initial BC return Klebsiella Pneumoniae, likely genitourinary source sensitivities pending. Midnight dose last night of ciprofloxacin appears patient had systemic itching with local IV erythremia, held off on IV Cipro gave oral 500mg Cipro x1 along with hydroxyzine with resolution of itching, IV site inspected with no phlebitis or erythema noted, afebrile x48h, MAP good, no chills/rigors, saline locked IV fluids last night. Patient more conversing, eating, ambulating on floor this morning during rounds, says starting to feel better Primary hospital problems --Sepsis/bacteremia health care-associated, community-onset as he was POA, some concern for ESBL however appears to be clinically responding with decreasing WBC and no neutrophilia, although CRP elevated--lagging indicator 2/2 sepsis. Initial BC with GNR--Klebsiella Pneumoniae, likely genitourinary source--sensitivities pending, definitive abx with fluoroquinilone therapy. Restart ciprofloxacin IV. Less concern today for need of pseudomonal coverage. Chronic/stable problems HFpEF; diastolic, chronic, ACEI 5 mg daily Coronary artery disease, low dose ASA Hypertension, benign, On lisinopril 5 mg daily Peripheral vascular disease Hyperlipidemia, Statin BPH with urinary retention, DC flomax 2/2 suprapubic catheter Parkinson's disease, Sinemet 25-100 mg TID Chronic constipationtylenol 650 mg at HS, gabapentin 100 mg BID Chronic pain syndrome, Vit B12 deficiency Disposition/overall plan --Patient meets ongoing inpatient criteria --Restart ciprofloxacin IV, --continue with monitoring for altered mental status shortness of breath, respiratory failure or low blood pressure. --Ambulate halls 2-3 times today, up in chair while in room --Requested PCR testing through [facility] --DVT LMWH until increased in ambulation
[2019-11-21 10:40] LABS: ANION GAP 13.7 mmol/L (5-15)
[2019-11-21] MEDS: Enoxaparin 30 MG/0.3 ML Syringe SUBCUT SCH (10:48)
[2019-11-21] MEDS ORDERED: Ciprofloxacin in D5W 400 MG in Premix Bag 1 BAG IV SCH ×2 (12:15)
[2019-11-21] MEDS ORDERED: hydrOXYzine HCl 25 MG Tab PO SCH (12:15)
[2019-11-21] MEDS: Sodium Chloride 0.9% 10 ML Syringe FLUSH PRN (12:34)
[2019-11-21] MEDS: Simvastatin 20 MG Tab PO SCH (20:05)
[2019-11-21] MEDS: Ciprofloxacin 500 MG Tab PO SCH (20:05)
[2019-11-21] MEDS: Acetaminophen 325 MG Tab PO SCH (20:06)
[2019-11-22] MEDS: Omeprazole 20 MG Cap.CR PO SCH (06:50)
[2019-11-22 06:53] VITALS: PULSE 60
[2019-11-22] MEDS: Ciprofloxacin 500 MG Tab PO SCH (08:46)
[2019-11-22] MEDS: Aspirin 81 MG Tab.EC PO SCH (08:47)
[2019-11-22] MEDS: Lisinopril 5 MG Tab PO SCH (08:47)
[2019-11-22] MEDS: Gabapentin 100 MG Cap PO SCH (08:47)
[2019-11-22] MEDS: Carbidopa/Levodopa 25-100 MG Tab PO SCH (08:47)
[2019-11-22 08:48] VITALS: BP 130/59
[2019-11-22] MEDS: IPRATROPIUM BROMIDE 0.06% NASBOTH SCH (08:50)
[2019-11-22] MEDS: CETAPHIL MOISTURIZING TOP SCH (08:50)
[2019-11-22] MEDS: Cholecalciferol (Vitamin D3) 25 MCG Tab PO SCH (09:20)
--- NOTE | 2019-11-22 09:29 | PCM.DCSUM1 ---
Discharge Summary - Hospital Course Diagnosis: Stroke: No - Discharge Data Discharge Date: 11/22/19 Discharge Disposition: DC/Tfer to SNF 03 Condition: Good - Referral to Home Health Primary Care Physician: Estevan Vance NP - Patient Instructions Diet: Usual Diet as Tolerated Diet, Other: 4-6 glasses water per day Activity: As Tolerated Driving: Do Not Drive Showering/Bathing: May Shower Notify Provider of: Fever, Nausea and/or Vomiting Other/Special Instructions: Monitor BP and Temp twice daily until he completes ciprofloxacin--Notify if fever or BP below 100. Increase fluids. He had sep sis, Klebsiella, still at risk for complications however not able to tolerate IV ciprofloxacin. If he starts having a fever, confusion or low blood pressure he will need immediate evaluation - Discharge Plan *PRESCRIPTION DRUG MONITORING PROGRAM REVIEWED*: Not Applicable *COPY OF PRESCRIPTION DRUG MONITORING REPORT IN PATIENT [place]ARREN: Not Applicable Prescriptions/Med Rec: Ciprofloxacin [Ciprofloxacin HCl] 500 mg PO BID #10 tablet Home Medications: Home Meds Acetaminophen [Tylenol] 650 mg PO BEDTIME 11/15/15 [History] Cholecalciferol (Vitamin D3) [D3-2000] 2,000 unit PO DAILY 11/15/15 [History] Nitroglycerin [Nitrostat] 0.4 mg SL Q5M PRN 11/15/15 [History] Simvastatin [Zocor] 40 mg PO BEDTIME 11/15/15 [History] Lisinopril 5 mg PO DAILY 01/02/17 [History] Aspirin [Halfprin] 81 mg PO DAILY 06/12/19 [History] Acetaminophen [Tylenol] 650 mg PO Q6H PRN 11/18/19 [History] Carbidopa/Levodopa [Carbidopa-Levodopa 25-100 Tab] 1 tab PO TID 11/18/19 [History] Cyanocobalamin (Vitamin B-12) [Cyanocobalamin Injection] 1 ml IM ASDIRECTED 11/18/19 [History] Emollient Combination No.40 [Cetaphil] 1 applic TOP BID 11/18/19 [History] Gabapentin [Neurontin] 100 mg PO BID 11/18/19 [History] Ipratropium [place] 2 spray NASBOTH DAILY 11/18/19 [History] Sennosides/Docusate Sodium [Senna-S] 1 tab PO BID 11/18/19 [History] Sennosides/Docusate Sodium [Senna-S] 1 tab PO DAILY PRN 11/18/19 [History] bisacodyL [Bisacodyl] 5 mg PO DAILY PRN 11/18/19 [History] bisacodyL [Dulcolax] 10 mg RECTAL DAILY PRN 11/18/19 [History] Ciprofloxacin [Ciprofloxacin HCl] 500 mg PO BID #10 tablet 11/22/19 [Rx] Referrals: Lara Choe MD [Physician] - - Discharge Summary/Plan Comment DC Time >30 min.: Yes Discharge Summary/Plan Comment: Final diagnosis --Sepsis/bacteremia health care-associated, community-onset as was present on admission. Chronic/stable problems HFpEF; diastolic, chronic, ACEI 5 mg daily Coronary artery disease, low dose ASA Hypertension, benign, On lisinopril 5 mg daily Peripheral vascular disease Hyperlipidemia, Statin BPH with urinary retention, discontinued Flomax 2/2 suprapubic catheter Parkinson's disease, Sinemet 25-100 mg TID Chronic constipationtylenol 650 mg at HS, gabapentin 100 mg BID Chronic pain syndrome, Vit B12 deficiency History summary 84-year-old gentleman that was admitted into inpatient status through the ED for possible systemic urinary tract infection. Patient is a resident of a local long-term care center here in [place] and I was notified yesterday of a temperature I was notified yesterday from CT staff that the patient had chills, diaphoresis with a temperature 100.7. I had initially desired telehealth medicine however long-term protocols would not allow computer in bedside room therefore prompting ED evaluation. Does have longstanding suprapubic catheter secondary to urinary retention. ED work-up/pertinent findings WBC, 10.5, neutrophilia 80%, CRP 9.1 Lactate 1.2, glucose 133 BUN/creatinine, 32/1.31 UA trace ketones, moderate leukocytes, semi-packed WBC, few granular, many bacteria Blood/Urine cultures obtained Covid 19 Neg Hospital course. Patient was admitted with concerns of a complicated UTI as he does have a chronic indwelling suprapubic catheter and had recently been admitted 2 to 3 months ago for UTI sepsis in [place]. patient was given one-time ciprofloxacin on admission, nurses reported fever 101 with ongoing chills on into the first night however he never became hemodynamically compromising or septic shock. Clinically he responded to IV antibiotics and it was felt that he would likely respond to ciprofloxacin. White count came down to normal, he started feeling better, he did have some mild phlebitis with systemic periodic itching in which he was given H1 antihistamine and it resolved. However he cannot tolerate IVs so he was switched to orals with close monitoring. There was some concern of ESBL and the need for pseudomonal coverage so he was monitored very carefully. He is allergic to penicillin and ceftriaxone likely type I hypersensitivity to ceftriaxone. Penicillin allergy cannot be verified. November 19: Blood cultures returned in the middle night gram-negative rods, no fever, blood pressure adequate, no chills/rigors. November 20: Initial BC return Klebsiella Pneumoniae, likely genitourinary source sensitivities returned morning of discharge sensitive to ciprofloxacin. Midnight dose last night of ciprofloxacin appears patient had systemic itching with local IV erythremia, h eld off on IV Cipro gave oral 500mg Cipro x1 along with hydroxyzine with resolution of itching, IV site inspected with no phlebitis or erythema noted, afebrile x48h, MAP good, no chills/rigors, saline locked IV fluids last night. Patient more conversing, eating, ambulating on floor this morning during rounds, says starting to feel better. Requested PCR testing through [facility], Medication additions/changes/adjustments upon discharge Ciprofloxacin hydrochloride, 500 mg p.o. twice daily x5 days Flomax discontinued Disposition. on the morning of discharge the patient desired to go back to long-term care and since he could not tolerate IV ciprofloxacin and he had no signs of ongoing systemic symptoms. He is to increase his water intake, temperature and blood pressure twice daily until discontinue ciprofloxacin, monitor carefully for signs and symptoms of returning sepsis symptoms such as low blood pressure, altered mental status fever rigors and chills or nausea. - General Info Functional Status: Reports: Pain Controlled, Tolerating Diet, Ambulating, Urinating - Review of Systems General: Denies: Fever, Weakness, Fatigue, Malaise, Chills, Night Sweats HEENT: Reports: No Symptoms Pulmonary: Reports: No Symptoms Cardiovascular: Reports: No Symptoms Gastrointestinal: Denies: Abdominal Pain, Constipation, Decreased Appetite, Diarrhea, Nausea, Vomiting Genitourinary: Reports: No Symptoms, Other (supra pubic cath) Musculoskeletal: Reports: No Symptoms Skin: Reports: No Symptoms Neurological: Reports: No Symptoms Psychiatric: Reports: No Symptoms - Patient Data Vitals - Most Recent: Last Vital Signs Temp 98.3 F 11/22/19 06:52 Pulse 60 11/22/19 06:52 Resp 20 11/22/19 06:52 BP 130/59 L 11/22/19 08:47 Pulse Ox 95 11/22/19 06:52 Weight - Most Recent: 160 lb I&O - Last 24 hours: Intake & Output 11/21/19 11/22/19 11/22/19 22:59 06:59 14:59 Intake Total 1150 350 Output Total 450 200 Balance 700 150 Lab Results - Last 24 hrs: Laboratory Results - last 24 hr 11/21/19 11/21/19 Range/Units 10:15 10:15 WBC 5.01 (5.00-10.00) 10^3/uL RBC 4.16 L (4.50-6.00) 10^6/uL Hgb 11.8 L (13.0-17.0) g/dL Hct 38.0 L (40.0-52.0) % MCV 91.3 (82.0-92.0) fL MCH 28.4 (27.0-31.0) pg MCHC 31.1 L (32.0-36.0) g/dL RDW 14.7 H (11.5-14.5) % Plt Count 220 (150-400) 10^3/uL MPV 11.2 H (7.4-10.4) fL Immature Gran % (Auto) 0.4 (0.0-5.0) % Neut % (Auto) 62.6 (50.0-70.0) % Lymph % (Auto) 21.0 (20.0-40.0) % [place] % (Auto) 13.2 H (2.0-8.0) % Eos % (Auto) 2.2 (1.0-3.0) % Baso % (Auto) 0.6 (0.0-1.0) % Neut # (Auto) 3.14 (2.50-7.00) 10^3/uL Lymph # (Auto) 1.05 (1.00-4.00) 10^3/uL [place] # (Auto) 0.66 (0.10-0.80) 10^3/uL Eos # (Auto) 0.11 (0.10-0.30) 10^3/uL Baso # (Auto) 0.03 (0.00-0.10) 10^3/uL Immature Gran # (Auto) 0.02 (0.00-0.50) 10^3/uL Sodium 144 (136-145) mmol/L Potassium 3.9 (3.3-5.3) mmol/L Chloride 106 (98-115) mmol/L Carbon Dioxide 28.2 (21.0-32.0) mmol/L Anion Gap 13.7 (5-15) mmol/L BUN 22 (6-25) mg/dL Creatinine 1.23 H (0.51-1.17) mg/dL Est Cr Clr Drug Dosing 40.34 mL/min Estimated GFR (MDRD) 56 mL/min Glucose 91 (75 - 99) mg/dL Calcium 8.1 L (8.7-10.3) mg/dL C-Reactive Protein 9.3 H (0.0-0.9) mg/dL ARMIDA Results - Last 24 hrs: Microbiology 11/18/19 18:24 Blood Culture - Preliminary Blood - Arm, Right Klebsiella Pneumoniae 11/19/19 01:30 Miscellaneous Reference Culture - Preliminary Wound - Suprapubic Staphylococcus Aureus Diphtheroids Gram Stain - Final 11/18/19 17:58 Bacterial ID and Susceptibility - Preliminary Urine Klebsiella Pneumonia Ss Pneumo Med Orders - Current: Current Medications Acetaminophen (Tylenol) 650 mg PO BEDTIME [facility] Last Admin: 11/21/19 20:06 Dose: 650 mg Documented by: Acetaminophen (Tylenol) 650 mg PO Q6H PRN PRN Reason: Pain Last Admin: 11/20/19 14:37 Dose: 650 mg Documented by: Aspirin (Halfprin) 81 mg PO DAILY [facility] Last Admin: 11/22/19 08:47 Dose: 81 mg Documented by: Bisacodyl (Dulcolax) 5 mg PO DAILY PRN PRN Reason: Constipation Last Admin: 11/21/19 20:06 Dose: 5 mg Documented by: Bisacodyl (Dulcolax) 10 mg RECTAL DAILY PRN PRN Reason: Constipation Carbidopa/Levodopa (Sinemet 25-100 Mg) 1 tab PO TID [facility] Last Admin: 11/22/19 08:47 Dose: 1 tab Documented by: Cholecalciferol (Vitamin D3) 50 mcg PO DAILY [facility] Last Admin: 11/21/19 08:21 Dose: 50 mcg Documented by: Ciprofloxacin (Ciprofloxacin Hcl) 500 mg PO BID [facility] Last Admin: 11/22/19 08:46 Dose: 500 mg Documented by: Cyanocobalamin (Vitamin B12) 1,000 mcg IM Q30D [facility] Enoxaparin Sodium (Lovenox) 30 mg SUBCUT Q24H [facility] Last Admin: 11/21/19 10:48 Dose: 30 mg Documented by: Gabapentin (Neurontin) 100 mg PO BID [facility] Last Admin: 11/22/19 08:47 Dose: 100 mg Documented by: Lisinopril (Prinivil) 5 mg PO DAILY [facility] Last Admin: 11/22/19 08:47 Dose: 5 mg Documented by: Nitroglycerin (Nitrostat) 0.4 mg SL Q5M PRN PRN Reason: Chest Pain Ptom Cetaphil (Moisturizing Lotion) 1 applic TOP BID [facility] Last Admin: 11/22/19 08:50 Dose: 1 applic Documented by: Ptom Ipratropium [place] Nasal Solution 0.06% 2 spray NASBOTH DAILY [facility] Last Admin: 11/22/19 08:50 Dose: 2 spray Documented by: Omeprazole (Omeprazole) 20 mg PO ACBREAKFAST [facility] Last Admin: 11/22/19 06:50 Dose: 20 mg Documented by: Senna/Docusate Sodium (Senna Plus) 1 tab PO DAILY PRN PRN Reason: Constipation Senna/Docusate Sodium (Senna Plus) 1 tab PO BID [facility] Last Admin: 11/22/19 08:46 Dose: 1 tab Documented by: Simvastatin (Zocor) 40 mg PO BEDTIME [facility] Last Admin: 11/21/19 20:05 Dose: 40 mg Documented by: Sodium Chloride (Saline Flush) 10 ml FLUSH Q8HR PRN PRN Reason: keep vein open Last Admin: 11/21/19 12:34 Dose: 10 ml Documented by: Discontinued Medications Carbidopa/Levodopa (Sinemet 25-100 Mg) 1 tab PO TID [facility] Cetirizine HCl (Zyrtec) 10 mg PO ONETIME ONE Stop: 11/20/19 23:14 Last Admin: 11/20/19 23:39 Dose: 10 mg Documented by: Ciprofloxacin (Ciprofloxacin Hcl) 500 mg PO ONETIME ONE Stop: 11/20/19 23:08 Last Admin: 11/20/19 23:39 Dose: 500 mg Documented by: Hydroxyzine HCl (Atarax) 25 mg PO ONETIME ONE Stop: 11/20/19 23:13 Last Admin: 11/20/19 23:39 Dose: 25 mg Documented by: Hydroxyzine HCl (Atarax) 25 mg PO Q12H [facility] Last Admin: 11/21/19 12:28 Dose: 25 mg Documented by: Sodium Chloride (Normal Saline) 1,000 mls @ 999 mls/hr IV .BOLUS ONE Stop: 11/18/19 17:50 Last Admin: 11/18/19 16:50 Dose: 999 mls/hr Documented by: Ciprofloxacin/Dextrose 400 mg/ (Premix) 200 mls @ 200 mls/hr IV ONETIME ONE Stop: 11/18/19 19:19 Last Admin: 11/18/19 19:52 Dose: 200 mls/hr Documented by: Sodium Chloride (Normal Saline) 100 mls @ 125 mls/hr IV ASDIRECTED [facility] Last Admin: 11/20/19 11:17 Dose: 125 mls/hr Documented by: Lactated Ringer's (Ringers, Lactated) 1,000 mls @ 50 mls/hr IV ASDIRECTED [facility] Last Admin: 11/20/19 19:50 Dose: 50 mls/hr Documented by: Ciprofloxacin/Dextrose 400 mg/ (Premix) 200 mls @ 200 mls/hr IV Q12H [facility] Last Admin: 11/20/19 22:13 Dose: 200 mls/hr Documented by: Ciprofloxacin/Dextrose 400 mg/ (Premix) 200 mls @ 200 mls/hr IV Q12H [facility] Last Admin: 11/21/19 12:35 Dose: 200 mls/hr Documented by: Sodium Chloride (Saline Flush) 10 ml FLUSH Q8HR PRN PRN Reason: keep vein open Tamsulosin HCl (Flomax) 0.4 mg PO BEDTIME [facility] - Exam Quality Assessment: Denies: Supplemental Oxygen General: Reports: Alert, Oriented, Cooperative Lungs: Reports: Clear to Auscultation, Normal Respiratory Effort Cardiovascular: Reports: Regular Rate, Regular Rhythm Back Exam: Denies: CVA Tenderness (L), CVA Tenderness (R) Extremities: Normal Capillary Refill Psy/Mental Status: Reports: Alert. Denies: Anxious
[2019-11-22] MEDS: Enoxaparin 30 MG/0.3 ML Syringe SUBCUT SCH (10:21)
[2019-12-12] MEDS ORDERED: Cyanocobalamin (Vitamin B12) 1,000 MCG/ML SDV IM SCH (09:00)
== END 2019-11-22 10:30 | DRG 698 ==
LOC: KA.ED 16:06 → KA.MS 18:22 → UNDOADMIN 19:15 → KA.MS 19:15
PROVIDERS: ADMIT Family Medicine; ATTEND Family Medicine
DX: T83.511A Infection and inflammatory reaction due to indwelling urethral catheter, initial encounter (principal); R79.82 Elevated C-reactive protein (CRP); D72.828 Other elevated white blood cell count; A41.50 Gram-negative sepsis, unspecified; I50.32 Chronic diastolic (congestive) heart failure; N39.0 Urinary tract infection, site not specified; I10 Essential (primary) hypertension; Z88.0 Allergy status to penicillin; Z88.1 Allergy status to other antibiotic agents; I11.0 Hypertensive heart disease with heart failure; N42.9 Disorder of prostate, unspecified; Z93.6 Other artificial openings of urinary tract status; I25.10 Atherosclerotic heart disease of native coronary artery without angina pectoris; I73.9 Peripheral vascular disease, unspecified; E54 Ascorbic acid deficiency; Z98.62 Peripheral vascular angioplasty status; E78.5 Hyperlipidemia, unspecified; N40.1 Benign prostatic hyperplasia with lower urinary tract symptoms; R33.8 Other retention of urine; G20 Parkinson's disease; K59.09 Other constipation; G89.4 Chronic pain syndrome; E53.8 Deficiency of other specified B group vitamins; H91.90 Unspecified hearing loss, unspecified ear; H54.7 Unspecified visual loss; E78.00 Pure hypercholesterolemia, unspecified; J44.9 Chronic obstructive pulmonary disease, unspecified; Z87.01 Personal history of pneumonia (recurrent); R15.9 Full incontinence of feces; Z87.440 Personal history of urinary (tract) infections; Z96.0 Presence of urogenital implants; E55.9 Vitamin D deficiency, unspecified; I80.9 Phlebitis and thrombophlebitis of unspecified site; Z79.82 Long term (current) use of aspirin; Z79.899 Other long term (current) drug therapy
CPT/HCPCS: 36415; 71045; 80048; 80053; 81001; 83605; 84145; 85025; 85027; 86140; 87040; 87070; 87086; 87088; 87186; 87205; 99284; 99285-25; A9270-GY; J0744; J1650; J7030; J7050; J7120; U0002

== ENCOUNTER 2020-02-11 19:02 | Emergency (ER) | payer MEDICARE, OTHER ==
[2020-02-11] MEDS ORDERED: Acetaminophen 500 MG Tab PO ONE (19:09)
--- NOTE | 2020-02-11 19:21 | EDM.PDOC ---
ED HPI GENERAL MEDICAL PROBLEM - General Chief Complaint: Lower Extremity Injury/Pain Stated Complaint: RIGHT FOOT PAIN Time Seen by Provider: 02/11/20 19:05 Source of Information: Reports: Patient History Limitations: Reports: No Limitations - History of Present Illness INITIAL COMMENTS - FREE TEXT/NARRATIVE: It is an 84-year-old gentleman's brought over by the alf at [facility] for complaints of right foot pain. He denies any injury or fall. He believes his foot started hurting today. He denies any swelling no redness or warmth. Onset: Today Onset Date: 02/11/20 Duration: Day(s): Location: Reports: Lower Extremity, Right Quality: Reports: Ache Severity: Mild Improves with: Reports: Rest Worsens with: Reports: Movement Associated Symptoms: Reports: No Other Symptoms - Related Data Allergies Allergy/AdvReac Type Severity Reaction Status Date / Time ceftriaxone sodium Allergy Shortness Verified 02/11/20 19:37 [From Rocephin] of Breath Penicillins Allergy Cannot Verified 02/11/20 19:37 Remember Home Meds: Home Meds Acetaminophen [Tylenol] 650 mg PO BEDTIME 11/15/15 [History] Cholecalciferol (Vitamin D3) [D3-2000] 2,000 unit PO DAILY 11/15/15 [History] Nitroglycerin [Nitrostat] 0.4 mg SL Q5M PRN 11/15/15 [History] Simvastatin [Zocor] 40 mg PO BEDTIME 11/15/15 [History] Lisinopril 5 mg PO DAILY 01/02/17 [History] Aspirin [Halfprin] 81 mg PO DAILY 06/12/19 [History] Acetaminophen [Tylenol] 650 mg PO Q6H PRN 11/18/19 [History] Carbidopa/Levodopa [Carbidopa-Levodopa 25-100 Tab] 1 tab PO TID 11/18/19 [History] Cyanocobalamin (Vitamin B-12) [Cyanocobalamin Injection] 1 ml IM ASDIRECTED 11/18/19 [History] Emollient Combination No.40 [Cetaphil] 1 applic TOP BID 11/18/19 [History] Gabapentin [Neurontin] 100 mg PO BID 11/18/19 [History] Ipratropium [place] 2 spray NASBOTH DAILY 11/18/19 [History] Sennosides/Docusate Sodium [Senna-S] 1 tab PO BID 11/18/19 [History] Sennosides/Docusate Sodium [Senna-S] 1 tab PO DAILY PRN 11/18/19 [History] bisacodyL [Bisacodyl] 5 mg PO DAILY PRN 11/18/19 [History] bisacodyL [Dulcolax] 10 mg RECTAL DAILY PRN 11/18/19 [History] Ciprofloxacin [Ciprofloxacin HCl] 500 mg PO BID #10 tablet 11/22/19 [Rx] Past Medical History HEENT History: Reports: Hard of Hearing, Impaired Vision Other HEENT History: chronic rhinitis Cardiovascular History: Reports: High Cholesterol, Hypertension, SOB on Exertion Respiratory History: Reports: COPD, Pneumonia, Recurrent Gastrointestinal History: Reports: Fecal Incontinence Genitourinary History: Reports: Prostate Disorder, UTI, Recurrent, Other (See Below) Other Genitourinary History: Indwelling catheter due to retention Musculoskeletal History: Reports: Arthritis, Other (See Below) Other Musculoskeletal History: parkinson's disease Neurological History: Reports: Parkinson's Psychiatric History: Reports: Other (See Below) Other Psychiatric History: forgetful. Endocrine/Metabolic History: Reports: Vitamin D Deficiency Other Endocrine/Metabolic History: vitamin b deficiency Hematologic History: Reports: B12 Deficiency Immunologic History: Reports: None Oncologic (Cancer) History: Reports: None Dermatologic History: Reports: None - Past Surgical History Head Surgeries/Procedures: Reports: None HEENT Surgical History: Reports: None Cardiovascular Surgical History: Reports: Other (See Below) Other Cardiovascular Surgeries/Procedures: stents in bilateral LE's Respiratory Surgical History: Reports: None GI Surgical History: Reports: Hernia Repair/Other Male Surgical History: Reports: Other (See Below) Other Male Surgeries/Procedures: prostate surgery 05/14/17 Endocrine Surgical History: Reports: None Neurological Surgical History: Reports: None Musculoskeletal Surgical History: Reports: None Social & Family History - Family History Family Medical History: Noncontributory HEENT: Reports: None Cardiac: Reports: None, DC Respiratory: Reports: None GI: Reports: None : Reports: None OBGYN: Reports: None Musculoskeletal: Reports: None Neurological: Reports: None Psychiatric: Reports: None Endocrine/Metabolic: Reports: None Hematologic: Reports: None Immunologic: Reports: None Dermatologic: Reports: None Oncologic: Reports: Other (See Below) - Caffeine Use Caffeine Use: Reports: None ED ROS GENERAL - Review of Systems Review Of Systems: Comprehensive ROS is negative, except as noted in HPI. ED EXAM, GENERAL - Physical Exam Exam: See Below Exam Limited By: No Limitations General Appearance: Alert, WD/WN, No Apparent Distress Throat/Mouth: Normal Oropharynx, Normal Voice, No Airway Compromise Head: Atraumatic, Normocephalic Neck: Normal Inspection, Supple Respiratory/Chest: No Respiratory Distress, Lungs Clear Cardiovascular: Normal Peripheral Pulses, Regular Rate, Rhythm, No Edema, No Murmur GI/Abdominal: Normal Bowel Sounds, Soft Back Exam: Normal Inspection Extremities: Normal Inspection, Normal Range of Motion. No: Joint Swelling Neurological: Alert, Oriented, No Motor/Sensory Deficits Psychiatric: Normal Affect, Normal Mood Skin Exam: Warm, Dry, Intact, Normal Color, No Rash. No: Ecchymosis, Erythema, Increased Warmth Course - Orders/Labs/Meds Meds: Medications Discontinued Medications Generic Name Dose Route Start Last Admin Trade Name Freq PRN Reason Stop Dose Admin Acetaminophen 1,000 mg 02/11/20 19:09 Tylenol Extra Strength PO 02/11/20 19:10 ONETIME ONE - Radiology Interpretation Free Text/Narrative:: 2 views right foot Findings: No fracture or dislocation is seen. There is no radiopaque foreign body in the soft tissue. No air in the soft tissues. No cortical thickening or periosteal reaction. Impression: Plain film exam Departure - Departure Time of Disposition: 19:56 Disposition: DC/Tfer to [facility] Condition: Good Clinical Impression: Foot pain, right - Discharge Information Referrals: Estevan Vance [facility]UM[facility] HELPER [Primary Care Provider] - Forms: ED Department Discharge - Assessment/Plan Assessment:: right foot pain Plan: 1. Return to [facility]. 2. WBAT on Right. 3. F/u with primary care next week for recheck.
--- NOTE | 2020-02-11 19:41 | CR ---
[id number] RAD/RAD Foot Right 2V EXAM: RAD Foot Right 2V CLINICAL DATA: PAIN COMPARISON: NO PREVIOUS SIMILAR EXAM IS AVAILABLE. FINDINGS: No fracture or dislocation is seen. There is no radiopaque foreign body in the soft tissues. There is no air in the soft tissues. There is no cortical thickening or periosteal reaction either. IMPRESSION: NEGATIVE PLAIN FILM EXAM. Wilfred Milian MD 02/11/20 [id number] Thank you for allowing us to participate in the care of your patient.
[2020-02-12 07:19] VITALS: BP 124/59; PULSE 110
== END 2020-02-11 20:34 ==
LOC: KA.ED 19:02
DX: M79.671 Pain in right foot (principal); E78.00 Pure hypercholesterolemia, unspecified; I10 Essential (primary) hypertension; J44.9 Chronic obstructive pulmonary disease, unspecified; M19.90 Unspecified osteoarthritis, unspecified site; G20 Parkinson's disease; Z88.1 Allergy status to other antibiotic agents; Z88.0 Allergy status to penicillin; Z79.82 Long term (current) use of aspirin; Z79.899 Other long term (current) drug therapy
CPT/HCPCS: 73620-RT; 99285

== ENCOUNTER 2020-03-04 10:25 | Emergency (ER) | payer MEDICARE, OTHER ==
--- NOTE | 2020-03-04 10:35 | EDM.PDOC ---
ED HPI GENERAL MEDICAL PROBLEM - General Chief Complaint: Respiratory Problem Stated Complaint: low o2 sats, crackles, Time Seen by Provider: 03/04/20 10:25 Source of Information: Reports: EMS, EMS Notes Reviewed, Shelter Records, Provider - History of Present Illness INITIAL COMMENTS - FREE TEXT/NARRATIVE: Alexandre, 84-year-old male, presents emergently via ambulance after what is presumed an aspiration pneumonia occurring this morning after breakfast. Developed coarse breath sounds that are audible from a distance and has slowly become cyanotic distal, and to his extremities in his appearance. Covid positive per retirement testing. [facility] provider air sampling and monitoring was summons via phone to discuss situation and transportation arranged to the emergency department. Upon the arrival of the ambulance staff, elevated motorman Mario stated you could hear gurgling from a distance consistent with the aspiration risk/history given. Patient had become mildly cyanotic throughout with delayed capillary refill of the extremities. O2 saturations in the low 80s on 15 L per nonrebreather. Upon initial arrival at the facility examination was performed in a isolation/negative pressure room with known Covid positive testing per retirement. His was contacted that this was a serious grave situation and was questioning if CODE STATUS change should be performed as she does not wish for him to be transferred to various facilities. Discussed that I would contact her as soon as seeing the initial lab work and chest x-ray. Onset: Today, Sudden - Related Data Allergies Allergy/AdvReac Type Severity Reaction Status Date / Time ceftriaxone sodium Allergy Shortness Verified 03/04/20 11:05 [From Rocephin] of Breath Penicillins Allergy Cannot Verified 03/04/20 11:05 Remember Home Meds: Home Meds Acetaminophen [Tylenol] 650 mg PO BEDTIME 11/15/15 [History] Nitroglycerin [Nitrostat] 0.4 mg SL Q5M PRN 11/15/15 [History] Simvastatin [Zocor] 40 mg PO BEDTIME 11/15/15 [History] Lisinopril 5 mg PO DAILY 01/02/17 [History] Aspirin [Halfprin] 81 mg PO DAILY 06/12/19 [History] Acetaminophen [Tylenol] 650 mg PO Q6H PRN 11/18/19 [History] Carbidopa/Levodopa [Carbidopa-Levodopa 25-100 Tab] 1 tab PO TID 11/18/19 [History] Cyanocobalamin (Vitamin B-12) [Cyanocobalamin Injection] 1 ml IM ASDIRECTED 11/18/19 [History] Emollient Combination No.40 [Cetaphil] 1 applic TOP BID 11/18/19 [History] Gabapentin [Neurontin] 100 mg PO BID 11/18/19 [History] Sennosides/Docusate Sodium [Senna-S] 1 tab PO BID 11/18/19 [History] Sennosides/Docusate Sodium [Senna-S] 1 tab PO DAILY PRN 11/18/19 [History] bisacodyL [Bisacodyl] 5 mg PO DAILY PRN 11/18/19 [History] bisacodyL [Dulcolax] 10 mg RECTAL DAILY PRN 11/18/19 [History] Past Medical History HEENT History: Reports: Hard of Hearing, Impaired Vision Other HEENT History: chronic rhinitis Cardiovascular History: Reports: High Cholesterol, Hypertension, SOB on Exertion Respiratory History: Reports: COPD, Pneumonia, Recurrent Gastrointestinal History: Reports: Fecal Incontinence Genitourinary History: Reports: Prostate Disorder, UTI, Recurrent, Other (See Below) Other Genitourinary History: Indwelling catheter due to retention Musculoskeletal History: Reports: Arthritis, Other (See Below) Other Musculoskeletal History: parkinson's disease Neurological History: Reports: Parkinson's Psychiatric History: Reports: Other (See Below) Other Psychiatric History: forgetful. Endocrine/Metabolic History: Reports: Vitamin D Deficiency Other Endocrine/Metabolic History: vitamin b deficiency Hematologic History: Reports: B12 Deficiency Immunologic History: Reports: None Oncologic (Cancer) History: Reports: None Dermatologic History: Reports: None - Past Surgical History Head Surgeries/Procedures: Reports: None HEENT Surgical History: Reports: None Cardiovascular Surgical History: Reports: Other (See Below) Other Cardiovascular Surgeries/Procedures: stents in bilateral LE's Respiratory Surgical History: Reports: None GI Surgical History: Reports: Hernia Repair/Other Male Surgical History: Reports: Other (See Below) Other Male Surgeries/Procedures: prostate surgery 05/14/17 Endocrine Surgical History: Reports: None Neurological Surgical History: Reports: None Musculoskeletal Surgical History: Reports: None Social & Family History - Family History Family Medical History: Noncontributory HEENT: Reports: None Cardiac: Reports: None, [place] Respiratory: Reports: None GI: Reports: None : Reports: None OBGYN: Reports: None Musculoskeletal: Reports: None Neurological: Reports: None Psychiatric: Reports: None Endocrine/Metabolic: Reports: None Hematologic: Reports: None Immunologic: Reports: None Dermatologic: Reports: None Oncologic: Reports: Other (See Below) - Caffeine Use Caffeine Use: Reports: None ED ROS GENERAL - Review of Systems Review Of Systems: See Below Constitutional: Reports: Fever, Chills, Malaise, Weakness, Other (Known Covid positive for past 12 days) HEENT: Reports: No Symptoms Respiratory: Reports: Shortness of Breath, Wheezing, Cough Cardiovascular: Denies: Chest Pain, Edema Endocrine: Reports: Fatigue GI/Abdominal: Reports: No Symptoms : Reports: No Symptoms Musculoskeletal: Reports: No Symptoms Skin: Reports: Cyanosis, Mottled, Change in Color Neurological: Reports: Confusion, Trouble Speaking Psychiatric: Reports: No Symptoms Hematologic/Lymphatic: Reports: No Symptoms Immunologic: Reports: No Symptoms ED EXAM, GENERAL - Physical Exam Exam: See Below Free Text/Narrative:: Very loud coarse breath sounds consistent with aspiration. He is alert but somewhat slow to respond. Saturations are in the 70s and 80s on 15 L nonrebreather mask. HEENT is negative discharge or deformity with cyanosis noted central in nature. Thorax is very harsh coarse crackles throughout anterior, posterior, upper and lower. Cardiac is tachycardic somewhat distant this is masked by the course respiratory cycle. Abdomen has indwelling suprapubic catheter. Minimal edema to the extremities with cyanosis noted to all extremities capillary refill of 3 seconds. Saturations vary depending on positioning and is steadily decreasing slightly. With the story and appearance fitting aspiration pneumonia allergies are reviewed and is given 900 mg of clindamycin as soon as IV established and blood was drawn. Blood cultures were not obtained secondary of poor venous access and the urgency of obtaining the administration of clindamycin. Course - Vital Signs Last Recorded V/S: Last Vital Signs Temp 37.9 C 03/04/20 10:34 Pulse 135 H 03/04/20 11:37 Resp 45 H 03/04/20 11:37 BP 159/112 H 03/04/20 11:37 Pulse Ox 53 L 03/04/20 11:37 - Orders/Labs/Meds Orders: Active Orders 24 hr Category Date Time Status B-TYPE NATRIURETIC PEPTIDE,BNP [CHEM] Stat Lab 03/04/20 10:35 Ordered COMPREHENSIVE METABOLIC PN,CMP [CHEM] Stat Lab 03/04/20 10:35 Ordered CULTURE BLOOD [BC] Stat Lab 03/04/20 10:38 Ordered CULTURE BLOOD [BC] Stat Lab 03/04/20 10:38 Stop Req Blood Culture x2 Reflex Set [OM.PC] Stat Oth 03/04/20 10:38 Cancelled Labs: Laboratory Tests 03/04/20 03/04/20 03/04/20 Range/Units 09:47 09:47 10:47 WBC 16.20 H D (5.00-10.00) 10^3/uL RBC 5.51 (4.50-6.00) 10^6/uL Hgb 15.6 D (13.0-17.0) g/dL Hct 52.0 (40.0-52.0) % MCV 94.4 H D (82.0-92.0) fL MCH 28.3 (27.0-31.0) pg MCHC 30.0 L (32.0-36.0) g/dL RDW 14.7 H (11.5-14.5) % Plt Count 247 (150-400) 10^3/uL MPV 12.6 H (7.4-10.4) fL Immature Gran % (Auto) 0.9 (0.0-5.0) % Neut % (Auto) 85.4 H (50.0-70.0) % Lymph % (Auto) 11.5 L (20.0-40.0) % [place] % (Auto) 2.0 (2.0-8.0) % Eos % (Auto) 0.0 L (1.0-3.0) % Baso % (Auto) 0.2 (0.0-1.0) % Neut # (Auto) 13.84 H (2.50-7.00) 10^3/uL Lymph # (Auto) 1.86 (1.00-4.00) 10^3/uL [place] # (Auto) 0.33 (0.10-0.80) 10^3/uL Eos # (Auto) 0.00 L (0.10-0.30) 10^3/uL Baso # (Auto) 0.03 (0.00-0.10) 10^3/uL Immature Gran # (Auto) 0.14 (0.00-0.50) 10^3/uL Sodium 151 H (136-145) mmol/L Potassium 5.3 (3.3-5.3) mmol/L Chloride 107 (98-115) mmol/L Carbon Dioxide 24.5 (21.0-32.0) mmol/L Anion Gap 24.8 H (5-15) mmol/L BUN 77 H* D (6-25) mg/dL Creatinine 3.03 H D (0.51-1.17) mg/dL Est Cr Clr Drug Dosing TNP Estimated GFR (MDRD) 20 mL/min Glucose 165 H (75 - 99) mg/dL Lactic Acid 3.6 H (0.4-2.0) mmol/L Calcium 9.0 (8.7-10.3) mg/dL Total Bilirubin 0.4 (0.2-1.0) mg/dL AST 32 (15-37) U/L ALT 6 L (12-78) U/L Alkaline Phosphatase 91 (46-116) IU/L Total Protein 9.0 H (6.4-8.2) g/dL Albumin 3.05 (3.00-4.80) g/dL Meds: Medications Discontinued Medications Generic Name Dose Route Start Last Admin Trade Name Andrewq PRN Reason Stop Dose Admin Clindamycin Phosphate 900 mg 03/04/20 10:38 03/04/20 11:01 Cleocin IV 03/04/20 10:39 900 mg ONETIME ONE Administration Sodium Chloride Confirm 03/04/20 10:51 03/04/20 11:02 Normal Saline Administered 03/04/20 10:52 100 mls/hr Dose Administration 100 mls @ as directed .ROUTE [facility] ONE Sodium Chloride Confirm 03/04/20 10:54 03/04/20 11:02 Normal Saline Administered 03/04/20 10:55 50 mls/hr Dose Administration 50 mls @ as directed .ROUTE .[facility] ONE - Radiology Interpretation Free Text/Narrative:: 1 view chest shows slight rotation and groundglass/COVID appearing chest x-ray with partial obscured right upper lobe secondary of his positioning. Read is pe nding at this time. - Re-Assessments/Exams Free Text/Narrative Re-Assessment/Exam: 03/04/20 10:46 Phone call placed to Alexandre's Ceci to notify her of the severity of this incident. Explained that it is likely an aspiration pneumonia with the sudden onset and also that it occurred after his breakfast. This on top of diagnosis of COVID-19 worsens the possibility of recovery. We do discuss his CODE STATUS to which she is willing to change pending the review of x-ray and initial reassessment/laboratory analysis. She will be contacted as soon as x-ray and CBC have been obtained and likely will implement a [place] POLST form at that time, for the change of CODE STATUS to nonaggressive measures and comfort only. Free Text/Narrative Re-Assessment/Exam: Call was placed to Ceci Jimenes giving her the information available on his poor prognosis, chest x-ray, elevated white count, likely sepsis, and renal failure. She agrees CODE STATUS should be changed to comfort measures only and is agreement no extraneous measures to be taken beyond comfort care. Form was completed witnessed signed with date and time. 03/04/20 12:20 Departure - Departure Time of Disposition: 12:16 Disposition: DC/Tfer to SNF 03 Condition: Serious Clinical Impression: Aspiration pneumonia, Code status needs review, Lab test positive for detection of COVID-19 virus, Renal failure, Sepsis - Discharge Information *PRESCRIPTION DRUG MONITORING PROGRAM REVIEWED*: Not Applicable *COPY OF PRESCRIPTION DRUG MONITORING REPORT IN PATIENT [place]: Not Applicable Referrals: Estevan Vance, DRILL GRINDER [Nurse Practitioner] - Forms: ED Department Discharge Additional Instructions: Will be returned to the [facility] with hospice consult and comfort care only. Lengthy phone call witnessed per nursing staff with his Ceci regarding the situation. She agrees that comfort care should be the focus in a POLST agreement is been completed. [facility] provider updated on the status and his agreements with the aforementioned plan. Sepsis Event Note (ED) - Focused Exam Vital Signs: Vital Signs Temp Pulse Resp BP Pulse Ox 03/04/20 11:37 135 H 45 H 159/112 H 53 L 03/04/20 11:15 138 H 46 H 123/75 79 L 03/04/20 11:00 138 H 45 H 143/75 H 79 L 03/04/20 10:45 140 H 46 H 90/65 77 L 10/31/20 10:34 37.9 C 141 H 46 H 219/196 H 88 L ED Communication - ED Communication Date/Time Date: 03/04/20 Time Called: 11:50 - Discussed Case With (1) Discussed Case With (1): Other Provider Person/s Notified (1): Estevan Vance ([facility] air sampling and monitoring) - Conversation Summary Summary Comment: Phone call to Mr. Estevan Vance, THANH, [facility] provider air sampling and monitoring today. Mr. Jimenes has had CODE STATUS changed to comfort only and his does not wish for him to be transferred for definitive care secondary of the multiple existing issues on top of his previous Covid 19 diagnosis. Will be returned to the nursing facility as able. - Problem List & Annotations (1) Lab test positive for detection of COVID-19 virus SNOMED Code(s): 1549049316244454 Code(s): U07.1 - COVID-19 Status: Acute Priority: High (2) Aspiration pneumonia SNOMED Code(s): 425396382 Code(s): J69.0 - PNEUMONITIS DUE TO INHALATION OF FOOD AND VOMIT Status: Acute Priority: High Qualifiers: Aspiration pneumonia type: due to regurgitated food Lung location: unspecified part of lung (3) Code status needs review SNOMED Code(s): 220422576 Code(s): SUY8186 - Status: Acute Priority: High (4) Renal failure SNOMED Code(s): 73918472 Code(s): N19 - UNSPECIFIED KIDNEY FAILURE Status: Acute Qualifiers: Renal failure chronicity: acute on chronic Chronic kidney disease stage: stage 4 (severe) (5) Sepsis SNOMED Code(s): 58648276 Code(s): A41.9 - SEPSIS, UNSPECIFIED ORGANISM Status: Acute Priority: High Qualifiers: Sepsis type: sepsis due to unspecified organism Sepsis acute organ dysfunction status: with acute organ dysfunction Severe sepsis acute organ dysfunction type: unspecified Severe sepsis shock status: without septic shock Qualified Code(s): A41.9 - Sepsis, unspecified organism; R65.20 - Severe sepsis without septic shock (6) Hyperglycemia SNOMED Code(s): 77977307 Code(s): R73.9 - HYPERGLYCEMIA, UNSPECIFIED Status: Acute (7) Dependence on supplemental oxygen SNOMED Code(s): 922550825675 Code(s): Z99.81 - DEPENDENCE ON SUPPLEMENTAL OXYGEN Status: Acute Priority: High - Problem List Review Problem List Initiated/Reviewed/Updated: Yes - My Orders Last 24 Hours: My Active Orders 03/04/20 10:35 B-TYPE NATRIURETIC PEPTIDE,BNP [CHEM] Stat COMPREHENSIVE METABOLIC PN,CMP [CHEM] Stat 03/04/20 10:38 CULTURE BLOOD [BC] Stat CULTURE BLOOD [BC] Stat Blood Culture x2 Reflex Set [OM.PC] Stat (Cancelled) - Assessment/Plan Last 24 Hours: My Active Orders 03/04/20 10:35 B-TYPE NATRIURETIC PEPTIDE,BNP [CHEM] Stat COMPREHENSIVE METABOLIC PN,CMP [CHEM] Stat 03/04/20 10:38 CULTURE BLOOD [BC] Stat CULTURE BLOOD [BC] Stat Blood Culture x2 Reflex Set [OM.PC] Stat (Cancelled) Plan: Will be returned to the [facility] with hospice consult and comfort care only. Lengthy phone call witnessed per nursing staff with his Ceci regarding the situation. She agrees that comfort care should be the focus in a POLST agreement is been completed. [facility] provider updated on the status and his agreements with the aforementioned plan.
[2020-03-04] MEDS ORDERED: Clindamycin Phosphate 900 MG/6 ML SDV IV ONE (10:38)
[2020-03-04] MEDS ORDERED: Sodium Chloride 0.9% 0 ML ONE (10:51)
[2020-03-04] MEDS ORDERED: Sodium Chloride 0.9% 50 ML ONE (10:54)
--- NOTE | 2020-03-04 11:18 | CR ---
[id number] RAD/RAD Chest PA or AP 1V EXAM: RAD Chest PA or AP 1V INDICATION: ASPIRATION. COMPARISON: November 18, 2019. DISCUSSION: Cardiomediastinal silhouette is normal in size and contour. Bibasilar pulmonary infiltrates. Pulmonary hyperinflation. No pneumothorax or pleural effusion. IMPRESSION: Bibasilar pulmonary infiltrates. Noam Barajas DO 03/04/20 1116 Thank you for allowing us to participate in the care of your patient.
[2020-03-04 11:30] LABS: ANION GAP 24.8 mmol/L (5-15); CHLORIDE,CL 107 mmol/L (98-115); SODIUM,NA 151 mmol/L (136-145)
[2020-03-04 11:38] VITALS: BP 159/112; PULSE 135
== END 2020-03-04 13:00 ==
LOC: KA.ED 10:25
DX: A41.89 Other specified sepsis (principal); U07.1 COVID-19; J69.0 Pneumonitis due to inhalation of food and vomit; N19 Unspecified kidney failure; E78.00 Pure hypercholesterolemia, unspecified; I10 Essential (primary) hypertension; J44.9 Chronic obstructive pulmonary disease, unspecified; M19.90 Unspecified osteoarthritis, unspecified site; G20 Parkinson's disease; Z88.1 Allergy status to other antibiotic agents; Z88.0 Allergy status to penicillin; Z79.82 Long term (current) use of aspirin; Z79.899 Other long term (current) drug therapy
CPT/HCPCS: 36415; 71045; 80053; 83605; 85025; 96365; 99285; J3490; 99284